=== PATIENT | female | born 1950 | race Caucasian/White ===

== ENCOUNTER 2016-10-18 18:59 | Inpatient (IN) | payer MEDICARE, BC ==
[~2016-10-18] VITALS: Ht 167.6 cm; Wt 88.2 kg
[~2016-10-18 18:59] MED LIST: ACET325T9 PO; ASPI325T4 PO; CHOL10003 PO; CYCL10TA2 PO; DIAZ5TAB4 PO; DIVA250T6 PO; DIVA500T9 PO; DOCU240C30 PO; FLUO10CA13 PO; FLUO10TA PO; FLUO20CA16 PO; FLUO20CA8 PO; FURO40TA4 PO; GLIM4TAB2 PO; GUAI-42 PO; HYDR-2679 PO; LANS30CA PO; LEVO100T PO; LEVO125T PO; LEVO150T PO; LEVO150T5 PO; LISI10TA2 PO; MAG30ORA2 PO; MAGN2400 PO; MAGN296S PO; MAGN400O4 PO; METH29OI TP; NICO1PAT21 TD; NYST60PO TP; OMEP20CA9 PO; OXYB10TA PO; OXYB5TAB7 PO; PANT40TA5 PO; PHEN100T82 PO; RISP1TAB3 PO; SENN8.6T3 PO; SIMV40TA3 PO; SULF1TAB24 PO; TRAZ100T12 PO; TRAZ150T55 PO
--- NOTE | 2016-10-18 19:02 | ED.ADGEN ---
Past History Past Medical History: Anxiety, Bipolar, Bronchitis, Depression, GERD, High Cholesterol, Hypertension, Hypothyroid, Sinusitis Past Surgical History: Appendectomy, Other Smoking: Less than 1pk/day Alcohol Use: Occasionally Drug Use: None Adult General Chief Complaint Chief Complaint '" This foot sore is getting worse.. I was at Dr. Brooks office.. and he said if it got worse .. I would need to be admitted.. I was at [facility] and they would not let me smoke.. so I left there and came over here..." HPI HPI Patient is a 66 year old female who presents with above hx and complaints of right foot diabetic ulcer. The areas approximately 3 x 3 cm with surrounding erythema and swelling. Does have erythema and streaking up the legs. Patient complains of pain in foot that is a deep ache. Patient does have a history of diabetes. Patient does have a history of peripheral neuropathy. Patient does have history of peripheral vascular disease. Patient normally follows with Dr. Brooks. She states she is up-to-date with tetanus. No recent travel. No specific ill contacts. No history of immunosuppression other than her diabetes. Review of Systems Review of Systems Constitutional: Hx of fever or chills [] Eyes: Denies change in visual acuity, redness, or eye pain [] HENT: Denies nasal congestion or sore throat [] Respiratory: Denies cough or shortness of breath [] Cardiovascular: No additional information not addressed in HPI [] GI: Denies abdominal pain, nausea, vomiting, bloody stools or diarrhea [] : Denies dysuria or hematuria [] Musculoskeletal: Denies back pain or joint pain []. Complaints of Rt. foot pain Integument: Denies rash or skin lesions [] Diabetic foot ulcer and cellulitis Neurologic: Denies headache, focal weakness or sensory changes [] Endocrine: Denies polyuria or polydipsia [] Family History Family History Noncontributory Current Medications Current Medications Current Medications Medications (Trade) Dose Ordered Sig/Denice Start Time Stop Time Status Last Admin Dose Admin Aspirin 325 mg 325 mg 1X ONCE 10/18/16 20:00 10/18/16 20:01 DC 10/18/16 20:54 325 MG Sodium Chloride 1,000 ml @ 1,000 mls/hr Q1H 10/18/16 19:36 10/18/16 20:35 DC 10/18/16 20:55 1,000 MLS/HR Vancomycin HCl 1 each 1 each PRN DAILY PRN 10/18/16 20:15 10/18/16 21:48 DC Vancomycin HCl/ Sodium Chloride (Iv Sodium Chloride 0.9% 250ml) 250 ml @ 250 mls/hr 1X ONCE 10/18/16 20:00 10/18/16 20:12 DC Vancomycin HCl/ Sodium Chloride (Iv Sodium Chloride 0.9% 500ml) 500 ml @ 250 mls/hr 1X ONCE 10/18/16 20:30 10/18/16 22:29 DC 10/18/16 20:55 250 MLS/HR Allergies Allergies Allergies Coded Allergies Type Severity Reaction Last Updated Verified No Known Drug Allergies 09/27/16 No Physical Exam Physical Exam Constitutional: mild distress, non-toxic appearance. [] HENT: Normocephalic, atraumatic, bilateral external ears normal, oropharynx moist, no oral exudates, nose normal. [] Eyes: PERRLA, EOMI, conjunctiva normal, no discharge. [] Neck: Normal range of motion, no tenderness, supple, no stridor. [] Cardiovascular:Heart rate regular rhythm, no murmur [] Lungs & Thorax: Bilateral breath sounds equal with scattered wheezing on auscultation [] Abdomen: Bowel sounds normal, soft, no tenderness, no masses, no pulsatile masses. [] Obese. Old surgery scar. Skin: Warm, dry, no erythema, no rash. [] Back: No tenderness, no CVA tenderness. [] Extremities: Rt. foot tenderness, no cyanosis, no clubbing, ROM intact, bilateral ankle edema. []Dorsal Rt. foot ulcer and edema as per HPI. Neurologic: Alert and oriented X 3, normal motor function, decreased sensory function, no focal deficits noted. [] Psychologic: Affect normal, judgement normal, mood normal. [] Current Patient Data Vital Signs Vital Signs Date Time Temp Pulse Resp B/P Pulse Ox O2 Delivery O2 Flow Rate FiO2 10/18/16 21:34 83 18 128/89 100 Room Air 10/18/16 18:59 98.8 Lab Results Laboratory Tests Test 10/18/16 19:27 10/18/16 21:15 Glucose (Fingerstick) 117mg/dL (70-99) H White Blood Count 9.2x10^3/uL (4.0-11.0) Red Blood Count 4.40x10^6/uL (3.50-5.40) Hemoglobin 13.1g/dL (12.0-15.5) Hematocrit 40.5% (36.0-47.0) Mean Corpuscular Volume 92fL (79-100) Mean Corpuscular Hemoglobin 30pg (25-35) Mean Corpuscular Hemoglobin Concent 32g/dL (31-37) Red Cell Distribution Width 14.1% (11.5-14.5) Platelet Count 156x10^3/uL (140-400) Neutrophils (%) (Auto) 53% (31-73) Lymphocytes (%) (Auto) 37% (24-48) Monocytes (%) (Auto) 6% (0-9) Eosinophils (%) (Auto) 3% (0-3) Basophils (%) (Auto) 0% (0-3) Neutrophils # (Auto) 4.9x10^3uL (1.8-7.7) Lymphocytes # (Auto) 3.4x10^3/uL (1.0-4.8) Monocytes # (Auto) 0.6x10^3/uL (0.0-1.1) Eosinophils # (Auto) 0.3x10^3/uL (0.0-0.7) Basophils # (Auto) 0.0x10^3/uL (0.0-0.2) Urine Collection Type Unknown Urine Color Yellow Urine Clarity Hazy Urine pH 6.0 Urine Specific [place] 1.015 Urine Protein Neg (NEG-TRACE) Urine Glucose (UA) Negmg/dL (NEG) Urine Ketones (Stick) Negmg/dL (NEG) Urine Blood Neg (NEG) Urine Nitrite Neg (NEG) Urine Bilirubin Neg (NEG) Urine Urobilinogen Dipstick 0.2mg/dL (0.2 mg/dL) Urine Leukocyte Esterase Neg (NEG) Urine RBC Rare/HPF (0-2) Urine WBC Occ/HPF (0-4) Urine Squamous Epithelial Cells Many/LPF Urine Bacteria 0/HPF (0-FEW) Urine Opiates Screen Pos (NEG) Urine Methadone Screen Neg (NEG) Urine Barbiturates Neg (NEG) Urine Phencyclidine Screen Neg (NEG) Urine Amphetamine/Methamphetamine Neg (NEG) Urine Benzodiazepines Screen Pos (NEG) Urine Cocaine Screen Neg (NEG) Urine Cannabinoids Screen Neg (NEG) Urine Ethyl Alcohol Neg (NEG) EKG EKG I interpretation of EKG shows a sinus rhythm at 89. No acute morphology. No findings acute STEMI of contralateral changes. [] Radiology/Procedures Radiology/Procedures My interpretation of right foot film shows no obvious osteomyelitis. Does have findings of soft tissue edema. And degenerative joint changes [] My interpretation of chest x-ray shows degenerative joint changes. Some chronic changes of COPD. No large infiltrate. Course & Med Decision Making Course & Med Decision Making Pertinent Labs and Imaging studies reviewed. (See chart for details). Discussed presentation, testing and tx. plan with Dr. Workman . Will admit for further eval and tx. [] Final Impression Final Impression 1. Diabetic Foot Rt. 2. COPD 3. DM 4. Tobacco Use Problems: Dragon Disclaimer Dragon Disclaimer This electronic medical record was generated, in whole or in part, using a voice recognition dictation system. EDISON BENITEZ MD Oct 18, 2016 19:01
[2016-10-18] MEDS ORDERED: IV NORMAL SALINE 1,000ML 1,000 ML IV SCH (19:36)
[2016-10-18] MEDS ORDERED: VANCOMYCIN 1 GM in IV NORMAL SALINE 250ML 250 ML IV ONE (20:00)
[2016-10-18] MEDS ORDERED: ASPIRIN 325 MG TABLET PO ONE (20:00)
[2016-10-18] MEDS ORDERED: VANCOMYCIN PER PHARMACY MC PRN (20:15)
--- NOTE | 2016-10-18 20:19 | EKG ---
[address] [address] Test Date: 2016-10-18 Test Time: 20:18:55 Pat Name: ISABEL ADAMES Department: Room: Gender: F Metal Painter: LAYNE : 1950 Requested By: EDISON BENITEZ Order Number: [id number] Reading MD: Measurements Intervals [place] Rate: 89 P: 62 OK: 182 QRS: 45 QRSD: 88 T: 46 QT: 340 QTc: 415 Interpretive Statements SINUS RHYTHM NORMAL ECG RI6.01 Unconfirmed report Compared to ECG 06/27/2015 15:22:28 No significant changes
[2016-10-18] MEDS ORDERED: VANCOMYCIN 2 GM in IV NORMAL SALINE 500ML 500 ML IV ONE (20:30)
[2016-10-18] MEDS ORDERED: ONDANSETRON PF 4 MG/2 ML VIAL. IV PRN (21:45)
[2016-10-18 21:59] LABS: BASO % 0 % (0-3); EOS # 0.3 x10^3/uL (0.0-0.7); EOS % 3 % (0-3); HEMATOCRIT 40.5 % (36.0-47.0); HEMOGLOBIN 13.1 g/dL (12.0-15.5); LYMPH # 3.4 x10^3/uL (1.0-4.8); LYMPH % 37 % (24-48); MEAN CORPUSCULAR HEMOGLOBIN 30 pg (25-35); MEAN CORPUSCULAR HGB CONC 32 g/dL (31-37); MEAN CORPUSCULAR VOLUME 92 fL (79-100); MONO # 0.6 x10^3/uL (0.0-1.1); MONO % 6 % (0-9); NEUT # 4.9 x10^3uL (1.8-7.7); NEUT % 53 % (31-73); PLATELET COUNT 156 x10^3/uL (140-400); RED CELL DISTRIBUTION WIDTH 14.1 % (11.5-14.5); WHITE BLOOD COUNT 9.2 x10^3/uL (4.0-11.0)
[2016-10-18 22:05] LABS: BARBITURATES NEG (NEG); BENZODIAZEPINES POS (NEG); CANNABINOIDS NEG (NEG); COCAINE NEG (NEG); METHADONE NEG (NEG); OPIATES POS (NEG); PHENCYCLIDINE NEG (NEG)
[2016-10-18 22:38] LABS: BILIRUBIN,URINE NEG (NEG); CLARITY,URINE HAZY; COLOR,URINE YELLOW; GLUCOSE,URINE NEG (NEG); NITRITE,URINE NEG (NEG); UROBILINOGEN,URINE 0.2 mg/dL (0.2 mg/dL)
[2016-10-18 22:39] LABS: BACTERIA,URINE 0 /HPF (0-FEW); RBC,URINE RARE /HPF (0-2); SQUAMOUS EPITHELIAL CELL,UR MANY /LPF; WBC,URINE OCC /HPF (0-4)
[2016-10-18 22:52] LABS: AMPHETAMINE/METHAMPHETAMINE NEG (NEG)
[2016-10-18] MEDS ORDERED: CEFTRIAXONE SODIUM 1 GM in IV NORMAL SALINE 50ML 50 ML IV SCH (23:00)
[2016-10-18 23:08] LABS: ALBUMIN 3.3 g/dL (3.4-5.0); DIRECT BILIRUBIN 0.1 mg/dL (0.0-0.2); POTASSIUM 4.2 mmol/L (3.5-5.1); TOTAL BILIRUBIN 0.2 mg/dL (0.2-1.0)
[2016-10-18 23:20] LABS: CREATININE 0.9 mg/dL (0.6-1.0); GFR 62.8; MAGNESIUM 1.8 mg/dL (1.8-2.4); TOTAL PROTEIN 7.2 g/dL (6.4-8.2)
[2016-10-18 23:29] LABS: CALCIUM 9.5 mg/dL (8.5-10.1)
[2016-10-18] MEDS ORDERED: IV NORMAL SALINE 500ML 500 ML ONE (23:50)
[2016-10-18 23:54] VITALS: BP 130/71
[2016-10-19] MEDS: ENOXAPARIN ** NOTE DOSE ** SYRINGE SQ SCH ×3 (00:07→20:28)
[2016-10-19] MEDS: METRONIDAZOLE 500mg PREMIX 100 ML IV SCH ×3 (00:08→14:00)
[2016-10-19] MEDS ORDERED: OXYB10TA PO (04:09)
[2016-10-19] MEDS ORDERED: FURO40TA4 PO (04:09)
[2016-10-19] MEDS ORDERED: OMEP20CA9 PO (04:09)
[2016-10-19] MEDS ORDERED: LISI10TA2 PO (04:09)
[2016-10-19] MEDS ORDERED: FLUO20CA8 PO (04:09)
[2016-10-19] MEDS ORDERED: PHEN100T91 PO (04:09)
[2016-10-19 05:00] VITALS: BP 120/73
[2016-10-19] MEDS: VANCOMYCIN PER PHARMACY MC PRN (07:52)
--- NOTE | 2016-10-19 08:03 | RAD ---
Indication: Right foot redness, swelling, abrasion, and pain. Technique: 3 views of the right foot are submitted for review. No comparison is available. Findings: There is no fracture or dislocation. There is hallux valgus deformity noted. There are degenerative changes most notably at the first metatarsal-phalangeal joint. There is bone demineralization. There is a small plantar calcaneal spur. There is soft tissue swelling noted dorsally at the level of the metatarsals. Impression: Degenerative changes and soft tissue swelling. Negative for fracture or dislocation.
--- NOTE | 2016-10-19 08:04 | RAD ---
Indication: Chest pain. Technique: Two-view chest radiograph was obtained. Comparison is from June 27, 2015. Findings: The lungs are clear. There is no pleural effusion. The heart is not enlarged and there is no heart failure. There is minimal atheromatous disease in the thoracic aorta. There are mild degenerative changes in the spine. Impression: No acute thoracic findings.
[2016-10-19] MEDS: ASPIRIN 81 MG TAB.CHEW PO SCH (08:43)
[2016-10-19] MEDS: VANCOMYCIN 1.25 GM in IV NORMAL SALINE 250ML 250 ML IV SCH ×2 (08:44→20:27)
--- NOTE | 2016-10-19 09:36 | ACF ---
Admission Criteria Forms SKIN AND WOUND CARE Clinical Indications for Inpatient Care (Place 'X' for any and all applicable criteria): Ongoing inpatient care may be indicated for pressure, venous, arterial, or neuropathic ulcers, with ANY ONE of the following (2)(3)(8)(9)(21)(25): [ ]I. Need for ANY ONE of the following(26) [ ]a) Pressure ulcer closure procedures [ ]b) Skin grafting [ ]c) Wound debridement [ ]d) Dressing change under general anesthesia [ ]e) Arterial revascularization procedures(19) (Also use Aortofemoral or Aortoiliac Bypass or Femoral Popliteal Bypass Criteria as appropriate) [ ]f) Amputation (Also use Foot: Transmetatarsal Amputation or Knee: Amputation Above or Below Knee Criteria as appropriate) [ ]g) Diverting colostomy [ ]h) Other significant surgical treatment [X]II. Infection requiring inpatient care as indicated by ALL of the following( 27) [X]a) ANY ONE of the following signs of infection: [ ]i) Poorly approximated incision line. [ ]ii) Excessive drainage [ ]iii) Foul odor [ ]iv) Pus [X]v) Increased redness [ ]vi) Breakdown in tissue after suture removal [ ]vii) Fever [X]b) ANY ONE of the following findings: [ ]i) Mental status changes [ ]ii) Dehydration [ ]iii) Bacteremia [ ]iv) Perineal infection [ ]v) Hemodynamic instability [X]vi) High-risk conditions, such as ANY ONE of the following: [X]1) Poorly controlled diabetes [ ]2) Cirrhosis [ ]3) Neutropenia [ ]4) Asplenia [ ]5) HIV infection [ ]6) Immunosuppression Extended stay beyond goal length of stay for primary condition may be needed until ALL of the following are present(1)(2)(13)(21)(27): [ ]a) Tissue necrosis absent or treatment plan manageable at lower level of care [ ]b) Fistulas, tunneling, or underlying deep tissue infection absent or treated [ ]c) Purulence and tissue breakdown absent or improved [ ]d) Ulcer surgical repair absent or healing without complications [ ]e) Wound infection absent or manageable at lower level of care [ ]f) Comorbidities absent or manageable at lower level of care The original [employer] content created by [employer] has been revised. The portions of the content which have been revised are identified through the use of italic text or in bold, and [facility] has neither reviewed nor approved the modified material. All other unmodified content is copyright [facility]. Please see references footnoted in the original [facility] edition 2016 Admission Criteria Met?: Yes PATT OJEDA Oct 19, 2016 09:36
[2016-10-19 11:41] VITALS: BP 129/71
--- NOTE | 2016-10-19 12:40 | RAD ---
Bilateral lower extremity venous ultrasound, 10/19/2016: History: Bilateral leg edema and redness Duplex evaluation of the deep veins in the lower extremities was performed including grayscale, color-flow and spectral Doppler analysis. The femoral and popliteal veins demonstrate normal compressibility and normal responses to distal augmentation maneuvers. Color imaging of those vessels shows no evidence of intraluminal clot. The visualized deep veins in both calves are patent. IMPRESSION: There is no sonographic evidence of deep vein thrombosis in either lower extremity.
--- NOTE | 2016-10-19 12:47 | RAD ---
Bilateral lower extremity arterial ultrasound, 10/19/2016: History: Edema, right foot ulcer and pain Duplex evaluation of the major arteries in both lower extremities was performed including grayscale, color-flow and spectral Doppler analysis. There are mild scattered atherosclerotic plaques bilaterally. The Doppler waveforms at the common femoral and superficial femoral arterial levels are triphasic. No significant focal velocity elevation is seen in those vessels to suggest high-grade stenosis. Triphasic Doppler waveforms were also evident at both popliteal artery levels. In both lower legs the posterior tibial, peroneal and anterior tibial arteries are patent demonstrating good triphasic and biphasic Doppler waveforms. Patent dorsalis pedis arteries are present demonstrating similar amplitude biphasic and triphasic Doppler waveforms. IMPRESSION: Mild scattered atherosclerotic plaquing in both lower extremities without evidence of significant focal stenosis.
[2016-10-19] MEDS ORDERED: MAGNESIUM HYDROXIDE 2,400 MG/30 ML ORAL.SUSP. PO PRN (14:15)
[2016-10-19] MEDS ORDERED: MAGNESIUM CITRATE 296 ML SOLUTION. PO PRN (14:15)
[2016-10-19] MEDS ORDERED: ACETAMINOPHEN 325 MG TABLET PO PRN (14:15)
[2016-10-19] MEDS ORDERED: CYCLOBENZAPRINE 10 MG TABLET. PO PRN (14:15)
[2016-10-19] MEDS ORDERED: PHENAZOPYRIDINE 100 MG TABLET. PO PRN (14:15)
[2016-10-19] MEDS ORDERED: traZODone 150 MG TABLET. PO PRN (14:15)
--- NOTE | 2016-10-19 14:59 | HP ---
ADMIT DATE: 10/19/2016 HISTORY OF PRESENT ILLNESS: The patient is a 66-year-old female patient who came to the Emergency Room of [facility] complaining that apparently she was advised by her primary care physician to get admitted and she went to [facility] and they were not let her smoke, so she left that hospital and came to our Emergency Room where she was found to have cellulitis of her right foot and was admitted to continue IV antibiotic. She has ___ dorsum of her right foot around 09/12/2016 according to her 2017, but opened and denied diabetic foot ulcer that approximately 3.3 cm with erythema and swelling that extends half way to the leg ____ it seems that the redness and swelling is receding, although the patient does not complain of any pain. She is able to walk. She has diabetic peripheral neuropathy. She was started on IV vancomycin as well as Flagyl and ceftriaxone. PAST MEDICAL HISTORY: Significant for type 2 diabetes mellitus, hypertension, hyperlipidemia, congestive heart failure, recurrent urinary tract infection, hypothyroidism, and multiple TIAs. She is also deaf in her left ear and has obstructive sleep apnea and underwent uvulopalatoplasty for that. PAST SURGICAL HISTORY: Significant for appendectomy, cervical spine fracture, left shoulder surgery, back surgery, and uvulopalatoplasty for obstructive sleep apnea. ALLERGIES: She has no known drug allergies. FAMILY HISTORY: She has 3 brothers and 1 sister, all brothers are diabetic, one of them committed suicide. Father at age of 71 due to myocardial infarction. Her father also had a CVA and cancer. Mother at age of 92 because of lung disease and complications of diabetes. SOCIAL HISTORY: She is . She has one daughter and one son. She continues to smoke. MEDICATIONS: She is currently on the following medications, she is on Tylenol 650 mg every 4 hours as needed for pain, cholecalciferol 1000 international units p.o. daily, cyclobenzaprine 10 mg 3 times a day, divalproex 1000 mg at bedtime, docusate sodium 240 mg once a day, fluoxetine 20 mg once a day, furosemide 40 mg once a day, glimepiride 4 mg b.i.d. with meals, levothyroxine sodium 150 mcg once a day, lisinopril 10 mg once a day, magnesium citrate one bottle p.o. every 72 hours for constipation, milk of magnesia 30 mL p.o. daily p.r.n. for constipation, Nystop to be applied topically twice a day, omeprazole 20 mg once a day, oxybutynin chloride 10 mg once a day, phenazopyridine 100 mg 3 times a day, senna 2 tablets twice a day, simvastatin 40 mg at bedtime, trazodone 150 mg at bedtime for insomnia. PHYSICAL EXAMINATION: GENERAL: On arrival to the Emergency Room, she looked well and was clearly in no apparent respiratory distress. Slightly pale, but no jaundice, cyanosis, or thyromegaly. No jugular venous distention. No limb edema. VITAL SIGNS: Her heart rate was 92, blood pressure 145/85, temperature was 98.8, respiratory rate was 18, and oxygen saturation was 96%. HEENT: Showed normocephalic and atraumatic. NECK: Supple. HEART: Showed normal first and second heart sounds. No gallop, rub, or murmur. CHEST: Clear to auscultation. No crepitation or rhonchi. ABDOMEN: Distended, soft, and nontender. NEUROLOGIC: She was awake, alert, and responding appropriately. Cranial nerves are intact. EXTREMITIES: She moves extremities without difficulty. She has diabetic foot ulcer that is scabbed with some erythema that is apparently receding. LABORATORY DATA: While in the Emergency Room, she had lab work done, which showed a white cell count of 9200, hemoglobin 13, hematocrit 40, MCV 92, and platelet count 156,000. Her chemistry showed a serum sodium 142, potassium 4.2, chloride 108, bicarbonate 26, anion gap of 8, BUN 15, creatinine 0.9, and estimated GFR was 63 mL per minute. Her glucose was 78, calcium was 9.5, and magnesium was 1.8. Total bilirubin, AST, ALT, and alkaline phosphatase were normal. Her beta natriuretic peptide was high at 941. Total protein was 7.2 and albumin 3.3. Her prothrombin time was 9.9, INR 1, and aPTT was 31. Urinalysis was essentially unremarkable. The urine was yellow and hazy with a pH of 6 and specific gravity of 1.015. The urine was negative for protein, glucose, ketones, blood nitrite, and leukocyte esterase. There are no bacteria. No rbc's and no wbc's. Her urine toxic screen was positive for opiates and benzodiazepine. Negative for methadone, barbiturates, minocycline, amphetamine, methamphetamine, cocaine, cannabinoids, and alcohol. DIAGNOSTIC DATA: She did have x-ray of her right foot showed no fracture or dislocation. There is hallux valgus deformity noted. There are degenerative changes most notably at the first metatarsophalangeal joint. There is bone demineralization. There is a small plantar calcaneal spur. There is soft tissue swelling noted dorsally at the level of the metatarsals. Her chest x-ray showed no acute thoracic finding. Apparently, she has bilateral lower extremity venous Doppler ultrasound, which showed no sonographic evidence of deep vein thrombosis in either lower extremity and she has also arterial Doppler ultrasound, which showed that there is mild scattered atherosclerotic plaquing in both lower extremities without evidence of significant focal stenosis. ASSESSMENT AND PLAN: The patient was admitted with right foot diabetic ulcer. She was started on vancomycin, Rocephin, and Flagyl. We will continue with her other home medications. STACEY MOORE MD DR: TASHI/paresh JOB#: [id number] / [id number]
[2016-10-19] MEDS: PIPERACILLIN/TAZOBACTAM 3.375 GM in IV NORMAL SALINE 50ML 50 ML IV SCH ×2 (15:22→22:07)
[2016-10-19 15:47] VITALS: BP 123/70
[2016-10-19] MEDS: GLIMEPIRIDE 4 MG TABLET PO SCH (17:06)
--- NOTE | 2016-10-19 18:39 | RAD ---
PROCEDURE AP chest radiograph. HISTORY PICC line placement. COMPARISON October 18, 2016. FINDINGS Cardiac silhouette appears within normal limits for size. No pneumothorax or pleural effusion is seen. No large consolidation is identified. There is evidence of mild atelectasis. There is a right-sided PICC line. The tip is somewhat difficult to see, but is thought to be at the atriocaval junction, projecting in satisfactory location. IMPRESSION 1. Right-sided PICC line tip is thought to project at the atriocaval junction in satisfactory location. 2. Bilateral atelectasis. Electronically signed by: Peter Gaona MD (Oct 19, 2016 18:39:03)
[2016-10-19 19:00] VITALS: BP 152/82
[2016-10-19] MEDS: SENNOSIDES 8.6 MG TABLET PO SCH (20:28)
[2016-10-19] MEDS: SIMVASTATIN 40 MG TABLET. PO SCH (20:28)
[2016-10-19] MEDS: DIVALPROEX ER 500 MG TAB.ER.24H PO SCH (20:29)
[2016-10-19] MEDS: OXYBUTYNIN CHLORIDE 5 MG TABLET PO SCH (20:29)
[2016-10-19] MEDS: NYSTATIN TOPICAL POWDER 30GM BOTTLE. TP SCH (21:00)
--- NOTE | 2016-10-19 21:01 | PN ---
DATE: 10/19/2016 SUBJECTIVE: The patient is resting, slightly propped up in bed, in no apparent distress. She did continue to complain of some pain in her right foot, but denied any chills, rigors, or fever. She can put on weight. She did have venous Doppler ultrasound which showed no evidence of DVT and arterial Doppler ultrasound which showed no evidence of any focal stenosis. PHYSICAL EXAMINATION: GENERAL: When I examined her this afternoon, she looked well and was clearly in no apparent respiratory distress, pale, but no jaundice, cyanosis, or thyromegaly. No jugular venous distention. No limb edema. VITAL SIGNS: Her heart rate was 90, blood pressure 129/71, temperature was 98.3, respiratory rate 20, and oxygen saturation was 96%. HEAD, EYES, EARS, NOSE AND THROAT: Normocephalic, atraumatic. NECK: Supple. HEART: Showed normal first and second heart sounds with no gallop, rub or murmur. CHEST: Clear to auscultation. No crepitation or rhonchi. ABDOMEN: Distended, soft, nontender. No guarding or rigidity. No organomegaly. Hernial orifices intact. Bowel sounds normal. NEUROLOGIC: She was awake, alert, responding appropriately. Cranial nerves intact. She moves extremities without difficulty. She has diabetic foot ulcer on the dorsum of the right foot with some swelling and an area at the scab surrounding erythema. The erythema apparently has receded distally. Her intake was 2750, no output was recorded. LABORATORY DATA: No lab work done this morning. PLAN: My plan is to discontinue her Flagyl and ceftriaxone and switch her to Zosyn, continue with vancomycin and she probably needs a PICC line placed. STACEY MOORE MD DR: TASHI/paresh JOB#: [id number] / [id number]
[2016-10-20 02:25] VITALS: BP 142/85
[2016-10-20 05:00] VITALS: BP 127/79
[2016-10-20] MEDS: PIPERACILLIN/TAZOBACTAM 3.375 GM in IV NORMAL SALINE 50ML 50 ML IV SCH ×3 (05:41→22:24)
[2016-10-20] MEDS: LEVOTHYROXINE 150 MCG TABLET PO SCH (07:20)
[2016-10-20] MEDS: VANCOMYCIN 1.25 GM in IV NORMAL SALINE 250ML 250 ML IV SCH ×2 (08:21→09:00)
[2016-10-20] MEDS: GLIMEPIRIDE 4 MG TABLET PO SCH ×2 (08:21→17:31)
[2016-10-20] MEDS: ASPIRIN 81 MG TAB.CHEW PO SCH (08:21)
[2016-10-20] MEDS: NYSTATIN TOPICAL POWDER 30GM BOTTLE. TP SCH ×2 (08:21→20:44)
[2016-10-20] MEDS: DOCUSATE CALCIUM 240 MG CAPSULE PO SCH (08:22)
[2016-10-20] MEDS: CHOLECALCIFEROL (VITAMIN D3) 1,000 UNIT TABLET PO SCH (08:22)
[2016-10-20] MEDS: FUROSEMIDE 40 MG TABLET PO SCH (08:22)
[2016-10-20] MEDS: PANTOPRAZOLE 40 MG TABLET. PO SCH (08:22)
[2016-10-20] MEDS: OXYBUTYNIN CHLORIDE 5 MG TABLET PO SCH ×2 (08:22→20:34)
[2016-10-20] MEDS: FLUOXETINE HCL 20 MG CAPSULE PO SCH (08:22)
[2016-10-20] MEDS: LISINOPRIL 10 MG TABLET PO SCH (08:22)
[2016-10-20] MEDS: SENNOSIDES 8.6 MG TABLET PO SCH ×2 (08:23→20:36)
[2016-10-20] MEDS: ENOXAPARIN ** NOTE DOSE ** SYRINGE SQ SCH ×2 (08:25→20:36)
[2016-10-20 08:55] LABS: ALBUMIN 3.3 g/dL (3.4-5.0); ALBUMIN/GLOBULIN RATIO 0.8 (1.0-1.7); C REACTIVE PROTEIN 6.1 mg/L (0-3.3); CALCIUM 9.5 mg/dL (8.5-10.1); GFR 55.6; POTASSIUM 4.4 mmol/L (3.5-5.1); TOTAL BILIRUBIN 0.3 mg/dL (0.2-1.0); TOTAL PROTEIN 7.2 g/dL (6.4-8.2); VANC TR 26.1 mcg/mL (10.0-20.0)
[2016-10-20 10:51] VITALS: BP 152/88
[2016-10-20] MEDS: VANCOMYCIN PER PHARMACY MC PRN (11:34)
[2016-10-20] MEDS ORDERED: ASPI325T4 PO (11:43)
[2016-10-20] MEDS ORDERED: GOLD1CAP5 PO (11:44)
[2016-10-20] MEDS ORDERED: IBUP800T PO (11:45)
[2016-10-20] MEDS ORDERED: GLUC100018 PO (11:45)
[2016-10-20] MEDS ORDERED: MULT-208 PO (11:46)
[2016-10-20] MEDS ORDERED: OMEG1CAP38 PO (11:47)
[2016-10-20] MEDS ORDERED: PANT40TA5 PO (11:47)
[2016-10-20 14:27] VITALS: BP 121/62
--- NOTE | 2016-10-20 14:44 | RAD ---
Three-phase bone scan, 10/20/2016: History: Right foot wound Imaging of the feet was performed following IV injection of 26 mCi of technetium 99m MDP. The dynamic flow study demonstrates generalized hyperemia involving the right foot and ankle compared to the left. A focal area of increased activity developed at the left hindfoot level on the later images of the flow study. This is also evident on the blood pool images. There is a lesser degree of abnormal focal activity at the left midfoot level medially. On the delayed images there is moderate focal increased activity in the anterior calcaneal region on the left near the calcaneocuboid articulation, similar to that seen on the blood pool images. There is also mildly increased activity medially at the left midfoot level similar to that seen on the blood pool images. On the right, there is a focus of increased activity in the region of the calcaneocuboid articulation on the delayed images. This is a nonspecific appearance, likely due to arthritis. No abnormal osseous uptake is seen over the dorsum of the right foot in the reported region of the patient's foot wound. IMPRESSION: 1. Small focus of nonspecific increased activity at approximately the right calcaneocuboid joint level, likely due to arthritis. 2. No abnormal osseous uptake at the dorsal midfoot level on the right to suggest osteomyelitis. 3. Hyperemia and abnormal bony activity in the left calcaneocuboid articulation region and along the medial aspect of the left midfoot of uncertain significance. Correlation with radiographic findings is suggested.
[2016-10-20] MEDS ORDERED: ERTA1VIA IJ (15:32)
[2016-10-20] MEDS ORDERED: DOXY100T9 PO (15:32)
[2016-10-20 15:54] LABS: BASO # 0.1 x10^3/uL (0.0-0.2); BASO % 1 % (0-3); EOS # 0.3 x10^3/uL (0.0-0.7); EOS % 4 % (0-3); HEMATOCRIT 40.6 % (36.0-47.0); HEMOGLOBIN 13.2 g/dL (12.0-15.5); LYMPH # 3.1 x10^3/uL (1.0-4.8); LYMPH % 41 % (24-48); MEAN CORPUSCULAR HEMOGLOBIN 30 pg (25-35); MEAN CORPUSCULAR HGB CONC 32 g/dL (31-37); MEAN CORPUSCULAR VOLUME 91 fL (79-100); MONO # 0.6 x10^3/uL (0.0-1.1); MONO % 8 % (0-9); NEUT # 3.5 x10^3uL (1.8-7.7); NEUT % 46 % (31-73); PLATELET COUNT 152 x10^3/uL (140-400); RED BLOOD COUNT 4.46 x10^6/uL (3.50-5.40); RED CELL DISTRIBUTION WIDTH 13.4 % (11.5-14.5); WHITE BLOOD COUNT 7.6 x10^3/uL (4.0-11.0)
[2016-10-20 17:03] LABS: SEDIMENTATION RATE 23 (0-25)
[2016-10-20 19:50] VITALS: BP 120/77
[2016-10-20] MEDS: DIVALPROEX ER 500 MG TAB.ER.24H PO SCH (20:34)
[2016-10-20] MEDS: SIMVASTATIN 40 MG TABLET. PO SCH (20:36)
[2016-10-20] MEDS ORDERED: VANCOMYCIN 1.25 GM in IV NORMAL SALINE 250ML 250 ML IV SCH (21:00)
[2016-10-20 23:23] VITALS: BP 140/81
--- NOTE | 2016-10-21 00:40 | PN ---
DATE: 10/20/2016 SUBJECTIVE: The patient is resting, slightly propped up in bed, in no apparent distress. The nursing staff did not voice any concern except that she is not allowing to treat her wound on her dorsum of the right foot that is scabbed. Apparently, her primary care physician did not order any cultures from her wounds as an outpatient; however, she remains afebrile and hemodynamically stable with normal white cell count. I did speak with ____ and he recommended discharging her home on Invanz and doxycycline; however, we will continue today with vancomycin and Zosyn and eventually she will be discharged tomorrow home with home health. She already had a PICC line. PHYSICAL EXAMINATION: GENERAL: On examining her, she looked well, slightly pale, but no jaundice, cyanosis or thyromegaly. No jugular venous distention. No limb edema. VITAL SIGNS: Her heart rate was 91, blood pressure 121/62, temperature was 98.6, respiratory rate was 20 and oxygen saturation was 96%. The rest of clinical examination is unremarkable and has not really changed. LABORATORY DATA: Her lab work this morning showed a serum sodium 145, potassium 4.4, chloride 108, bicarbonate 30, anion gap of 7, BUN 12, creatinine 1, estimated GFR was 55 mL per minute. Her glucose was 74. Calcium was 9.5. Total bilirubin, AST, ALT, alkaline phosphatase were normal. Her C-reactive protein was only 6.1 mg/dL. Total protein was 7.2. Albumin was 3.3. ASSESSMENT: Diabetic foot ulcer, to continue with IV antibiotic in the form of vancomycin and Zosyn, type 2 diabetes seemed to be well controlled, hypertension seemed to be well controlled, congestive heart failure seemed to be clinically well-compensated, hyperlipidemia on atorvastatin and hypothyroidism for which she is on levothyroxine 150 mcg once a day. STACEY MOORE MD DR: TASHI/paresh JOB#: [id number] / [id number]
[2016-10-21] MEDS: PIPERACILLIN/TAZOBACTAM 3.375 GM in IV NORMAL SALINE 50ML 50 ML IV SCH (05:54)
[2016-10-21 06:02] VITALS: BP 125/62
[2016-10-21] MEDS: LEVOTHYROXINE 150 MCG TABLET PO SCH (06:09)
[2016-10-21] MEDS: DOCUSATE CALCIUM 240 MG CAPSULE PO SCH (08:17)
[2016-10-21] MEDS: SENNOSIDES 8.6 MG TABLET PO SCH (08:17)
[2016-10-21] MEDS: FUROSEMIDE 40 MG TABLET PO SCH (08:18)
[2016-10-21] MEDS: ENOXAPARIN ** NOTE DOSE ** SYRINGE SQ SCH (08:18)
[2016-10-21] MEDS: LISINOPRIL 10 MG TABLET PO SCH (08:18)
[2016-10-21] MEDS: CHOLECALCIFEROL (VITAMIN D3) 1,000 UNIT TABLET PO SCH (08:18)
[2016-10-21] MEDS: ASPIRIN 81 MG TAB.CHEW PO SCH (08:18)
[2016-10-21] MEDS: FLUOXETINE HCL 20 MG CAPSULE PO SCH (08:18)
[2016-10-21] MEDS: GLIMEPIRIDE 4 MG TABLET PO SCH (08:18)
[2016-10-21] MEDS: PANTOPRAZOLE 40 MG TABLET. PO SCH (08:18)
[2016-10-21] MEDS: OXYBUTYNIN CHLORIDE 5 MG TABLET PO SCH (08:18)
[2016-10-21] MEDS: NYSTATIN TOPICAL POWDER 30GM BOTTLE. TP SCH (08:19)
[2016-10-21 10:56] VITALS: BP 127/57
[2016-10-21] MEDS ORDERED: ERTAPENEM 1 GM in IV NORMAL SALINE 50ML 50 ML IV ONE (11:00)
--- NOTE | 2016-10-23 21:29 | DS ---
DATE OF DISCHARGE: 10/21/2016 HOSPITAL COURSE: The patient is a 66-year-old female patient who was admitted with diabetic foot ulcer and was started on IV vancomycin and Zosyn. She did very well and remained afebrile, hemodynamically stable with normal white cell count, and a decision was made to discharge her home with home health to continue with antibiotic in the form of Invanz as well as oral doxycycline, and to follow with her primary care physician as an outpatient. PHYSICAL EXAMINATION: GENERAL: On examining her on the day of discharge, she looked well and was clearly in no apparent respiratory distress, pale, but no jaundice, cyanosis or thyromegaly. No jugular venous distention. No limb edema. VITAL SIGNS: Her heart rate was 101, blood pressure was 127/57, temperature was 98.3, respiratory rate was 20, and oxygen saturation was 97%. HEAD, EYES, EARS, NOSE AND THROAT: Showed normocephalic, atraumatic. NECK: Supple. HEART: Showed normal first and second heart sounds with no gallop, rub or murmur. CHEST: Clear to auscultation. No crepitation or rhonchi. ABDOMEN: Distended, soft, nontender. No guarding or rigidity. No organomegaly. Hernial orifices intact. Bowel sounds are normal. NEUROLOGIC: She was awake, alert, responding appropriately. Cranial nerves are intact. She moves extremities without difficulty. She ambulates without assistance or assistive devices. EXTREMITIES: Has a diabetic foot ulcer with wound scabbed. The erythema has largely resolved faded away as well as the swelling. LABORATORY DATA: On day of discharge showed a white cell count 7600, hemoglobin 13, hematocrit 40, MCV 91, and platelet count of 152,000. Her serum sodium was 145, potassium 4.4, chloride 108, bicarbonate 30, anion gap of 7, BUN 12, creatinine 1, estimated GFR was 55 mL per minute. Her glucose was 74, calcium was 9.5. Total bilirubin, AST, ALT, alkaline phosphatase were normal. Her C-reactive protein was 6.1. Total protein was 7.2, albumin was 3.3. Her sedimentation rate was 23. DISCHARGE MEDICATIONS: She was discharged home to continue on doxycycline 100 mg p.o. b.i.d. for 10 days and ertapenem sodium for Invanz 1 gram IV daily for 10 days. She should continue on Tylenol 650 mg every 4 hours, aspirin 325 mg once a day, cholecalciferol, vitamin D3 2000 International units once a day, Flexeril 10 mg 3 times a day, divalproex sodium 1000 mg p.o. at bedtime, Colace, docusate calcium 240 mg at bedtime, fluoxetine 20 mg once a day, glimepiride 4 mg twice a day, glucosamine sulfate 1500 mg p.o. b.i.d., ibuprofen 800 mg twice a day, levothyroxine sodium 150 mcg once a day, magnesium citrate 296 mL p.o. daily p.r.n. for constipation, milk of magnesia 30 mL p.o. daily p.r.n. for constipation, multivitamin 1 tablet once a day, Nystop powder applied topically twice a day, [place]-3 fatty acid 2 capsules once a day, oxybutynin chloride 10 mg daily, Protonix 40 mg once a day, phenazopyridine 100 mg t.i.d., senna 2 tablets twice a day, simvastatin 40 mg at bedtime. FINAL DISCHARGE DIAGNOSES: 1. Diabetic foot ulcer, to continue with IV antibiotic in the form of ertapenem and oral doxycycline. 2. Type 2 diabetes, seems to be reasonably controlled. 3. Hypertension. 4. Hyperlipidemia. 5. Congestive heart failure. 6. Hypothyroidism. STACEY MOORE MD DR: TASHI/paresh JOB#: [id number] / [id number]
== END 2016-10-21 14:06 | disposition home health service (06) | DRG 638 ==
LOC: ER 18:59 → 1 SOUTH 21:43
PROVIDERS: ADMIT Internal Medicine; ATTEND Internal Medicine
DX: E11.621 Type 2 diabetes mellitus with foot ulcer (principal); L03.115 Cellulitis of right lower limb; E03.9 Hypothyroidism, unspecified; E11.42 Type 2 diabetes mellitus with diabetic polyneuropathy; E78.00 Pure hypercholesterolemia, unspecified; E78.5 Hyperlipidemia, unspecified; F17.200 Nicotine dependence, unspecified, uncomplicated; G47.33 Obstructive sleep apnea (adult) (pediatric); H91.90 Unspecified hearing loss, unspecified ear; I11.0 Hypertensive heart disease with heart failure; F41.9 Anxiety disorder, unspecified; K21.9 Gastro-esophageal reflux disease without esophagitis; L97.519 Non-pressure chronic ulcer of other part of right foot with unspecified severity; I50.9 Heart failure, unspecified; F32.9 Major depressive disorder, single episode, unspecified; Z82.3 Family history of stroke; Z82.49 Family history of ischemic heart disease and other diseases of the circulatory system; Z86.73 Personal history of transient ischemic attack (TIA), and cerebral infarction without residual deficits; Z83.3 Family history of diabetes mellitus; Z87.440 Personal history of urinary (tract) infections; Z90.49 Acquired absence of other specified parts of digestive tract
CPT/HCPCS: 36415; 36569; 71010; 71020; 73630; 78315; 80048; 80053; 80076; 80202; 81001; 82553; 82947; 83690; 83735; 83880; 84443; 84484; 85027; 85610; 85651; 85730; 86140; 87040; 93005; 93923; 93970; 96365; 96366; 96374; A9503; G0481; J0696; J1335; J1650; J2543; J3370; J3490; J7040; J7050; 99285-25; J7030

== ENCOUNTER 2016-12-02 18:54 | Inpatient (IN) | payer MEDICARE, BC ==
[~2016-12-02] VITALS: Ht 167.6 cm; Wt 85.3 kg
[~2016-12-02 18:54] MED LIST changes: -ASPI325T4 PO; +ASPI325T8 PO; +CYCL-331 PO; -CYCL10TA2 PO; +DOXY100T9 PO; +ERTA1VIA IJ; +GLUC100018 PO; +GOLD1CAP5 PO; +GUAI-107 PO; -GUAI-42 PO; +IBUP800T19 PO; -MAGN296S PO; +MAGN296S9 PO; -MAGN400O4 PO; +MAGN400O7 PO; +MULT-208 PO; +OMEG1CAP38 PO; +PHEN-443 PO; +SENN-79 PO; -SENN8.6T3 PO; +TRAZ-90 PO; -TRAZ100T12 PO; +TRAZ150T49 PO; -TRAZ150T55 PO
--- NOTE | 2016-12-02 19:46 | EKG ---
[address] [address] Test Date: 2016-12-02 Test Time: 19:45:27 Pat Name: ISABEL ADAMES Department: Room: Gender: F Nursing Faculty: : [id number] Requested By: STEVE HOLLOWAY Order Number: [id number] Reading MD: Norman Owen Measurements Intervals [place] Rate: 82 P: 66 RI: 200 QRS: 30 QRSD: 88 T: 47 QT: 362 QTc: 426 Interpretive Statements SINUS RHYTHM Electronically Signed On 12-06-2016 9:38:01 CDT by Norman Owen
[2016-12-02] MEDS ORDERED: 0.9 % SODIUM CHLORIDE 10 ML DISP.SYRIN. IV PRN (20:30)
[2016-12-02 20:37] LABS: BASO # 0.1 x10^3/uL (0.0-0.2); BASO % 0 % (0-3); EOS # 0.2 x10^3/uL (0.0-0.7); EOS % 2 % (0-3); HEMATOCRIT 41.9 % (36.0-47.0); HEMOGLOBIN 13.9 g/dL (12.0-15.5); LYMPH # 3.2 x10^3/uL (1.0-4.8); LYMPH % 25 % (24-48); MEAN CORPUSCULAR HEMOGLOBIN 30 pg (25-35); MEAN CORPUSCULAR HGB CONC 33 g/dL (31-37); MEAN CORPUSCULAR VOLUME 91 fL (79-100); MONO # 0.8 x10^3/uL (0.0-1.1); MONO % 6 % (0-9); NEUT # 8.5 x10^3uL (1.8-7.7); NEUT % 67 % (31-73); PLATELET COUNT 238 x10^3/uL (140-400); RED BLOOD COUNT 4.63 x10^6/uL (3.50-5.40); RED CELL DISTRIBUTION WIDTH 14.7 % (11.5-14.5); WHITE BLOOD COUNT 12.7 x10^3/uL (4.0-11.0)
[2016-12-02 20:41] LABS: CALCIUM 10.1 mg/dL (8.5-10.1); CREATININE 1.5 mg/dL (0.6-1.0); GFR 34.9; POTASSIUM 3.6 mmol/L (3.5-5.1)
[2016-12-02 20:42] LABS: SALIC 5.4 mg/dL (2.8-20.0)
[2016-12-02 20:43] LABS: ACETAMIN < 2.0 mcg/mL (10-30)
[2016-12-02] MEDS ORDERED: IV NORMAL SALINE 1,000ML 1,000 ML IV SCH (20:45)
[2016-12-02 21:15] LABS: BACTERIA,URINE 0 /HPF (0-FEW); BILIRUBIN,URINE NEG (NEG); CLARITY,URINE CLEAR; COLOR,URINE STRAW; GLUCOSE,URINE NEG (NEG); NITRITE,URINE NEG (NEG); RBC,URINE OCC /HPF (0-2); UROBILINOGEN,URINE 0.2 mg/dL (0.2 mg/dL)
[2016-12-02 21:16] LABS: SQUAMOUS EPITHELIAL CELL,UR FEW /LPF
--- NOTE | 2016-12-02 21:16 | PHYS DOC ---
General Chief Complaint: PSYCH EVALUATION Stated Complaint: patient is in a manic phase of her bipolar Time Seen by MD: 19:02 Source: patient, family Exam Limitations: clinical condition Problems: History of Present Illness Initial Comments Patient is a pleasant 66-year-old female with history of bipolar disorder and anxiety bronchitis depression and reflux cholesterol hypertension and thyroidism sinusitis or surgical history of appendicitis removed by appendectomy presents with manic episode. She is in an extended care facility has had 3 distinct manic episodes requiring hospitalization in the last 6 months. Patient was seen and assessed by a neonatal social worker today who recommended family that she was brought into the ER for evaluation and admission. Patient personally denies any auditory or visual hallucinations denies any suicidal or homicidal thoughts denies any chest pain abdominal pain or other symptoms at this time she's been very noncompliant with medication and actually sound recording her medications of the last several weeks she's not been eating sleeping or drinking Timing/Duration: getting worse, changing over time Severity: severe Associated Symptoms: denies symptoms Allergies: Coded Allergies: No Known Drug Allergies (Unverified , 09/27/16) Past Medical History Psych/General History: anxiety, bipolar, depression, other (hypothyroidism bronchitis anxiety hypertension sinusitis depression and reflux) Surgical History: noncontributory Social History Smoker: non-smoker Alcohol: none Drugs: none Review of Systems Constitutional: no symptoms reported EENTM: no symptoms reported Respiratory: no symptoms reported Cardiovascular: no symptoms reported Gastrointestinal: no symptoms reported Genitourinary: no symptoms reported Musculoskeletal: no symptoms reported Skin: no symptoms reported Psychiatric/Neurological: anxiety All Other Systems: Reviewed and Negative Physical Exam General Appearance: no apparent distress HEENT: PERRL/EOMI, normal ENT inspection Neck: non-tender, full range of motion Respiratory: chest non-tender, lungs clear Cardiovascular: normal peripheral pulses, regular rate, rhythm, no edema Gastrointestinal: normal bowel sounds, non tender, soft Extremities: normal range of motion Neurological/Psychiatric: alert, calm, oriented x 3 Appearance/Memory/Insight: appropriate appearance, denies illness, impaired insight Behavior/Eye Contact/Speech: avoids eye contact, compulsive Thoughts/Hallucinations: delusions, flight of ideas, incoherent Skin: normal color, warm/dry Orders, Labs, Meds Vital Signs Date Time Temp Pulse Resp B/P Pulse Ox O2 Delivery O2 Flow Rate FiO2 12/02/16 19:47 97.7 82 20 98 Room Air Vital Signs Date Time Temp Pulse Resp B/P Pulse Ox O2 Delivery O2 Flow Rate FiO2 12/02/16 19:47 97.7 82 20 98 Room Air Patient is a pleasant 66-year-old female with history of bipolar disorder presently in a manic phase. She's had some very bizarre grandiose behavior becoming increasingly agitated. She is gotten involved in a number of difficult situations she's been hoarding her medications and not treating her problems as appropriate. She is brought here by family clear that she was not adequately medicated. Inner margin from she's been human of stable although she has had some flights of ideas and some confusion she became relatively somnolent when it was discovered her Accu-Chek was 43 at that point in time patient was fed repeatedly and now has normal glucose levels. With that her mental status is baseline but is still confused and she has been evaluated by social work and psychiatric consultation here in the emergency department and she has been accepted to the senior behavioral health floor at [facility]. Vital Signs Date Time Temp Pulse Resp B/P Pulse Ox O2 Delivery O2 Flow Rate FiO2 12/02/16 19:47 97.7 82 20 98 Room Air Vital Signs Date Time Temp Pulse Resp B/P Pulse Ox O2 Delivery O2 Flow Rate FiO2 12/02/16 19:47 97.7 82 20 98 Room Air Patient's BUN/creatinine are mildly elevated which demonstrate probably decreased oral intake both food and fluids given her hypoglycemia. It is also noted that her CMP: no e/o severe acidosis, alkalosis, renal failure, diabetic ketoacidosis, liver disease were normal With the exception of glucose. It also is noted that the patient's EKG was unremarkable, patient's EKG actually was read by [id number] that showed a heart rate of 82 with a normal QRS normal sinus rhythm no ischemic changes electrolyte abnormalities noted on QRS formation. Analysis was evaluated concerning only slightly red blood cells minimal white blood cells but no bacteria. Doubt UTI as a cause of her symptoms. Patient was accepted and admitted to . She is stable for transfer vital signs within normal limits. Final impression bipolar disorder manic phase. No glycemia dehydration STEVE HOLLOWAY MD Dec 02, 2016 21:16
[2016-12-02] MEDS ORDERED: DEXTROSE 50% 25 GM / 50ML DISP.SYRIN. IV ONE (21:30)
--- NOTE | 2016-12-03 01:46 | ACF ---
Admission Criteria Forms PSYCHIATRIC DISORDERS Clinical Indications for Inpatient Care (Place 'X' for any and all applicable criteria): Ongoing inpatient care may be needed for ANY ONE of the following(1)(2)(3)(4)(6) (7)(8): [ ]I. Danger to self or others not manageable at lower level of care. [ ]II. Grave disability (eg, inability to perform self care necessary at lower level of care) [ ]III. Agitation or inappropriate behavior interfering with care for primary condition (eg, attempting to discontinue lines or drains prematurely, unable to cooperate with respiratory care) [X ]IV. Severe disability or disorder indicated by ALL of the following: [X ]a) Severe behavioral health disorder-related symptoms or condition indicated by ANY ONE of the following: [ ]i) Severe problem with cognition, memory, judgment, or impulse control [X ]ii) Severe clinical manifestations (eg, hallucinations , delusions, other acute psychotic symptoms, toño, extreme agitation or anxiety) [X ]b) Patient management at lower level of care is not feasible until acute intervention or modification is initiated. Extended stay beyond goal length of stay for the primary condition may be indicated when ANY ONE of the following is present: (1)(2)(3)(4): [ ]a) Patient is a danger to self or others and not manageable at lower level of care. [ ]b) Behavior crisis management, including physical or chemical restraints, is required and is not available at a lower level of care. [ ]c) Behavioral symptoms (e.g., agitation, somnolence, inappropriate behavior) are present, and are not manageable at a lower level of care. [ ]d) Patient cannot understand follow-up treatment and crisis plan. [ ]e) Provider and supports are not sufficiently available at lower level of care. [ ]f) Patient cannot participate (e.g., verify absence of plan for harm) and is in needed of monitoring. The original [facility] [employer] content created by [facility] [employer] has been revised. The portions of the content which have been revised are identified through the use of italic text or in bold, and [facility] has neither reviewed nor approved the modified material. All other unmodified content is copyright [facility]. Please see references footnoted in the original [facility] edition 2016 Admission Criteria Met?: Yes ALOK DICK Dec 03, 2016 01:46
[2016-12-03 02:11] VITALS: BP 98/58
[2016-12-03] MEDS ORDERED: TRAZ150T49 PO ×2 (02:14)
[2016-12-03] MEDS ORDERED: FLUO10CA13 PO (02:14)
[2016-12-03] MEDS ORDERED: METHYL SALICYLATE/MENTHOL TOPICAL OINTMENT 29GM TUBE. TP PRN (02:15)
[2016-12-03] MEDS ORDERED: MAG HYDROX/AL HYDROX/SIMETH 30 ML ORAL.SUSP PO PRN (02:15)
[2016-12-03] MEDS ORDERED: CYCLOBENZAPRINE 10 MG TABLET. PO PRN (02:30)
[2016-12-03] MEDS ORDERED: MAGNESIUM CITRATE 296 ML SOLUTION. PO PRN (02:30)
[2016-12-03] MEDS ORDERED: NYSTATIN TOPICAL POWDER 15GM BOTTLE. TP PRN (02:30)
[2016-12-03 03:17] LABS: VAL ACID 70 mcg/mL (50-100)
[2016-12-03 05:50] VITALS: BP 91/61
[2016-12-03] MEDS ORDERED: LEVOTHYROXINE 150 MCG TABLET PO SCH (07:00)
[2016-12-03] MEDS: FLUoxetine HCL 10 MG CAPSULE PO SCH (08:13)
[2016-12-03] MEDS: NICOTINE 21MG PATCH. TD SCH (08:13)
[2016-12-03] MEDS: CHOLECALCIFEROL (VITAMIN D3) 1,000 UNIT TABLET PO SCH (08:13)
[2016-12-03] MEDS: OXYBUTYNIN CHLORIDE 5 MG TABLET PO SCH ×2 (08:13→20:00)
[2016-12-03] MEDS: SENNOSIDES 8.6 MG TABLET PO SCH ×2 (08:13→20:01)
[2016-12-03] MEDS: PANTOPRAZOLE 40 MG TABLET. PO SCH (08:13)
[2016-12-03] MEDS: GLIMEPIRIDE 4 MG TABLET PO SCH ×2 (08:13→17:00)
[2016-12-03 15:36] VITALS: BP 110/79
[2016-12-03 19:09] LABS: T3 TOTAL 110 ng/dL (71-180); THYROXINE 13.1 ug/dL (4.5-12.0)
[2016-12-03] MEDS: DOCUSATE CALCIUM 240 MG CAPSULE PO SCH (20:00)
[2016-12-03] MEDS: traZODone 150 MG TABLET. PO SCH (20:00)
[2016-12-03] MEDS: SIMVASTATIN 40 MG TABLET. PO SCH (20:00)
[2016-12-03] MEDS: DIVALPROEX ER 500 MG TAB.ER.24H PO SCH (20:00)
--- NOTE | 2016-12-03 20:58 | PDOC ---
Exam Cory Demential Exam: Cory Note: Please also refer to the separate dictated note~for this date of service dictated separately.~Patient seen individually. Discussed the patient with Nursing staff reviewed the chart.~Reviewed interim history and current functioning. Reviewed vital signs,~Labs/ Radiology~and current medications noted below. Continue current treatment with the changes noted in the dictated addendum note Assessment: Vital Signs: Vital Signs Date Time Temp Pulse Resp B/P Pulse Ox O2 Delivery O2 Flow Rate FiO2 12/03/16 15:36 98.4 91 20 110/79 98 Room Air Labs: Laboratory Tests Test 12/02/16 21:23 12/02/16 22:28 12/03/16 00:14 12/03/16 07:41 Glucose (Fingerstick) 45mg/dL (70-99) L 122mg/dL (70-99) H 121mg/dL (70-99) H 81mg/dL (70-99) Test 12/03/16 11:16 12/03/16 16:46 12/03/16 19:08 Glucose (Fingerstick) 168mg/dL (70-99) H 129mg/dL (70-99) H 210mg/dL (70-99) H Current Medications: Meds: Current Medications Sodium Chloride (Iv Sodium Chloride 0.9% 1,000ml) 1,000 ml @ 1,000 mls/hr Q1H IV ; Start 12/02/16 at 20:45; Stop 12/02/16 at 21:44; Status DC Sodium Chloride (Normal Saline Flush) 10 ml QSHIFT PRN IV AFTER MEDS AND BLOOD DRAWS; Start 12/02/16 at 20:30 Dextrose 25 gm 1X ONCE IV ; Start 12/02/16 at 21:30; Stop 12/02/16 at 21:38; Status DC Acetaminophen (Tylenol) 650 mg PRN Q6HRS PRN PO PAIN / TEMP; Start 12/03/16 at 02:15 Multi-Ingredient Ointment (Analgesic [place]) 1 gisselle PRN QID PRN TP MUSCLE PAIN; Start 12/03/16 at 02:15 Al Hydroxide/Mg Hydroxide (Mylanta Plus Xs) 15 ml PRN AFTMEALHC PRN PO DYSPEPSIA; Start 12/03/16 at 02:15 Magnesium Hydroxide (Milk Of Magnesia) 2,400 mg PRN QHS PRN PO CONSTIPATION; Start 12/03/16 at 02:15 Nicotine (Nicoderm Cq 21mg) 1 patch DAILY TD Last administered on 12/03/16 08: 13; Start 12/03/16 at 09:00 Fluoxetine HCl (Prozac) 10 mg DAILY PO Last administered on 12/03/16 08:13; Start 12/03/16 at 09:00 Trazodone HCl (Desyrel) 150 mg PRN QHS PRN PO INSOMNIA; Start 12/03/16 at 02:15 Trazodone HCl (Desyrel) 150 mg QHS PO Last administered on 12/03/16 20:00; Start 12/03/16 at 21:00 Divalproex Sodium (Depakote Er) 1,000 mg QHS PO Last administered on 12/03/16 20:00; Start 12/03/16 at 21:00 Vitamin D (Vitamin D3) 2,000 unit DAILY PO Last administered on 12/03/16 08:13 ; Start 12/03/16 at 09:00 Cyclobenzaprine HCl (Flexeril) 10 mg PRN TID PRN PO MUSCLE SPASMS; Start at 02:30 Docusate Calcium (Surfak) 240 mg QHS PO Last administered on 12/03/16 20:00; Start 12/03/16 at 21:00 Glimepiride (Amaryl) 4 mg BIDWMEALS PO Last administered on 12/03/16 08:13; Start 12/03/16 at 08:00; Stop 12/03/16 at 18:04; Status DC Levothyroxine Sodium (Synthroid) 150 mcg DAILY07 PO Last administered on 05:53; Start 12/03/16 at 07:00; Stop 12/03/16 at 18:04; Status DC Magnesium Citrate (Citroma) 296 ml PRN DAILY PRN PO CONSTIPATION; Start at 02:30 Nystatin (Nystop) 1 gisselle PRN BID PRN TP YEAST; Start 12/03/16 at 02:30 Pantoprazole Sodium (Protonix) 40 mg DAILYAC PO Last administered on 12/03/16 08:13; Start 12/03/16 at 07:30 Sennosides (Senna) 17.2 mg BID PO Last administered on 12/03/16 20:01; Start 12/03/16 at 09:00 Simvastatin (Zocor) 40 mg QHS PO Last administered on 12/03/16 20:00; Start at 21:00 Oxybutynin Chloride (Ditropan) 5 mg BID PO Last administered on 12/03/16 20:00 ; Start 12/03/16 at 09:00 Glimepiride (Amaryl) 2 mg BIDWMEALS PO ; Start 12/04/16 at 08:00 Levothyroxine Sodium (Synthroid) 75 mcg DAILY07 PO ; Start 12/04/16 at 07:00 Cetirizine HCl (Zyrtec) 10 mg DAILY PO ; Start 12/04/16 at 09:00; Stop 12/06/16 at 09:01 Active Scripts Active Reported Trazodone Hcl 150 Mg Tablet 150 Mg PO PRN QHS PRN Repeat dose to be administered if Scheduled dose is not effective Trazodone Hcl 150 Mg Tablet 150 Mg PO QHS Prozac (Fluoxetine Hcl) 10 Mg Capsule 10 Mg PO DAILY Pantoprazole Sodium 40 Mg Tablet.dr 40 Mg PO DAILY Oxybutynin Chloride Er (Oxybutynin Chloride) 10 Mg Tab.er.24 10 Mg PO DAILY Phenazopyridine Hcl 100 Mg Tablet 100 Mg PO PRN TID Magnesium Citrate 296 Ml Solution 296 Ml PO PRN DAILY PRN Milk Of Magnesia (Magnesium Hydroxide) 400 Mg/5 Ml Oral.susp 2,400 Mg PO PRN QHS PRN Nystop (Nystatin) 60 Gm Powder 1 Gisselle TP PRN BID PRN Senna (Sennosides) 8.6 Mg Tablet 17.2 Mg PO BID Surfak (Docusate Calcium) 240 Mg Capsule 240 Mg PO QHS Glimepiride 4 Mg Tablet 4 Mg PO BIDWMEALS Simvastatin 40 Mg Tablet 40 Mg PO QHS Cyclobenzaprine Hcl 10 Mg Tablet 10 Mg PO PRN TID PRN Levothyroxine Sodium 150 Mcg Tablet 150 Mcg PO DAILY07 Tylenol (Acetaminophen) 325 Mg Tablet 650 Mg PO PRN Q6HRS PRN Max Acetaminophen dose is 4000mg in 24 hours from all sources for adults may resume as needed Vitamin D3 (Cholecalciferol (Vitamin D3)) 1,000 Unit Tablet 2,000 Unit PO DAILY Divalproex Sodium 500 Mg Tablet.dr 1,000 Mg PO HS Diagnosis: Problems: (1) Medical clearance for psychiatric admission (2) Suicidal ideation (3) Cellulitis (4) Diabetic foot ulcer (5) Bipolar 1 disorder, manic, moderate (6) Depressed bipolar I disorder (7) Insomnia (8) Diabetes mellitus GEOFF PAREKH MD Dec 03, 2016 20:58
[2016-12-04 03:16] LABS: HEMOGLOBIN A1C 5.7 % (4.8-5.6)
[2016-12-04] MEDS: LEVOTHYROXINE 75 MCG TABLET PO SCH (05:45)
[2016-12-04 05:57] VITALS: BP 142/83
[2016-12-04] MEDS: OXYBUTYNIN CHLORIDE 5 MG TABLET PO SCH ×2 (07:52→20:06)
[2016-12-04] MEDS: NICOTINE 21MG PATCH. TD SCH (07:52)
[2016-12-04] MEDS: PANTOPRAZOLE 40 MG TABLET. PO SCH (07:52)
[2016-12-04] MEDS: SENNOSIDES 8.6 MG TABLET PO SCH ×2 (07:52→20:06)
[2016-12-04] MEDS: CHOLECALCIFEROL (VITAMIN D3) 1,000 UNIT TABLET PO SCH (07:53)
[2016-12-04] MEDS: FLUoxetine HCL 10 MG CAPSULE PO SCH (07:53)
[2016-12-04] MEDS: GLIMEPIRIDE 2 MG TABLET PO SCH ×2 (08:03→17:43)
[2016-12-04] MEDS: CETIRIZINE HCL 10 MG TABLET PO SCH (08:05)
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
[2016-12-04 16:26] VITALS: BP 108/56
[2016-12-04] MEDS: traZODone 150 MG TABLET. PO SCH (20:06)
[2016-12-04] MEDS: SIMVASTATIN 40 MG TABLET. PO SCH (20:06)
[2016-12-04] MEDS: DIVALPROEX ER 500 MG TAB.ER.24H PO SCH (20:06)
[2016-12-04] MEDS: DOCUSATE CALCIUM 240 MG CAPSULE PO SCH (20:06)
[2016-12-04] MEDS ORDERED: risperiDONE 0.25 MG TABLET. PO SCH (21:00)
--- NOTE | 2016-12-04 22:25 | PDOC ---
Exam Cory Demential Exam: Cory Note: Please also refer to the separate dictated note~for this date of service dictated separately.~Patient seen individually. Discussed the patient with Nursing staff reviewed the chart.~Reviewed interim history and current functioning. Reviewed vital signs,~Labs/ Radiology~and current medications noted below. Continue current treatment with the changes noted in the dictated addendum note Assessment: Vital Signs: Vital Signs Date Time Temp Pulse Resp B/P Pulse Ox O2 Delivery O2 Flow Rate FiO2 12/04/16 16:26 97.6 73 15 108/56 96 12/03/16 15:36 Room Air I&O Intake and Output 12/04/16 07:00 Intake Total 1320 ml Balance 1320 ml Intake Oral 1320 ml Labs: Laboratory Tests Test 12/04/16 07:08 12/04/16 11:45 12/04/16 17:11 12/04/16 19:26 Glucose (Fingerstick) 54mg/dL (70-99) L 151mg/dL (70-99) H 115mg/dL (70-99) H 149mg/dL (70-99) H Current Medications: Meds: Current Medications Sodium Chloride (Iv Sodium Chloride 0.9% 1,000ml) 1,000 ml @ 1,000 mls/hr Q1H IV ; Start 12/02/16 at 20:45; Stop 12/02/16 at 21:44; Status DC Sodium Chloride (Normal Saline Flush) 10 ml QSHIFT PRN IV AFTER MEDS AND BLOOD DRAWS; Start 12/02/16 at 20:30 Dextrose 25 gm 1X ONCE IV ; Start 12/02/16 at 21:30; Stop 12/02/16 at 21:38; Status DC Acetaminophen (Tylenol) 650 mg PRN Q6HRS PRN PO PAIN / TEMP; Start 12/03/16 at 02:15 Multi-Ingredient Ointment (Analgesic [place]) 1 gisselle PRN QID PRN TP MUSCLE PAIN; Start 12/03/16 at 02:15 Al Hydroxide/Mg Hydroxide (Mylanta Plus Xs) 15 ml PRN AFTMEALHC PRN PO DYSPEPSIA; Start 12/03/16 at 02:15 Magnesium Hydroxide (Milk Of Magnesia) 2,400 mg PRN QHS PRN PO CONSTIPATION; Start 12/03/16 at 02:15 Nicotine (Nicoderm Cq 21mg) 1 patch DAILY TD Last administered on 12/04/16 07: 52; Start 12/03/16 at 09:00 Fluoxetine HCl (Prozac) 10 mg DAILY PO Last administered on 12/04/16 07:53; Start 12/03/16 at 09:00 Trazodone HCl (Desyrel) 150 mg PRN QHS PRN PO INSOMNIA; Start 12/03/16 at 02:15 Trazodone HCl (Desyrel) 150 mg QHS PO Last administered on 12/04/16 20:06; Start 12/03/16 at 21:00 Divalproex Sodium (Depakote Er) 1,000 mg QHS PO Last administered on 12/04/16 20:06; Start 12/03/16 at 21:00 Vitamin D (Vitamin D3) 2,000 unit DAILY PO Last administered on 12/04/16 07:53 ; Start 12/03/16 at 09:00 Cyclobenzaprine HCl (Flexeril) 10 mg PRN TID PRN PO MUSCLE SPASMS; Start at 02:30 Docusate Calcium (Surfak) 240 mg QHS PO Last administered on 12/04/16 20:06; Start 12/03/16 at 21:00 Glimepiride (Amaryl) 4 mg BIDWMEALS PO Last administered on 12/03/16 08:13; Start 12/03/16 at 08:00; Stop 12/03/16 at 18:04; Status DC Levothyroxine Sodium (Synthroid) 150 mcg DAILY07 PO Last administered on 05:53; Start 12/03/16 at 07:00; Stop 12/03/16 at 18:04; Status DC Magnesium Citrate (Citroma) 296 ml PRN DAILY PRN PO CONSTIPATION; Start at 02:30 Nystatin (Nystop) 1 gisselle PRN BID PRN TP YEAST; Start 12/03/16 at 02:30 Pantoprazole Sodium (Protonix) 40 mg DAILYAC PO Last administered on 12/04/16 07:52; Start 12/03/16 at 07:30 Sennosides (Senna) 17.2 mg BID PO Last administered on 12/04/16 20:06; Start 12/03/16 at 09:00 Simvastatin (Zocor) 40 mg QHS PO Last administered on 12/04/16 20:06; Start at 21:00 Oxybutynin Chloride (Ditropan) 5 mg BID PO Last administered on 12/04/16 20:06 ; Start 12/03/16 at 09:00 Glimepiride (Amaryl) 2 mg BIDWMEALS PO Last administered on 12/04/16 17:43; Start 12/04/16 at 08:00 Levothyroxine Sodium (Synthroid) 75 mcg DAILY07 PO Last administered on 05:45; Start 12/04/16 at 07:00 Cetirizine HCl (Zyrtec) 10 mg DAILY PO Last administered on 12/04/16 08:05; Start 12/04/16 at 09:00; Stop 12/06/16 at 09:01 Risperidone (Risperdal) 0.25 mg HS PO Last administered on 12/04/16 20:06; Start 12/04/16 at 21:00 Active Scripts Active Reported Trazodone Hcl 150 Mg Tablet 150 Mg PO PRN QHS PRN Repeat dose to be administered if Scheduled dose is not effective Trazodone Hcl 150 Mg Tablet 150 Mg PO QHS Prozac (Fluoxetine Hcl) 10 Mg Capsule 10 Mg PO DAILY Pantoprazole Sodium 40 Mg Tablet.dr 40 Mg PO DAILY Oxybutynin Chloride Er (Oxybutynin Chloride) 10 Mg Tab.er.24 10 Mg PO DAILY Phenazopyridine Hcl 100 Mg Tablet 100 Mg PO PRN TID Magnesium Citrate 296 Ml Solution 296 Ml PO PRN DAILY PRN Milk Of Magnesia (Magnesium Hydroxide) 400 Mg/5 Ml Oral.susp 2,400 Mg PO PRN QHS PRN Nystop (Nystatin) 60 Gm Powder 1 Gisselle TP PRN BID PRN Senna (Sennosides) 8.6 Mg Tablet 17.2 Mg PO BID Surfak (Docusate Calcium) 240 Mg Capsule 240 Mg PO QHS Glimepiride 4 Mg Tablet 4 Mg PO BIDWMEALS Simvastatin 40 Mg Tablet 40 Mg PO QHS Cyclobenzaprine Hcl 10 Mg Tablet 10 Mg PO PRN TID PRN Levothyroxine Sodium 150 Mcg Tablet 150 Mcg PO DAILY07 Tylenol (Acetaminophen) 325 Mg Tablet 650 Mg PO PRN Q6HRS PRN Max Acetaminophen dose is 4000mg in 24 hours from all sources for adults may resume as needed Vitamin D3 (Cholecalciferol (Vitamin D3)) 1,000 Unit Tablet 2,000 Unit PO DAILY Divalproex Sodium 500 Mg Tablet.dr 1,000 Mg PO HS Diagnosis: Problems: (1) Bipolar 1 disorder, manic, moderate (2) Cellulitis (3) Suicidal ideation (4) Diabetic foot ulcer (5) Medical clearance for psychiatric admission (6) Depressed bipolar I disorder (7) Insomnia (8) Diabetes mellitus GEOFF PAREKH MD Dec 04, 2016 22:25
[2016-12-05] MEDS: LEVOTHYROXINE 75 MCG TABLET PO SCH (05:41)
[2016-12-05 06:06] VITALS: BP 98/64
[2016-12-05] MEDS: SENNOSIDES 8.6 MG TABLET PO SCH ×2 (07:21→19:35)
[2016-12-05] MEDS: CETIRIZINE HCL 10 MG TABLET PO SCH (07:21)
[2016-12-05] MEDS: NICOTINE 21MG PATCH. TD SCH (07:21)
[2016-12-05] MEDS: PANTOPRAZOLE 40 MG TABLET. PO SCH (07:22)
[2016-12-05] MEDS: FLUoxetine HCL 10 MG CAPSULE PO SCH (07:22)
[2016-12-05] MEDS: CHOLECALCIFEROL (VITAMIN D3) 1,000 UNIT TABLET PO SCH (07:22)
[2016-12-05] MEDS: OXYBUTYNIN CHLORIDE 5 MG TABLET PO SCH ×2 (07:22→19:34)
[2016-12-05] MEDS: GLIMEPIRIDE 2 MG TABLET PO SCH ×2 (07:22→17:51)
[2016-12-05 17:41] VITALS: BP 123/57
[2016-12-05] MEDS: DIVALPROEX ER 500 MG TAB.ER.24H PO SCH (19:35)
[2016-12-05] MEDS: traZODone 150 MG TABLET. PO SCH (19:35)
[2016-12-05] MEDS: SIMVASTATIN 40 MG TABLET. PO SCH (19:35)
[2016-12-05] MEDS: DOCUSATE CALCIUM 240 MG CAPSULE PO SCH (19:35)
[2016-12-05] MEDS: risperiDONE 0.5 MG TABLET. PO SCH (19:36)
[2016-12-05] MEDS: NYSTATIN 100,000 UNIT/GM TOPICAL OINTMENT 15GM TUBE. TP SCH (19:37)
[2016-12-06] MEDS: LEVOTHYROXINE 75 MCG TABLET PO SCH (05:43)
[2016-12-06 06:05] VITALS: BP 112/72
[2016-12-06] MEDS: NICOTINE 21MG PATCH. TD SCH (08:16)
[2016-12-06] MEDS: GLIMEPIRIDE 2 MG TABLET PO SCH ×2 (08:17→17:35)
[2016-12-06] MEDS: CETIRIZINE HCL 10 MG TABLET PO SCH (08:17)
[2016-12-06] MEDS: PANTOPRAZOLE 40 MG TABLET. PO SCH (08:17)
[2016-12-06] MEDS: CHOLECALCIFEROL (VITAMIN D3) 1,000 UNIT TABLET PO SCH (08:17)
[2016-12-06] MEDS: OXYBUTYNIN CHLORIDE 5 MG TABLET PO SCH ×2 (08:17→19:43)
[2016-12-06] MEDS: SENNOSIDES 8.6 MG TABLET PO SCH ×2 (08:18→19:42)
[2016-12-06] MEDS: FLUoxetine HCL 10 MG CAPSULE PO SCH (08:19)
[2016-12-06] MEDS: NYSTATIN 100,000 UNIT/GM TOPICAL OINTMENT 15GM TUBE. TP SCH ×2 (08:20→19:43)
--- NOTE | 2016-12-06 11:29 | PN ---
DATE: 12/04/2016 This is a late entry for 30, covers elements not covered in my initial note. Overall, the patient is making repeated telephone calls, somewhat manic, grandiose, compliant with the medications, valproic acid level is 70. REVIEW OF SYSTEMS: No CV, , pulmonary, eye, ENT system symptoms on review. MENTAL STATUS EXAM: Reasonably oriented. Speech coherent, abstraction fair, computation impaired, language function intact. Mood and affect remains somewhat grandiose, labile. LABORATORY DATA: Reviewed. IMPRESSION: Unchanged from initial note including bipolar 1 disorder mixed with psychotic features. PLAN: Continue Depakote, trazodone, Prozac, start Risperdal 0.25 mg at bedtime, adjust further as clinically indicated. MAN Frankie PAREKH MD DR: GEOVANY/paresh JOB#: [id number] / [id number]
[2016-12-06 15:45] VITALS: BP 161/85
[2016-12-06] MEDS: DOCUSATE CALCIUM 240 MG CAPSULE PO SCH (19:41)
[2016-12-06] MEDS: DIVALPROEX ER 500 MG TAB.ER.24H PO SCH (19:41)
[2016-12-06] MEDS: SIMVASTATIN 40 MG TABLET. PO SCH (19:41)
[2016-12-06] MEDS: risperiDONE 0.5 MG TABLET. PO SCH (19:43)
[2016-12-06] MEDS: traZODone 150 MG TABLET. PO SCH (19:43)
--- NOTE | 2016-12-06 20:40 | PDOC ---
Exam Cory Demential Exam: Cory Note: Please also refer to the separate dictated note~for this date of service dictated separately.~Patient seen individually. Discussed the patient with Nursing staff reviewed the chart.~Reviewed interim history and current functioning. Reviewed vital signs,~Labs/ Radiology~and current medications noted below. Continue current treatment with the changes noted in the dictated addendum note Assessment: Vital Signs: Vital Signs Date Time Temp Pulse Resp B/P Pulse Ox O2 Delivery O2 Flow Rate FiO2 12/06/16 15:45 97.8 81 18 161/85 98 12/03/16 15:36 Room Air I&O Intake and Output 12/06/16 07:00 Intake Total 1800 ml Balance 1800 ml Intake Oral 1800 ml Labs: Laboratory Tests Test 12/06/16 07:36 12/06/16 11:58 12/06/16 12:16 12/06/16 12:41 Glucose (Fingerstick) 97mg/dL (70-99) 56mg/dL (70-99) L 59mg/dL (70-99) L 96mg/dL (70-99) Test 12/06/16 17:15 12/06/16 19:16 Glucose (Fingerstick) 119mg/dL (70-99) H 178mg/dL (70-99) H Current Medications: Meds: Current Medications Sodium Chloride (Iv Sodium Chloride 0.9% 1,000ml) 1,000 ml @ 1,000 mls/hr Q1H IV ; Start 12/02/16 at 20:45; Stop 12/02/16 at 21:44; Status DC Sodium Chloride (Normal Saline Flush) 10 ml QSHIFT PRN IV AFTER MEDS AND BLOOD DRAWS; Start 12/02/16 at 20:30 Dextrose 25 gm 1X ONCE IV ; Start 12/02/16 at 21:30; Stop 12/02/16 at 21:38; Status DC Acetaminophen (Tylenol) 650 mg PRN Q6HRS PRN PO PAIN / TEMP; Start 12/03/16 at 02:15 Multi-Ingredient Ointment (Analgesic [place]) 1 gisselle PRN QID PRN TP MUSCLE PAIN; Start 12/03/16 at 02:15 Al Hydroxide/Mg Hydroxide (Mylanta Plus Xs) 15 ml PRN AFTMEALHC PRN PO DYSPEPSIA; Start 12/03/16 at 02:15 Magnesium Hydroxide (Milk Of Magnesia) 2,400 mg PRN QHS PRN PO CONSTIPATION; Start 12/03/16 at 02:15 Nicotine (Nicoderm Cq 21mg) 1 patch DAILY TD Last administered on 12/06/16 08: 16; Start 12/03/16 at 09:00 Fluoxetine HCl (Prozac) 10 mg DAILY PO Last administered on 12/06/16 08:19; Start 12/03/16 at 09:00 Trazodone HCl (Desyrel) 150 mg PRN QHS PRN PO INSOMNIA; Start 12/03/16 at 02:15 Trazodone HCl (Desyrel) 150 mg QHS PO Last administered on 12/06/16 19:43; Start 12/03/16 at 21:00 Divalproex Sodium (Depakote Er) 1,000 mg QHS PO Last administered on 12/06/16 19:41; Start 12/03/16 at 21:00 Vitamin D (Vitamin D3) 2,000 unit DAILY PO Last administered on 12/06/16 08:17 ; Start 12/03/16 at 09:00 Cyclobenzaprine HCl (Flexeril) 10 mg PRN TID PRN PO MUSCLE SPASMS; Start at 02:30 Docusate Calcium (Surfak) 240 mg QHS PO Last administered on 12/06/16 19:41; Start 12/03/16 at 21:00 Glimepiride (Amaryl) 4 mg BIDWMEALS PO Last administered on 12/03/16 08:13; Start 12/03/16 at 08:00; Stop 12/03/16 at 18:04; Status DC Levothyroxine Sodium (Synthroid) 150 mcg DAILY07 PO Last administered on 05:53; Start 12/03/16 at 07:00; Stop 12/03/16 at 18:04; Status DC Magnesium Citrate (Citroma) 296 ml PRN DAILY PRN PO CONSTIPATION; Start at 02:30 Nystatin (Nystop) 1 gisselle PRN BID PRN TP YEAST; Start 12/03/16 at 02:30; Status Cancel Pantoprazole Sodium (Protonix) 40 mg DAILYAC PO Last administered on 12/06/16 08:17; Start 12/03/16 at 07:30 Sennosides (Senna) 17.2 mg BID PO Last administered on 12/06/16 19:42; Start at 09:00 Simvastatin (Zocor) 40 mg QHS PO Last administered on 12/06/16 19:41; Start at 21:00 Oxybutynin Chloride (Ditropan) 5 mg BID PO Last administered on 12/06/16 19:43 ; Start 12/03/16 at 09:00 Glimepiride (Amaryl) 2 mg BIDWMEALS PO Last administered on 12/06/16 17:35; Start 12/04/16 at 08:00 Levothyroxine Sodium (Synthroid) 75 mcg DAILY07 PO Last administered on 05:43; Start 12/04/16 at 07:00 Cetirizine HCl (Zyrtec) 10 mg DAILY PO Last administered on 12/06/16 08:17; Start 12/04/16 at 09:00; Stop 12/06/16 at 09:01; Status DC Risperidone (Risperdal) 0.25 mg HS PO Last administered on 12/04/16 20:06; Start 12/04/16 at 21:00; Stop 12/05/16 at 19:14; Status DC Nystatin (Mycostatin) 1 gisselle BID TP Last administered on 12/06/16 19:43; Start 12/05/16 at 21:00 Risperidone (Risperdal) 0.5 mg QHS PO Last administered on 12/06/16 19:43; Start 12/05/16 at 21:00 Active Scripts Active Reported Trazodone Hcl 150 Mg Tablet 150 Mg PO PRN QHS PRN Repeat dose to be administered if Scheduled dose is not effective Trazodone Hcl 150 Mg Tablet 150 Mg PO QHS Prozac (Fluoxetine Hcl) 10 Mg Capsule 10 Mg PO DAILY Pantoprazole Sodium 40 Mg Tablet.dr 40 Mg PO DAILY Oxybutynin Chloride Er (Oxybutynin Chloride) 10 Mg Tab.er.24 10 Mg PO DAILY Phenazopyridine Hcl 100 Mg Tablet 100 Mg PO PRN TID Magnesium Citrate 296 Ml Solution 296 Ml PO PRN DAILY PRN Milk Of Magnesia (Magnesium Hydroxide) 400 Mg/5 Ml Oral.susp 2,400 Mg PO PRN QHS PRN Nystop (Nystatin) 60 Gm Powder 1 Gisselle TP PRN BID PRN Senna (Sennosides) 8.6 Mg Tablet 17.2 Mg PO BID Surfak (Docusate Calcium) 240 Mg Capsule 240 Mg PO QHS Glimepiride 4 Mg Tablet 4 Mg PO BIDWMEALS Simvastatin 40 Mg Tablet 40 Mg PO QHS Cyclobenzaprine Hcl 10 Mg Tablet 10 Mg PO PRN TID PRN Levothyroxine Sodium 150 Mcg Tablet 150 Mcg PO DAILY07 Tylenol (Acetaminophen) 325 Mg Tablet 650 Mg PO PRN Q6HRS PRN Max Acetaminophen dose is 4000mg in 24 hours from all sources for adults may resume as needed Vitamin D3 (Cholecalciferol (Vitamin D3)) 1,000 Unit Tablet 2,000 Unit PO DAILY Divalproex Sodium 500 Mg Tablet.dr 1,000 Mg PO HS Diagnosis: Problems: (1) Bipolar 1 disorder, manic, moderate (2) Cellulitis (3) Suicidal ideation (4) Diabetic foot ulcer (5) Medical clearance for psychiatric admission (6) Depressed bipolar I disorder (7) Insomnia (8) Diabetes mellitus GEOFF PAREKH MD December 06, 2016 20:40
--- NOTE | 2016-12-07 02:27 | PN ---
DATE: 12/05/2016 PSYCHIATRIC PROGRESS NOTE This is late entry of 12/05/2016. SUBJECTIVE: I met with the patient individually evening of 12/05/2016, discussed with nursing staff, reviewed the chart. The patient has had a better day on 12/05/2016, has been writing in her journal, remains somewhat paranoid. Fixated on being discharged, but limited insight into where she would be going since she believes she has been asked to leave her apartment. REVIEW OF SYSTEMS: No CV, , pulmonary, eye, ENT system symptoms on review. MENTAL STATUS EXAMINATION: Reasonably oriented. Speech coherent, less pressured. Abstraction fair, computation impaired, language function intact. Mood and affect somewhat labile, quasi manic at times. LABORATORY DATA: Valproic acid level 70, therapeutic. IMPRESSION: Bipolar 1 disorder, mixed with psychotic features, rest unchanged. PLAN: Continue Depakote 1000 mg at bedtime, level therapeutic, increase Risperdal from 0.25 mg at bedtime to 0.5 mg at bedtime, maintain Prozac 10 mg a day, trazodone at bedtime p.r.n. MAN Frankie PAREKH MD DR: GEOVANY/paresh JOB#: [id number] / [id number]
[2016-12-07] MEDS: LEVOTHYROXINE 75 MCG TABLET PO SCH (05:34)
[2016-12-07 06:28] VITALS: BP 116/79
[2016-12-07] MEDS: NYSTATIN 100,000 UNIT/GM TOPICAL OINTMENT 15GM TUBE. TP SCH ×2 (09:00→19:43)
[2016-12-07] MEDS: SENNOSIDES 8.6 MG TABLET PO SCH ×2 (09:00→19:41)
[2016-12-07] MEDS: OXYBUTYNIN CHLORIDE 5 MG TABLET PO SCH ×2 (09:57→19:41)
[2016-12-07] MEDS: NICOTINE 21MG PATCH. TD SCH (09:57)
[2016-12-07] MEDS: CHOLECALCIFEROL (VITAMIN D3) 1,000 UNIT TABLET PO SCH (09:57)
[2016-12-07] MEDS: FLUoxetine HCL 10 MG CAPSULE PO SCH (09:57)
[2016-12-07] MEDS: GLIMEPIRIDE 2 MG TABLET PO SCH ×2 (09:57→17:04)
[2016-12-07] MEDS: PANTOPRAZOLE 40 MG TABLET. PO SCH (09:58)
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
[2016-12-07 15:56] VITALS: BP 121/75
[2016-12-07] MEDS: DIVALPROEX ER 500 MG TAB.ER.24H PO SCH (19:40)
[2016-12-07] MEDS: traZODone 150 MG TABLET. PO SCH (19:40)
[2016-12-07] MEDS: risperiDONE 0.5 MG TABLET. PO SCH (19:41)
[2016-12-07] MEDS: DOCUSATE CALCIUM 240 MG CAPSULE PO SCH (19:42)
[2016-12-07] MEDS: SIMVASTATIN 40 MG TABLET. PO SCH (19:42)
[2016-12-07] MEDS ORDERED: risperiDONE 0.25 MG TABLET. PO SCH (21:00)
--- NOTE | 2016-12-07 21:15 | PDOC ---
Exam Cory Demential Exam: Cory Note: Please also refer to the separate dictated note~for this date of service dictated separately.~Patient seen individually. Discussed the patient with Nursing staff reviewed the chart.~Reviewed interim history and current functioning. Reviewed vital signs,~Labs/ Radiology~and current medications noted below. Continue current treatment with the changes noted in the dictated addendum note Assessment: Vital Signs: Vital Signs Date Time Temp Pulse Resp B/P Pulse Ox O2 Delivery O2 Flow Rate FiO2 12/07/16 15:56 97.6 81 20 121/75 99 12/03/16 15:36 Room Air I&O Intake and Output 12/07/16 07:00 Intake Total 1200 ml Balance 1200 ml Intake Oral 1200 ml # Voids 2 Labs: Laboratory Tests Test 12/07/16 07:44 12/07/16 11:22 12/07/16 16:38 12/07/16 19:02 Glucose (Fingerstick) 77mg/dL (70-99) 97mg/dL (70-99) 76mg/dL (70-99) 149mg/dL (70-99) H Current Medications: Meds: Current Medications Sodium Chloride (Iv Sodium Chloride 0.9% 1,000ml) 1,000 ml @ 1,000 mls/hr Q1H IV ; Start 12/02/16 at 20:45; Stop 12/02/16 at 21:44; Status DC Sodium Chloride (Normal Saline Flush) 10 ml QSHIFT PRN IV AFTER MEDS AND BLOOD DRAWS; Start 12/02/16 at 20:30 Dextrose 25 gm 1X ONCE IV ; Start 12/02/16 at 21:30; Stop 12/02/16 at 21:38; Status DC Acetaminophen (Tylenol) 650 mg PRN Q6HRS PRN PO PAIN / TEMP; Start 12/03/16 at 02:15 Multi-Ingredient Ointment (Analgesic [place]) 1 gisselle PRN QID PRN TP MUSCLE PAIN; Start 12/03/16 at 02:15 Al Hydroxide/Mg Hydroxide (Mylanta Plus Xs) 15 ml PRN AFTMEALHC PRN PO DYSPEPSIA; Start 12/03/16 at 02:15 Magnesium Hydroxide (Milk Of Magnesia) 2,400 mg PRN QHS PRN PO CONSTIPATION; Start 12/03/16 at 02:15 Nicotine (Nicoderm Cq 21mg) 1 patch DAILY TD Last administered on 12/07/16 09: 57; Start 12/03/16 at 09:00 Fluoxetine HCl (Prozac) 10 mg DAILY PO Last administered on 12/07/16 09:57; Start 12/03/16 at 09:00 Trazodone HCl (Desyrel) 150 mg PRN QHS PRN PO INSOMNIA; Start 12/03/16 at 02:15 Trazodone HCl (Desyrel) 150 mg QHS PO Last administered on 12/07/16 19:40; Start 12/03/16 at 21:00 Divalproex Sodium (Depakote Er) 1,000 mg QHS PO Last administered on 12/07/16 19:40; Start 12/03/16 at 21:00 Vitamin D (Vitamin D3) 2,000 unit DAILY PO Last administered on 12/07/16 09:57 ; Start 12/03/16 at 09:00 Cyclobenzaprine HCl (Flexeril) 10 mg PRN TID PRN PO MUSCLE SPASMS; Start at 02:30 Docusate Calcium (Surfak) 240 mg QHS PO Last administered on 12/07/16 19:42; Start 12/03/16 at 21:00 Glimepiride (Amaryl) 4 mg BIDWMEALS PO Last administered on 12/03/16 08:13; Start 12/03/16 at 08:00; Stop 12/03/16 at 18:04; Status DC Levothyroxine Sodium (Synthroid) 150 mcg DAILY07 PO Last administered on 05:53; Start 12/03/16 at 07:00; Stop 12/03/16 at 18:04; Status DC Magnesium Citrate (Citroma) 296 ml PRN DAILY PRN PO CONSTIPATION; Start at 02:30 Nystatin (Nystop) 1 gisselle PRN BID PRN TP YEAST; Start 12/03/16 at 02:30; Status Cancel Pantoprazole Sodium (Protonix) 40 mg DAILYAC PO Last administered on 12/07/16 09:58; Start 12/03/16 at 07:30 Sennosides (Senna) 17.2 mg BID PO Last administered on 12/07/16 19:41; Start at 09:00 Simvastatin (Zocor) 40 mg QHS PO Last administered on 12/07/16 19:42; Start at 21:00 Oxybutynin Chloride (Ditropan) 5 mg BID PO Last administered on 12/07/16 19:41 ; Start 12/03/16 at 09:00 Glimepiride (Amaryl) 2 mg BIDWMEALS PO Last administered on 12/07/16 17:04; Start 12/04/16 at 08:00 Levothyroxine Sodium (Synthroid) 75 mcg DAILY07 PO Last administered on 05:34; Start 12/04/16 at 07:00 Cetirizine HCl (Zyrtec) 10 mg DAILY PO Last administered on 12/06/16 08:17; Start 12/04/16 at 09:00; Stop 12/06/16 at 09:01; Status DC Risperidone (Risperdal) 0.25 mg HS PO Last administered on 12/04/16 20:06; Start 12/04/16 at 21:00; Stop 12/05/16 at 19:14; Status DC Nystatin (Mycostatin) 1 gisselle BID TP Last administered on 12/07/16 19:43; Start 12/05/16 at 21:00 Risperidone (Risperdal) 0.5 mg QHS PO Last administered on 12/07/16 19:41; Start 12/05/16 at 21:00; Stop 12/07/16 at 20:26; Status DC Risperidone (Risperdal) 0.25 mg 14,21 PO ; Start 12/08/16 at 14:00 Risperidone (Risperdal) 0.25 mg HS PO ; Start 12/07/16 at 21:00; Status UNV Active Scripts Active Reported Trazodone Hcl 150 Mg Tablet 150 Mg PO PRN QHS PRN Repeat dose to be administered if Scheduled dose is not effective Trazodone Hcl 150 Mg Tablet 150 Mg PO QHS Prozac (Fluoxetine Hcl) 10 Mg Capsule 10 Mg PO DAILY Pantoprazole Sodium 40 Mg Tablet.dr 40 Mg PO DAILY Oxybutynin Chloride Er (Oxybutynin Chloride) 10 Mg Tab.er.24 10 Mg PO DAILY Phenazopyridine Hcl 100 Mg Tablet 100 Mg PO PRN TID Magnesium Citrate 296 Ml Solution 296 Ml PO PRN DAILY PRN Milk Of Magnesia (Magnesium Hydroxide) 400 Mg/5 Ml Oral.susp 2,400 Mg PO PRN QHS PRN Nystop (Nystatin) 60 Gm Powder 1 Gisselle TP PRN BID PRN Senna (Sennosides) 8.6 Mg Tablet 17.2 Mg PO BID Surfak (Docusate Calcium) 240 Mg Capsule 240 Mg PO QHS Glimepiride 4 Mg Tablet 4 Mg PO BIDWMEALS Simvastatin 40 Mg Tablet 40 Mg PO QHS Cyclobenzaprine Hcl 10 Mg Tablet 10 Mg PO PRN TID PRN Levothyroxine Sodium 150 Mcg Tablet 150 Mcg PO DAILY07 Tylenol (Acetaminophen) 325 Mg Tablet 650 Mg PO PRN Q6HRS PRN Max Acetaminophen dose is 4000mg in 24 hours from all sources for adults may resume as needed Vitamin D3 (Cholecalciferol (Vitamin D3)) 1,000 Unit Tablet 2,000 Unit PO DAILY Divalproex Sodium 500 Mg Tablet.dr 1,000 Mg PO HS Diagnosis: Problems: (1) Bipolar 1 disorder, manic, moderate (2) Cellulitis (3) Suicidal ideation (4) Diabetic foot ulcer (5) Medical clearance for psychiatric admission (6) Depressed bipolar I disorder (7) Insomnia (8) Diabetes mellitus GEOFF PAREKH MD December 07, 2016 21:15
[2016-12-08] MEDS: LEVOTHYROXINE 75 MCG TABLET PO SCH (05:18)
[2016-12-08] MEDS: ACETAMINOPHEN 325 MG TABLET PO PRN (05:18)
[2016-12-08 06:29] VITALS: BP 123/79
--- NOTE | 2016-12-08 07:50 | PN ---
DATE: 12/06/2016 PSYCHIATRIC PROGRESS NOTE This is late entry of 12/06/2016, covers elements not covered in my initial note. SUBJECTIVE: Overall, the patient is doing better, less labile, still a little grandiose at times. Slept 5-1/4 hours. REVIEW OF SYSTEMS: No CV, , pulmonary, eye, ENT system symptoms on review. MENTAL STATUS EXAMINATION: Reasonably oriented. Speech coherent, less pressured. Abstraction fair, computation impaired, attention span short, language function intact. Mood and affect still somewhat labile, at times intermittently grandiose, but improved. LABORATORY DATA: Reviewed. IMPRESSION: Bipolar 1 disorder, mixed anxiety disorder, unspecified. PLAN: Continue Depakote 1000 mg at bedtime, level is 70, trazodone 150 at bedtime, may repeat x 1, Prozac 10 mg a day, Risperdal 0.5 mg at bedtime. Adjust further as clinically indicated. MAN Frankie PAREKH MD DR: GEOVANY/paresh JOB#: [id number] / [id number]
[2016-12-08] MEDS: NYSTATIN 100,000 UNIT/GM TOPICAL OINTMENT 15GM TUBE. TP SCH ×2 (09:00→19:40)
[2016-12-08] MEDS: SENNOSIDES 8.6 MG TABLET PO SCH ×2 (09:02→19:39)
[2016-12-08] MEDS: OXYBUTYNIN CHLORIDE 5 MG TABLET PO SCH ×2 (09:02→19:39)
[2016-12-08] MEDS: NICOTINE 21MG PATCH. TD SCH (09:02)
[2016-12-08] MEDS: PANTOPRAZOLE 40 MG TABLET. PO SCH (09:03)
[2016-12-08] MEDS: GLIMEPIRIDE 2 MG TABLET PO SCH ×2 (09:03→16:37)
[2016-12-08] MEDS: CHOLECALCIFEROL (VITAMIN D3) 1,000 UNIT TABLET PO SCH (09:03)
[2016-12-08] MEDS: FLUoxetine HCL 10 MG CAPSULE PO SCH (09:03)
[2016-12-08] MEDS: risperiDONE 0.25 MG TABLET. PO SCH ×2 (14:03→19:39)
[2016-12-08 15:43] VITALS: BP 123/73
[2016-12-08] MEDS: DIVALPROEX ER 500 MG TAB.ER.24H PO SCH (19:38)
[2016-12-08] MEDS: SIMVASTATIN 40 MG TABLET. PO SCH (19:38)
[2016-12-08] MEDS: traZODone 150 MG TABLET. PO SCH (19:38)
[2016-12-08] MEDS: DOCUSATE CALCIUM 240 MG CAPSULE PO SCH (19:39)
--- NOTE | 2016-12-08 21:02 | PDOC ---
Exam Cory Demential Exam: Cory Note: Please also refer to the separate dictated note~for this date of service dictated separately.~Patient seen individually. Discussed the patient with Nursing staff reviewed the chart.~Reviewed interim history and current functioning. Reviewed vital signs,~Labs/ Radiology~and current medications noted below. Continue current treatment with the changes noted in the dictated addendum note Assessment: Vital Signs: Vital Signs Date Time Temp Pulse Resp B/P Pulse Ox O2 Delivery O2 Flow Rate FiO2 12/08/16 15:43 98.6 70 19 123/73 100 12/03/16 15:36 Room Air I&O Intake and Output 12/08/16 07:00 Intake Total 1320 ml Balance 1320 ml Intake Oral 1320 ml # Voids 2 Labs: Laboratory Tests Test 12/08/16 07:23 12/08/16 11:55 12/08/16 16:52 12/08/16 19:16 Glucose (Fingerstick) 77mg/dL (70-99) 77mg/dL (70-99) 130mg/dL (70-99) H 131mg/dL (70-99) H Current Medications: Meds: Current Medications Sodium Chloride (Iv Sodium Chloride 0.9% 1,000ml) 1,000 ml @ 1,000 mls/hr Q1H IV ; Start 12/02/16 at 20:45; Stop 12/02/16 at 21:44; Status DC Sodium Chloride (Normal Saline Flush) 10 ml QSHIFT PRN IV AFTER MEDS AND BLOOD DRAWS; Start 12/02/16 at 20:30 Dextrose 25 gm 1X ONCE IV ; Start 12/02/16 at 21:30; Stop 12/02/16 at 21:38; Status DC Acetaminophen (Tylenol) 650 mg PRN Q6HRS PRN PO PAIN / TEMP Last administered on 12/08/16t 05:18; Start 12/03/16 at 02:15 Multi-Ingredient Ointment (Analgesic [place]) 1 gisselle PRN QID PRN TP MUSCLE PAIN; Start 12/03/16 at 02:15 Al Hydroxide/Mg Hydroxide (Mylanta Plus Xs) 15 ml PRN AFTMEALHC PRN PO DYSPEPSIA; Start 12/03/16 at 02:15 Magnesium Hydroxide (Milk Of Magnesia) 2,400 mg PRN QHS PRN PO CONSTIPATION; Start 12/03/16 at 02:15 Nicotine (Nicoderm Cq 21mg) 1 patch DAILY TD Last administered on 12/08/16 09: 02; Start 12/03/16 at 09:00 Fluoxetine HCl (Prozac) 10 mg DAILY PO Last administered on 12/08/16 09:03; Start 12/03/16 at 09:00 Trazodone HCl (Desyrel) 150 mg PRN QHS PRN PO INSOMNIA; Start 12/03/16 at 02:15 Trazodone HCl (Desyrel) 150 mg QHS PO Last administered on 12/08/16 19:38; Start 12/03/16 at 21:00 Divalproex Sodium (Depakote Er) 1,000 mg QHS PO Last administered on 12/08/16 19:38; Start 12/03/16 at 21:00 Vitamin D (Vitamin D3) 2,000 unit DAILY PO Last administered on 12/08/16 09:03 ; Start 12/03/16 at 09:00 Cyclobenzaprine HCl (Flexeril) 10 mg PRN TID PRN PO MUSCLE SPASMS; Start at 02:30 Docusate Calcium (Surfak) 240 mg QHS PO Last administered on 12/08/16 19:39; Start 12/03/16 at 21:00 Glimepiride (Amaryl) 4 mg BIDWMEALS PO Last administered on 12/03/16 08:13; Start 12/03/16 at 08:00; Stop 12/03/16 at 18:04; Status DC Levothyroxine Sodium (Synthroid) 150 mcg DAILY07 PO Last administered on 05:53; Start 12/03/16 at 07:00; Stop 12/03/16 at 18:04; Status DC Magnesium Citrate (Citroma) 296 ml PRN DAILY PRN PO CONSTIPATION; Start at 02:30 Nystatin (Nystop) 1 gisselle PRN BID PRN TP YEAST; Start 12/03/16 at 02:30; Status Cancel Pantoprazole Sodium (Protonix) 40 mg DAILYAC PO Last administered on 12/08/16 09:03; Start 12/03/16 at 07:30 Sennosides (Senna) 17.2 mg BID PO Last administered on 12/08/16 19:39; Start at 09:00 Simvastatin (Zocor) 40 mg QHS PO Last administered on 12/08/16 19:38; Start at 21:00 Oxybutynin Chloride (Ditropan) 5 mg BID PO Last administered on 12/08/16 19:39 ; Start 12/03/16 at 09:00 Glimepiride (Amaryl) 2 mg BIDWMEALS PO Last administered on 12/08/16 16:37; Start 12/04/16 at 08:00 Levothyroxine Sodium (Synthroid) 75 mcg DAILY07 PO Last administered on 05:18; Start 12/04/16 at 07:00 Cetirizine HCl (Zyrtec) 10 mg DAILY PO Last administered on 12/06/16 08:17; Start 12/04/16 at 09:00; Stop 12/06/16 at 09:01; Status DC Risperidone (Risperdal) 0.25 mg HS PO Last administered on 12/04/16 20:06; Start 12/04/16 at 21:00; Stop 12/05/16 at 19:14; Status DC Nystatin (Mycostatin) 1 gisselle BID TP Last administered on 12/08/16 19:40; Start 12/05/16 at 21:00 Risperidone (Risperdal) 0.5 mg QHS PO Last administered on 12/07/16 19:41; Start 12/05/16 at 21:00; Stop 12/07/16 at 20:26; Status DC Risperidone (Risperdal) 0.25 mg 14,21 PO Last administered on 12/08/16 19:39; Start 12/08/16 at 14:00 Risperidone (Risperdal) 0.25 mg HS PO ; Start 12/07/16 at 21:00; Status UNV Active Scripts Active Reported Trazodone Hcl 150 Mg Tablet 150 Mg PO PRN QHS PRN Repeat dose to be administered if Scheduled dose is not effective Trazodone Hcl 150 Mg Tablet 150 Mg PO QHS Prozac (Fluoxetine Hcl) 10 Mg Capsule 10 Mg PO DAILY Pantoprazole Sodium 40 Mg Tablet.dr 40 Mg PO DAILY Oxybutynin Chloride Er (Oxybutynin Chloride) 10 Mg Tab.er.24 10 Mg PO DAILY Phenazopyridine Hcl 100 Mg Tablet 100 Mg PO PRN TID Magnesium Citrate 296 Ml Solution 296 Ml PO PRN DAILY PRN Milk Of Magnesia (Magnesium Hydroxide) 400 Mg/5 Ml Oral.susp 2,400 Mg PO PRN QHS PRN Nystop (Nystatin) 60 Gm Powder 1 Gisselle TP PRN BID PRN Senna (Sennosides) 8.6 Mg Tablet 17.2 Mg PO BID Surfak (Docusate Calcium) 240 Mg Capsule 240 Mg PO QHS Glimepiride 4 Mg Tablet 4 Mg PO BIDWMEALS Simvastatin 40 Mg Tablet 40 Mg PO QHS Cyclobenzaprine Hcl 10 Mg Tablet 10 Mg PO PRN TID PRN Levothyroxine Sodium 150 Mcg Tablet 150 Mcg PO DAILY07 Tylenol (Acetaminophen) 325 Mg Tablet 650 Mg PO PRN Q6HRS PRN Max Acetaminophen dose is 4000mg in 24 hours from all sources for adults may resume as needed Vitamin D3 (Cholecalciferol (Vitamin D3)) 1,000 Unit Tablet 2,000 Unit PO DAILY Divalproex Sodium 500 Mg Tablet.dr 1,000 Mg PO HS Diagnosis: Problems: (1) Bipolar 1 disorder, manic, moderate (2) Cellulitis (3) Suicidal ideation (4) Diabetic foot ulcer (5) Medical clearance for psychiatric admission (6) Depressed bipolar I disorder (7) Insomnia (8) Diabetes mellitus GEOFF PAREKH MD December 08, 2016 21:01
[2016-12-09] MEDS: traZODone 150 MG TABLET. PO PRN (00:36)
--- NOTE | 2016-12-09 02:45 | PN ---
DATE: 12/07/2016 PSYCHIATRIC PROGRESS NOTE This is a late entry for 12/07/2016, covers elements not covered in my initial note. SUBJECTIVE: Per nursing report, the patient remains somewhat hyperverbal at times, very helpful with others around the unit. She has been journaling somewhat profusely writing, but states she is putting it for a memoir. I addressed this with her. REVIEW OF SYSTEMS: No CV, , pulmonary, eye, ENT system symptoms on review. Reliability poor. MENTAL STATUS EXAM: Reasonably oriented. Speech coherent, abstraction fair, computation impaired, language function intact. Mood and affect somewhat anxious, grandiose at times, but overall better. LABORATORY DATA: Reviewed. Valproic acid level therapeutic at 17. IMPRESSION: Diagnoses mentioned in my initial note. PLAN: Continue Depakote 1000 mg at bedtime, trazodone 150 mg at bedtime, may repeat x 1 for insomnia. Change Risperdal from 0.5 mg at bedtime to 0.25 mg p.m. and bedtime, Prozac, continue 10 mg a day. MAN Frankie PAREKH MD DR: GEOVANY/paresh JOB#: [id number] / [id number]
[2016-12-09] MEDS: ACETAMINOPHEN 325 MG TABLET PO PRN (03:06)
[2016-12-09] MEDS: LEVOTHYROXINE 75 MCG TABLET PO SCH (07:00)
[2016-12-09 07:44] VITALS: BP 133/89
[2016-12-09] MEDS: OXYBUTYNIN CHLORIDE 5 MG TABLET PO SCH ×2 (07:56→21:27)
[2016-12-09] MEDS: PANTOPRAZOLE 40 MG TABLET. PO SCH (07:56)
[2016-12-09] MEDS: GLIMEPIRIDE 2 MG TABLET PO SCH ×2 (07:56→17:24)
[2016-12-09] MEDS: FLUoxetine HCL 10 MG CAPSULE PO SCH (07:56)
[2016-12-09] MEDS: CHOLECALCIFEROL (VITAMIN D3) 1,000 UNIT TABLET PO SCH (07:56)
[2016-12-09] MEDS: NICOTINE 21MG PATCH. TD SCH (07:57)
[2016-12-09] MEDS: SENNOSIDES 8.6 MG TABLET PO SCH ×2 (07:57→21:27)
[2016-12-09] MEDS: NYSTATIN 100,000 UNIT/GM TOPICAL OINTMENT 15GM TUBE. TP SCH ×2 (07:59→21:28)
[2016-12-09] MEDS: risperiDONE 0.25 MG TABLET. PO SCH ×2 (14:12→21:26)
[2016-12-09 15:51] VITALS: BP 101/58
--- NOTE | 2016-12-09 20:21 | PDOC ---
Exam Cory Demential Exam: Cory Note: Please also refer to the separate dictated note~for this date of service dictated separately.~Patient seen individually. Discussed the patient with Nursing staff reviewed the chart.~Reviewed interim history and current functioning. Reviewed vital signs,~Labs/ Radiology~and current medications noted below. Continue current treatment with the changes noted in the dictated addendum note Assessment: Vital Signs: Vital Signs Date Time Temp Pulse Resp B/P (MAP) Pulse Ox O2 Delivery O2 Flow Rate FiO2 12/09/16 15:51 98.2 81 18 101/58 (72) 97 12/03/16 15:36 Room Air I&O Intake and Output 12/09/16 07:00 Intake Total 1440 ml Balance 1440 ml Intake Oral 1440 ml Labs: Laboratory Tests Test 12/09/16 03:03 12/09/16 04:02 12/09/16 07:05 12/09/16 11:29 Glucose (Fingerstick) 60 mg/dL (70-99) L 91 mg/dL (70-99) 88 mg/dL (70-99) 125 mg/dL (70-99) H Test 12/09/16 17:05 12/09/16 19:12 Glucose (Fingerstick) 135 mg/dL (70-99) H 120 mg/dL (70-99) H Current Medications: Meds: Current Medications Sodium Chloride 1,000 ml @ 1,000 mls/hr Q1H IV ; Start 12/02/16 at 20:45; Stop 12/02/16 at 21:44; Status DC Sodium Chloride (Normal Saline Flush) 10 ml QSHIFT PRN IV AFTER MEDS AND BLOOD DRAWS; Start 12/02/16 at 20:30 Dextrose 25 gm 1X ONCE IV ; Start 12/02/16 at 21:30; Stop 12/02/16 at 21:38; Status DC Acetaminophen (Tylenol) 650 mg PRN Q6HRS PRN PO PAIN / TEMP Last administered on 12/09/16t 03:06; Start 12/03/16 at 02:15 Multi-Ingredient Ointment (Analgesic [place]) 1 gisselle PRN QID PRN TP MUSCLE PAIN; Start 12/03/16 at 02:15 Al Hydroxide/Mg Hydroxide (Mylanta Plus Xs) 15 ml PRN AFTMEALHC PRN PO DYSPEPSIA; Start 12/03/16 at 02:15 Magnesium Hydroxide (Milk Of Magnesia) 2,400 mg PRN QHS PRN PO CONSTIPATION; Start 12/03/16 at 02:15 Nicotine (Nicoderm Cq 21mg) 1 patch DAILY TD Last administered on 12/09/16 07: 57; Start 12/03/16 at 09:00 Fluoxetine HCl (Prozac) 10 mg DAILY PO Last administered on 12/09/16 07:56; Start 12/03/16 at 09:00 Trazodone HCl (Desyrel) 150 mg PRN QHS PRN PO INSOMNIA Last administered on 12/09 00:36; Start 12/03/16 at 02:15 Trazodone HCl (Desyrel) 150 mg QHS PO Last administered on 12/08/16 19:38; Start 12/03/16 at 21:00 Divalproex Sodium (Depakote Er) 1,000 mg QHS PO Last administered on 12/08/16 19:38; Start 12/03/16 at 21:00 Vitamin D (Vitamin D3) 2,000 unit DAILY PO Last administered on 12/09/16 07:56 ; Start 12/03/16 at 09:00 Cyclobenzaprine HCl (Flexeril) 10 mg PRN TID PRN PO MUSCLE SPASMS; Start at 02:30 Docusate Calcium (Surfak) 240 mg QHS PO Last administered on 12/08/16 19:39; Start 12/03/16 at 21:00 Glimepiride (Amaryl) 4 mg BIDWMEALS PO Last administered on 12/03/16 08:13; Start 12/03/16 at 08:00; Stop 12/03/16 at 18:04; Status DC Levothyroxine Sodium (Synthroid) 150 mcg DAILY07 PO Last administered on 05:53; Start 12/03/16 at 07:00; Stop 12/03/16 at 18:04; Status DC Magnesium Citrate (Citroma) 296 ml PRN DAILY PRN PO CONSTIPATION; Start at 02:30 Nystatin (Nystop) 1 gisselle PRN BID PRN TP YEAST; Start 12/03/16 at 02:30; Status Cancel Pantoprazole Sodium (Protonix) 40 mg DAILYAC PO Last administered on 12/09/16 07:56; Start 12/03/16 at 07:30 Sennosides (Senna) 17.2 mg BID PO Last administered on 12/09/16 07:57; Start at 09:00 Simvastatin (Zocor) 40 mg QHS PO Last administered on 12/08/16 19:38; Start at 21:00 Oxybutynin Chloride (Ditropan) 5 mg BID PO Last administered on 12/09/16 07:56 ; Start 12/03/16 at 09:00 Glimepiride (Amaryl) 2 mg BIDWMEALS PO Last administered on 12/09/16 17:24; Start 12/04/16 at 08:00 Levothyroxine Sodium (Synthroid) 75 mcg DAILY07 PO Last administered on 05:18; Start 12/04/16 at 07:00 Cetirizine HCl (Zyrtec) 10 mg DAILY PO Last administered on 12/06/16 08:17; Start 12/04/16 at 09:00; Stop 12/06/16 at 09:01; Status DC Risperidone (Risperdal) 0.25 mg HS PO Last administered on 12/04/16 20:06; Start 12/04/16 at 21:00; Stop 12/05/16 at 19:14; Status DC Nystatin (Mycostatin) 1 gisselle BID TP Last administered on 12/09/16 07:59; Start 12/05/16 at 21:00 Risperidone (Risperdal) 0.5 mg QHS PO Last administered on 12/07/16 19:41; Start 12/05/16 at 21:00; Stop 12/07/16 at 20:26; Status DC Risperidone (Risperdal) 0.25 mg 14,21 PO Last administered on 12/09/16 14:12; Start 12/08/16 at 14:00 Risperidone (Risperdal) 0.25 mg HS PO ; Start 12/07/16 at 21:00; Status UNV Active Scripts Active Reported Trazodone Hcl 150 Mg Tablet 150 Mg PO PRN QHS PRN Repeat dose to be administered if Scheduled dose is not effective Trazodone Hcl 150 Mg Tablet 150 Mg PO QHS Prozac (Fluoxetine Hcl) 10 Mg Capsule 10 Mg PO DAILY Pantoprazole Sodium 40 Mg Tablet.dr 40 Mg PO DAILY Oxybutynin Chloride Er (Oxybutynin Chloride) 10 Mg Tab.er.24 10 Mg PO DAILY Phenazopyridine Hcl 100 Mg Tablet 100 Mg PO PRN TID Magnesium Citrate 296 Ml Solution 296 Ml PO PRN DAILY PRN Milk Of Magnesia (Magnesium Hydroxide) 400 Mg/5 Ml Oral.susp 2,400 Mg PO PRN QHS PRN Nystop (Nystatin) 60 Gm Powder 1 Gisselle TP PRN BID PRN Senna (Sennosides) 8.6 Mg Tablet 17.2 Mg PO BID Surfak (Docusate Calcium) 240 Mg Capsule 240 Mg PO QHS Glimepiride 4 Mg Tablet 4 Mg PO BIDWMEALS Simvastatin 40 Mg Tablet 40 Mg PO QHS Cyclobenzaprine Hcl 10 Mg Tablet 10 Mg PO PRN TID PRN Levothyroxine Sodium 150 Mcg Tablet 150 Mcg PO DAILY07 Tylenol (Acetaminophen) 325 Mg Tablet 650 Mg PO PRN Q6HRS PRN Max Acetaminophen dose is 4000mg in 24 hours from all sources for adults may resume as needed Vitamin D3 (Cholecalciferol (Vitamin D3)) 1,000 Unit Tablet 2,000 Unit PO DAILY Divalproex Sodium 500 Mg Tablet.dr 1,000 Mg PO HS Diagnosis: Problems: (1) Bipolar 1 disorder, manic, moderate (2) Cellulitis (3) Suicidal ideation (4) Diabetic foot ulcer (5) Medical clearance for psychiatric admission (6) Depressed bipolar I disorder (7) Insomnia (8) Diabetes mellitus GEOFF PAREKH MD December 09, 2016 20:21
[2016-12-09] MEDS: traZODone 150 MG TABLET. PO SCH (21:26)
[2016-12-09] MEDS: DIVALPROEX ER 500 MG TAB.ER.24H PO SCH (21:26)
[2016-12-09] MEDS: SIMVASTATIN 40 MG TABLET. PO SCH (21:26)
[2016-12-09] MEDS: DOCUSATE CALCIUM 240 MG CAPSULE PO SCH (21:26)
[2016-12-09] MEDS: MAGNESIUM HYDROXIDE 2,400 MG/30 ML ORAL.SUSP. PO PRN (22:46)
[2016-12-10] MEDS: traZODone 150 MG TABLET. PO PRN ×2 (01:54→23:41)
[2016-12-10] MEDS: LEVOTHYROXINE 75 MCG TABLET PO SCH (05:03)
[2016-12-10] MEDS: ACETAMINOPHEN 325 MG TABLET PO PRN (05:10)
[2016-12-10 06:34] VITALS: BP 92/61
[2016-12-10 06:36] LABS: BASO # 0.1 x10^3/uL (0.0-0.2); BASO % 1 % (0-3); EOS # 0.3 x10^3/uL (0.0-0.7); EOS % 3 % (0-3); HEMATOCRIT 37.5 % (36.0-47.0); HEMOGLOBIN 12.4 g/dL (12.0-15.5); LYMPH # 3.6 x10^3/uL (1.0-4.8); LYMPH % 40 % (24-48); MEAN CORPUSCULAR HEMOGLOBIN 30 pg (25-35); MEAN CORPUSCULAR HGB CONC 33 g/dL (31-37); MEAN CORPUSCULAR VOLUME 91 fL (79-100); MONO # 0.7 x10^3/uL (0.0-1.1); MONO % 8 % (0-9); NEUT # 4.2 x10^3uL (1.8-7.7); NEUT % 48 % (31-73); PLATELET COUNT 174 x10^3/uL (140-400); RED BLOOD COUNT 4.14 x10^6/uL (3.50-5.40); RED CELL DISTRIBUTION WIDTH 14.2 % (11.5-14.5); WHITE BLOOD COUNT 8.8 x10^3/uL (4.0-11.0)
[2016-12-10 06:52] LABS: ALBUMIN/GLOBULIN RATIO 0.9 (1.0-1.7); ALK PHOS 54 U/L (46-116); ALT (SGPT) 21 U/L (14-59); ANION GAP 4 (6-14); AST (SGOT) 22 U/L (15-37); BLOOD UREA NITROGEN 20 mg/dL (7-20); BUN/CREATININE RATIO 18 (6-20); CALCIUM 8.9 mg/dL (8.5-10.1); CARBON DIOXIDE 31 mmol/L (21-32); CHLORIDE 108 mmol/L (98-107); CREATININE 1.1 mg/dL (0.6-1.0); GFR 49.8; GLUCOSE 135 mg/dL (70-99); MAGNESIUM 1.9 mg/dL (1.8-2.4); POTASSIUM 4.2 mmol/L (3.5-5.1); SODIUM 143 mmol/L (136-145); TOTAL BILIRUBIN 0.3 mg/dL (0.2-1.0); TOTAL PROTEIN 6.2 g/dL (6.4-8.2); VAL ACID 56 mcg/mL (50-100)
[2016-12-10] MEDS: OXYBUTYNIN CHLORIDE 5 MG TABLET PO SCH ×2 (08:08→18:44)
[2016-12-10] MEDS: FLUoxetine HCL 10 MG CAPSULE PO SCH (08:08)
[2016-12-10] MEDS: CHOLECALCIFEROL (VITAMIN D3) 1,000 UNIT TABLET PO SCH (08:08)
[2016-12-10] MEDS: GLIMEPIRIDE 2 MG TABLET PO SCH ×2 (08:08→16:02)
[2016-12-10] MEDS: PANTOPRAZOLE 40 MG TABLET. PO SCH (08:08)
[2016-12-10] MEDS: NICOTINE 21MG PATCH. TD SCH (08:08)
[2016-12-10] MEDS: SENNOSIDES 8.6 MG TABLET PO SCH ×2 (08:09→18:45)
[2016-12-10] MEDS: NYSTATIN 100,000 UNIT/GM TOPICAL OINTMENT 15GM TUBE. TP SCH ×2 (08:09→20:08)
[2016-12-10] MEDS ORDERED: CYANOCOBALAMIN (VITAMIN B-12) 1,000 MCG/ML VIAL IM ONE (13:30)
[2016-12-10] MEDS: risperiDONE 0.25 MG TABLET. PO SCH (14:20)
[2016-12-10 15:48] VITALS: BP 121/81
[2016-12-10] MEDS: DIVALPROEX ER 500 MG TAB.ER.24H PO SCH (18:43)
[2016-12-10] MEDS: traZODone 150 MG TABLET. PO SCH (18:43)
[2016-12-10] MEDS: DOCUSATE CALCIUM 240 MG CAPSULE PO SCH (18:44)
[2016-12-10] MEDS: SIMVASTATIN 40 MG TABLET. PO SCH (18:45)
[2016-12-10] MEDS: risperiDONE 0.5 MG TABLET. PO SCH (20:09)
--- NOTE | 2016-12-10 20:11 | PDOC ---
Exam Cory Demential Exam: Cory Note: Please also refer to the separate dictated note~for this date of service dictated separately.~Patient seen individually. Discussed the patient with Nursing staff reviewed the chart.~Reviewed interim history and current functioning. Reviewed vital signs,~Labs/ Radiology~and current medications noted below. Continue current treatment with the changes noted in the dictated addendum note Assessment: Vital Signs: Vital Signs Date Time Temp Pulse Resp B/P (MAP) Pulse Ox O2 Delivery O2 Flow Rate FiO2 12/10/16 15:48 97.4 91 16 121/81 (94) 97 I&O Intake and Output 12/10/16 07:00 Intake Total 1200 ml Balance 1200 ml Intake Oral 1200 ml # Bowel Movements 1 Labs: Laboratory Tests Test 12/10/16 06:20 12/10/16 07:10 12/10/16 11:05 12/10/16 16:23 White Blood Count 8.8 x10^3/uL (4.0-11.0) Red Blood Count 4.14 x10^6/uL (3.50-5.40) Hemoglobin 12.4 g/dL (12.0-15.5) Hematocrit 37.5 % (36.0-47.0) Mean Corpuscular Volume 91 fL (79-100) Mean Corpuscular Hemoglobin 30 pg (25-35) Mean Corpuscular Hemoglobin Concent 33 g/dL (31-37) Red Cell Distribution Width 14.2 % (11.5-14.5) Platelet Count 174 x10^3/uL (140-400) Neutrophils (%) (Auto) 48 % (31-73) Lymphocytes (%) (Auto) 40 % (24-48) Monocytes (%) (Auto) 8 % (0-9) Eosinophils (%) (Auto) 3 % (0-3) Basophils (%) (Auto) 1 % (0-3) Neutrophils # (Auto) 4.2 x10^3uL (1.8-7.7) Lymphocytes # (Auto) 3.6 x10^3/uL (1.0-4.8) Monocytes # (Auto) 0.7 x10^3/uL (0.0-1.1) Eosinophils # (Auto) 0.3 x10^3/uL (0.0-0.7) Basophils # (Auto) 0.1 x10^3/uL (0.0-0.2) Sodium Level 143 mmol/L (136-145) Potassium Level 4.2 mmol/L (3.5-5.1) Chloride Level 108 mmol/L (98-107) H Carbon Dioxide Level 31 mmol/L (21-32) Anion Gap 4 (6-14) L Blood Urea Nitrogen 20 mg/dL (7-20) Creatinine 1.1 mg/dL (0.6-1.0) H Estimated GFR (Cockcroft-Gault) 49.8 BUN/Creatinine Ratio 18 (6-20) Glucose Level 135 mg/dL (70-99) H Calcium Level 8.9 mg/dL (8.5-10.1) Magnesium Level 1.9 mg/dL (1.8-2.4) Total Bilirubin 0.3 mg/dL (0.2-1.0) Aspartate Amino Transferase (AST) 22 U/L (15-37) Alanine Aminotransferase (ALT) 21 U/L (14-59) Alkaline Phosphatase 54 U/L (46-116) Total Protein 6.2 g/dL (6.4-8.2) L Albumin 3.0 g/dL (3.4-5.0) L Albumin/Globulin Ratio 0.9 (1.0-1.7) L Valproic Acid Level 56 mcg/mL (50-100) Valproic Acid Last Dose Date 12/09/2016 Valproic Acid Last Dose Time 2100 Glucose (Fingerstick) 136 mg/dL (70-99) H 95 mg/dL (70-99) 95 mg/dL (70-99) Test 12/10/16 19:20 Glucose (Fingerstick) 113 mg/dL (70-99) H Current Medications: Meds: Current Medications Sodium Chloride 1,000 ml @ 1,000 mls/hr Q1H IV ; Start 12/02/16 at 20:45; Stop 12/02/16 at 21:44; Status DC Sodium Chloride (Normal Saline Flush) 10 ml QSHIFT PRN IV AFTER MEDS AND BLOOD DRAWS; Start 12/02/16 at 20:30 Dextrose 25 gm 1X ONCE IV ; Start 12/02/16 at 21:30; Stop 12/02/16 at 21:38; Status DC Acetaminophen (Tylenol) 650 mg PRN Q6HRS PRN PO PAIN / TEMP Last administered on 12/10/16 05:10; Start 12/03/16 at 02:15 Multi-Ingredient Ointment (Analgesic [place]) 1 gisselle PRN QID PRN TP MUSCLE PAIN Last administered on 12/09/16 21:28; Start 12/03/16 at 02:15 Al Hydroxide/Mg Hydroxide (Mylanta Plus Xs) 15 ml PRN AFTMEALHC PRN PO DYSPEPSIA; Start 12/03/16 at 02:15 Magnesium Hydroxide (Milk Of Magnesia) 2,400 mg PRN QHS PRN PO CONSTIPATION Last administered on 12/09/16 22:46; Start 12/03/16 at 02:15 Nicotine (Nicoderm Cq 21mg) 1 patch DAILY TD Last administered on 12/10/16 08: 08; Start 12/03/16 at 09:00 Fluoxetine HCl (Prozac) 10 mg DAILY PO Last administered on 12/10/16 08:08; Start 12/03/16 at 09:00 Trazodone HCl (Desyrel) 150 mg PRN QHS PRN PO INSOMNIA Last administered on 12/10 01:54; Start 12/03/16 at 02:15 Trazodone HCl (Desyrel) 150 mg QHS PO Last administered on 12/10/16 18:43; Start 12/03/16 at 21:00 Divalproex Sodium (Depakote Er) 1,000 mg QHS PO Last administered on 12/10/16 18:43; Start 12/03/16 at 21:00 Vitamin D (Vitamin D3) 2,000 unit DAILY PO Last administered on 12/10/16 08:08 ; Start 12/03/16 at 09:00 Cyclobenzaprine HCl (Flexeril) 10 mg PRN TID PRN PO MUSCLE SPASMS Last administered on 12/10/16 00:44; Start 12/03/16 at 02:30 Docusate Calcium (Surfak) 240 mg QHS PO Last administered on 12/10/16 18:44; Start 12/03/16 at 21:00 Glimepiride (Amaryl) 4 mg BIDWMEALS PO Last administered on 12/03/16 08:13; Start 12/03/16 at 08:00; Stop 12/03/16 at 18:04; Status DC Levothyroxine Sodium (Synthroid) 150 mcg DAILY07 PO Last administered on 05:53; Start 12/03/16 at 07:00; Stop 12/03/16 at 18:04; Status DC Magnesium Citrate (Citroma) 296 ml PRN DAILY PRN PO CONSTIPATION; Start at 02:30 Nystatin (Nystop) 1 gisselle PRN BID PRN TP YEAST; Start 12/03/16 at 02:30; Status Cancel Pantoprazole Sodium (Protonix) 40 mg DAILYAC PO Last administered on 12/10/16 08:08; Start 12/03/16 at 07:30 Sennosides (Senna) 17.2 mg BID PO Last administered on 12/10/16 18:45; Start at 09:00 Simvastatin (Zocor) 40 mg QHS PO Last administered on 12/10/16 18:45; Start at 21:00 Oxybutynin Chloride (Ditropan) 5 mg BID PO Last administered on 12/10/16 18:44 ; Start 12/03/16 at 09:00 Glimepiride (Amaryl) 2 mg BIDWMEALS PO Last administered on 12/10/16 16:02; Start 12/04/16 at 08:00 Levothyroxine Sodium (Synthroid) 75 mcg DAILY07 PO Last administered on 05:03; Start 12/04/16 at 07:00 Cetirizine HCl (Zyrtec) 10 mg DAILY PO Last administered on 12/06/16 08:17; Start 12/04/16 at 09:00; Stop 12/06/16 at 09:01; Status DC Risperidone (Risperdal) 0.25 mg HS PO Last administered on 12/04/16 20:06; Start 12/04/16 at 21:00; Stop 12/05/16 at 19:14; Status DC Nystatin (Mycostatin) 1 gisselle BID TP Last administered on 12/10/16 20:08; Start 12/05/16 at 21:00 Risperidone (Risperdal) 0.5 mg QHS PO Last administered on 12/07/16 19:41; Start 12/05/16 at 21:00; Stop 12/07/16 at 20:26; Status DC Risperidone (Risperdal) 0.25 mg 14,21 PO Last administered on 12/10/16 14:20; Start 12/08/16 at 14:00; Stop 12/10/16 at 18:20; Status DC Risperidone (Risperdal) 0.25 mg HS PO ; Start 12/07/16 at 21:00; Status UNV Cyanocobalamin (Vitamin B-12) 250 mcg DAILY PO ; Start 12/11/16 at 09:00 Cyanocobalamin (Vitamin B-12) 1,000 mcg 1X ONCE IM Last administered on 14:20; Start 12/10/16 at 13:30; Stop 12/10/16 at 13:31; Status DC Risperidone (Risperdal) 0.25 mg DAILY@1400 PO ; Start 12/11/16 at 14:00 Risperidone (Risperdal) 0.5 mg HS PO Last administered on 12/10/16 20:09; Start 12/10/16 at 21:00 Active Scripts Active Reported Trazodone Hcl 150 Mg Tablet 150 Mg PO PRN QHS PRN Repeat dose to be administered if Scheduled dose is not effective Trazodone Hcl 150 Mg Tablet 150 Mg PO QHS Prozac (Fluoxetine Hcl) 10 Mg Capsule 10 Mg PO DAILY Pantoprazole Sodium 40 Mg Tablet.dr 40 Mg PO DAILY Oxybutynin Chloride Er (Oxybutynin Chloride) 10 Mg Tab.er.24 10 Mg PO DAILY Phenazopyridine Hcl 100 Mg Tablet 100 Mg PO PRN TID Magnesium Citrate 296 Ml Solution 296 Ml PO PRN DAILY PRN Milk Of Magnesia (Magnesium Hydroxide) 400 Mg/5 Ml Oral.susp 2,400 Mg PO PRN QHS PRN Nystop (Nystatin) 60 Gm Powder 1 Gisselle TP PRN BID PRN Senna (Sennosides) 8.6 Mg Tablet 17.2 Mg PO BID Surfak (Docusate Calcium) 240 Mg Capsule 240 Mg PO QHS Glimepiride 4 Mg Tablet 4 Mg PO BIDWMEALS Simvastatin 40 Mg Tablet 40 Mg PO QHS Cyclobenzaprine Hcl 10 Mg Tablet 10 Mg PO PRN TID PRN Levothyroxine Sodium 150 Mcg Tablet 150 Mcg PO DAILY07 Tylenol (Acetaminophen) 325 Mg Tablet 650 Mg PO PRN Q6HRS PRN Max Acetaminophen dose is 4000mg in 24 hours from all sources for adults may resume as needed Vitamin D3 (Cholecalciferol (Vitamin D3)) 1,000 Unit Tablet 2,000 Unit PO DAILY Divalproex Sodium 500 Mg Tablet.dr 1,000 Mg PO HS Diagnosis: Problems: (1) Cellulitis (2) Suicidal ideation (3) Diabetic foot ulcer (4) Bipolar 1 disorder, manic, moderate (5) Medical clearance for psychiatric admission (6) Depressed bipolar I disorder (7) Insomnia (8) Diabetes mellitus GEOFF PAREKH MD December 10, 2016 20:11
--- NOTE | 2016-12-11 02:09 | PN ---
DATE: 12/09/2016 PSYCHIATRIC PROGRESS NOTE This is a late entry for 12/09/2016, covers elements not covered in my initial note. SUBJECTIVE: Reportedly, the patient has been attention seeking, somewhat anxious, restless, wanting nursing staff to call the [facility]. She seems to write in her journal quite excessively at times. REVIEW OF SYSTEMS: No CV, , pulmonary, eye, ENT system symptoms on review. MENTAL STATUS EXAM: Reasonably oriented. Speech coherent, less pressured. Abstraction fair, computation impaired, language function intact, attention span short. Mood and affect remain somewhat labile. LABORATORY DATA: Reviewed. IMPRESSION: Unchanged from initial note, bipolar 1 disorder, mixed with psychotic features versus bipolar 1 disorder, manic with history of psychotic features. Rest unchanged. PLAN: Continue psychotropics mentioned in my initial note. May need to increase Risperdal if psychotic symptoms resurface. MAN Frankie PAREKH MD DR: GEOVANY/paresh JOB#: [id number] / [id number]
--- NOTE | 2016-12-11 02:10 | PN ---
DATE: 12/09/2016 This is a late entry for 12/09/2016 covers elements not covered in my initial note. SUBJECTIVE: The patient was staffed at a treatment team meeting with the entire team. She slept 5 hours. Appetite 90%. WBC 12.7. We will defer her to Dr. George. Valproic acid level 70 on the . The patient remains happy, somewhat social, at times fixated on wanting paper and something to write, wanting to change her room, processed this with her. REVIEW OF SYSTEMS: No CV, , pulmonary, eye system symptoms on review. MENTAL STATUS EXAM: Reasonably oriented. Speech coherent, abstraction fair, computation impaired, language function intact. Attention span short. No suicidal or homicidal ideation. We addressed circumstances prompting admission and how to prevent recurrence. LABORATORY DATA: Reviewed. IMPRESSION: Unchanged from initial note. PLAN: Continue psychotropics mentioned in my initial note. Adjust as indicated. MAN Frankie PAREKH MD DR: GEOVANY/paresh JOB#: [id number] / [id number]
[2016-12-11 06:35] VITALS: BP 137/74
[2016-12-11] MEDS: PANTOPRAZOLE 40 MG TABLET. PO SCH (08:04)
[2016-12-11] MEDS: LEVOTHYROXINE 75 MCG TABLET PO SCH (08:04)
[2016-12-11] MEDS: GLIMEPIRIDE 2 MG TABLET PO SCH ×3 (08:04→16:48)
[2016-12-11] MEDS: SENNOSIDES 8.6 MG TABLET PO SCH ×2 (08:05→20:12)
[2016-12-11] MEDS: OXYBUTYNIN CHLORIDE 5 MG TABLET PO SCH ×2 (08:05→20:12)
[2016-12-11] MEDS: FLUoxetine HCL 10 MG CAPSULE PO SCH (08:05)
[2016-12-11] MEDS: CYANOCOBALAMIN (VITAMIN B-12) 250 MCG TABLET PO SCH (09:13)
[2016-12-11] MEDS: CHOLECALCIFEROL (VITAMIN D3) 1,000 UNIT TABLET PO SCH (09:13)
[2016-12-11] MEDS: NYSTATIN 100,000 UNIT/GM TOPICAL OINTMENT 15GM TUBE. TP SCH ×2 (09:15→20:15)
[2016-12-11] MEDS: NICOTINE 21MG PATCH. TD SCH (09:15)
[2016-12-11] MEDS: risperiDONE 0.25 MG TABLET. PO SCH (13:36)
[2016-12-11 16:09] VITALS: BP 118/79
--- NOTE | 2016-12-11 19:07 | PDOC ---
Exam Cory Demential Exam: Cory Note: Please also refer to the separate dictated note~for this date of service dictated separately.~Patient seen individually. Discussed the patient with Nursing staff reviewed the chart.~Reviewed interim history and current functioning. Reviewed vital signs,~Labs/ Radiology~and current medications noted below. Continue current treatment with the changes noted in the dictated addendum note Assessment: Vital Signs: Vital Signs Date Time Temp Pulse Resp B/P (MAP) Pulse Ox O2 Delivery O2 Flow Rate FiO2 12/11/16 16:09 98.2 85 18 118/79 (92) 96 I&O Intake and Output 12/11/16 07:00 Intake Total 1560 ml Balance 1560 ml Intake Oral 1560 ml # Bowel Movements 1 Labs: Laboratory Tests Test 12/10/16 19:20 12/11/16 08:06 12/11/16 11:19 12/11/16 16:35 Glucose (Fingerstick) 113 mg/dL (70-99) H 90 mg/dL (70-99) 109 mg/dL (70-99) H 74 mg/dL (70-99) Current Medications: Meds: Current Medications Sodium Chloride 1,000 ml @ 1,000 mls/hr Q1H IV ; Start 12/02/16 at 20:45; Stop 12/02/16 at 21:44; Status DC Sodium Chloride (Normal Saline Flush) 10 ml QSHIFT PRN IV AFTER MEDS AND BLOOD DRAWS; Start 12/02/16 at 20:30 Dextrose 25 gm 1X ONCE IV ; Start 12/02/16 at 21:30; Stop 12/02/16 at 21:38; Status DC Acetaminophen (Tylenol) 650 mg PRN Q6HRS PRN PO PAIN / TEMP Last administered on 12/10/16 05:10; Start 12/03/16 at 02:15 Multi-Ingredient Ointment (Analgesic [place]) 1 gisselle PRN QID PRN TP MUSCLE PAIN Last administered on 12/09/16 21:28; Start 12/03/16 at 02:15 Al Hydroxide/Mg Hydroxide (Mylanta Plus Xs) 15 ml PRN AFTMEALHC PRN PO DYSPEPSIA; Start 12/03/16 at 02:15 Magnesium Hydroxide (Milk Of Magnesia) 2,400 mg PRN QHS PRN PO CONSTIPATION Last administered on 12/09/16 22:46; Start 12/03/16 at 02:15 Nicotine (Nicoderm Cq 21mg) 1 patch DAILY TD Last administered on 12/11/16 09: 15; Start 12/03/16 at 09:00 Fluoxetine HCl (Prozac) 10 mg DAILY PO Last administered on 12/11/16 08:05; Start 12/03/16 at 09:00 Trazodone HCl (Desyrel) 150 mg PRN QHS PRN PO INSOMNIA Last administered on 12/10 23:41; Start 12/03/16 at 02:15 Trazodone HCl (Desyrel) 150 mg QHS PO Last administered on 12/10/16 18:43; Start 12/03/16 at 21:00 Divalproex Sodium (Depakote Er) 1,000 mg QHS PO Last administered on 12/10/16 18:43; Start 12/03/16 at 21:00; Stop 12/11/16 at 15:49; Status DC Vitamin D (Vitamin D3) 2,000 unit DAILY PO Last administered on 12/11/16 09:13 ; Start 12/03/16 at 09:00 Cyclobenzaprine HCl (Flexeril) 10 mg PRN TID PRN PO MUSCLE SPASMS Last administered on 12/10/16 00:44; Start 12/03/16 at 02:30 Docusate Calcium (Surfak) 240 mg QHS PO Last administered on 12/10/16 18:44; Start 12/03/16 at 21:00 Glimepiride (Amaryl) 4 mg BIDWMEALS PO Last administered on 12/03/16 08:13; Start 12/03/16 at 08:00; Stop 12/03/16 at 18:04; Status DC Levothyroxine Sodium (Synthroid) 150 mcg DAILY07 PO Last administered on 05:53; Start 12/03/16 at 07:00; Stop 12/03/16 at 18:04; Status DC Magnesium Citrate (Citroma) 296 ml PRN DAILY PRN PO CONSTIPATION; Start at 02:30 Nystatin (Nystop) 1 gisselle PRN BID PRN TP YEAST; Start 12/03/16 at 02:30; Status Cancel Pantoprazole Sodium (Protonix) 40 mg DAILYAC PO Last administered on 12/11/16 08:04; Start 12/03/16 at 07:30 Sennosides (Senna) 17.2 mg BID PO Last administered on 12/11/16 08:05; Start at 09:00 Simvastatin (Zocor) 40 mg QHS PO Last administered on 12/10/16 18:45; Start at 21:00 Oxybutynin Chloride (Ditropan) 5 mg BID PO Last administered on 12/11/16 08:05 ; Start 12/03/16 at 09:00 Glimepiride (Amaryl) 2 mg BIDWMEALS PO Last administered on 12/11/16 16:48; Start 12/04/16 at 08:00 Levothyroxine Sodium (Synthroid) 75 mcg DAILY07 PO Last administered on 08:04; Start 12/04/16 at 07:00 Cetirizine HCl (Zyrtec) 10 mg DAILY PO Last administered on 12/06/16 08:17; Start 12/04/16 at 09:00; Stop 12/06/16 at 09:01; Status DC Risperidone (Risperdal) 0.25 mg HS PO Last administered on 12/04/16 20:06; Start 12/04/16 at 21:00; Stop 12/05/16 at 19:14; Status DC Nystatin (Mycostatin) 1 gisselle BID TP Last administered on 12/11/16 09:15; Start 12/05/16 at 21:00 Risperidone (Risperdal) 0.5 mg QHS PO Last administered on 12/07/16 19:41; Start 12/05/16 at 21:00; Stop 12/07/16 at 20:26; Status DC Risperidone (Risperdal) 0.25 mg 14,21 PO Last administered on 12/10/16 14:20; Start 12/08/16 at 14:00; Stop 12/10/16 at 18:20; Status DC Risperidone (Risperdal) 0.25 mg HS PO ; Start 12/07/16 at 21:00; Status UNV Cyanocobalamin (Vitamin B-12) 250 mcg DAILY PO Last administered on 12/11/16 09 :13; Start 12/11/16 at 09:00 Cyanocobalamin (Vitamin B-12) 1,000 mcg 1X ONCE IM Last administered on 14:20; Start 12/10/16 at 13:30; Stop 12/10/16 at 13:31; Status DC Risperidone (Risperdal) 0.25 mg DAILY@1400 PO Last administered on 12/11/16 13: 36; Start 12/11/16 at 14:00 Risperidone (Risperdal) 0.5 mg HS PO Last administered on 12/10/16 20:09; Start 12/10/16 at 21:00 Mirtazapine (Remeron) 7.5 mg QHS PO ; Start 12/11/16 at 21:00 Divalproex Sodium (Depakote Er) 1,000 mg QHS PO ; Start 12/11/16 at 21:00 Divalproex Sodium (Depakote Er) 250 mg HS PO ; Start 12/11/16 at 21:00 Active Scripts Active Reported Trazodone Hcl 150 Mg Tablet 150 Mg PO PRN QHS PRN Repeat dose to be administered if Scheduled dose is not effective Trazodone Hcl 150 Mg Tablet 150 Mg PO QHS Prozac (Fluoxetine Hcl) 10 Mg Capsule 10 Mg PO DAILY Pantoprazole Sodium 40 Mg Tablet.dr 40 Mg PO DAILY Oxybutynin Chloride Er (Oxybutynin Chloride) 10 Mg Tab.er.24 10 Mg PO DAILY Phenazopyridine Hcl 100 Mg Tablet 100 Mg PO PRN TID Magnesium Citrate 296 Ml Solution 296 Ml PO PRN DAILY PRN Milk Of Magnesia (Magnesium Hydroxide) 400 Mg/5 Ml Oral.susp 2,400 Mg PO PRN QHS PRN Nystop (Nystatin) 60 Gm Powder 1 Gisselle TP PRN BID PRN Senna (Sennosides) 8.6 Mg Tablet 17.2 Mg PO BID Surfak (Docusate Calcium) 240 Mg Capsule 240 Mg PO QHS Glimepiride 4 Mg Tablet 4 Mg PO BIDWMEALS Simvastatin 40 Mg Tablet 40 Mg PO QHS Cyclobenzaprine Hcl 10 Mg Tablet 10 Mg PO PRN TID PRN Levothyroxine Sodium 150 Mcg Tablet 150 Mcg PO DAILY07 Tylenol (Acetaminophen) 325 Mg Tablet 650 Mg PO PRN Q6HRS PRN Max Acetaminophen dose is 4000mg in 24 hours from all sources for adults may resume as needed Vitamin D3 (Cholecalciferol (Vitamin D3)) 1,000 Unit Tablet 2,000 Unit PO DAILY Divalproex Sodium 500 Mg Tablet.dr 1,000 Mg PO HS Diagnosis: Problems: (1) Suicidal ideation (2) Bipolar 1 disorder, manic, moderate (3) Depressed bipolar I disorder GEOFF PAREKH MD December 11, 2016 19:07
[2016-12-11] MEDS: DIVALPROEX ER 500 MG TAB.ER.24H PO SCH (20:11)
[2016-12-11] MEDS: DOCUSATE CALCIUM 240 MG CAPSULE PO SCH (20:12)
[2016-12-11] MEDS: risperiDONE 0.5 MG TABLET. PO SCH (20:12)
[2016-12-11] MEDS: DIVALPROEX ER 250 MG TAB.ER.24H. PO SCH (20:12)
[2016-12-11] MEDS: traZODone 150 MG TABLET. PO SCH (20:12)
[2016-12-11] MEDS: SIMVASTATIN 40 MG TABLET. PO SCH (20:12)
[2016-12-11] MEDS: MIRTAZAPINE 7.5 MG TABLET. PO SCH (20:13)
[2016-12-11] MEDS: MAGNESIUM HYDROXIDE 2,400 MG/30 ML ORAL.SUSP. PO PRN (20:15)
[2016-12-12] MEDS: LEVOTHYROXINE 75 MCG TABLET PO SCH (05:55)
[2016-12-12 06:33] VITALS: BP 113/75
[2016-12-12] MEDS: GLIMEPIRIDE 2 MG TABLET PO SCH ×2 (08:35→17:13)
[2016-12-12] MEDS: PANTOPRAZOLE 40 MG TABLET. PO SCH (08:35)
[2016-12-12] MEDS: FLUoxetine HCL 10 MG CAPSULE PO SCH (08:35)
[2016-12-12] MEDS: OXYBUTYNIN CHLORIDE 5 MG TABLET PO SCH ×2 (08:35→19:50)
[2016-12-12] MEDS: SENNOSIDES 8.6 MG TABLET PO SCH ×2 (08:36→19:50)
[2016-12-12] MEDS: CYANOCOBALAMIN (VITAMIN B-12) 250 MCG TABLET PO SCH (08:36)
[2016-12-12] MEDS: CHOLECALCIFEROL (VITAMIN D3) 1,000 UNIT TABLET PO SCH (08:36)
[2016-12-12] MEDS: NICOTINE 21MG PATCH. TD SCH (08:36)
[2016-12-12] MEDS: NYSTATIN 100,000 UNIT/GM TOPICAL OINTMENT 15GM TUBE. TP SCH ×2 (09:00→19:51)
[2016-12-12] MEDS: risperiDONE 0.25 MG TABLET. PO SCH (14:19)
[2016-12-12 15:41] VITALS: BP 107/69
--- NOTE | 2016-12-12 19:45 | PDOC ---
Exam Cory Demential Exam: Cory Note: Please also refer to the separate dictated note~for this date of service dictated separately.~Patient seen individually. Discussed the patient with Nursing staff reviewed the chart.~Reviewed interim history and current functioning. Reviewed vital signs,~Labs/ Radiology~and current medications noted below. Continue current treatment with the changes noted in the dictated addendum note Assessment: Vital Signs: Vital Signs Date Time Temp Pulse Resp B/P (MAP) Pulse Ox O2 Delivery O2 Flow Rate FiO2 12/12/16 15:41 98.5 85 20 107/69 (82) 97 I&O Intake and Output 12/12/16 07:00 Intake Total 1200 ml Balance 1200 ml Intake Oral 1200 ml # Bowel Movements 1 Labs: Laboratory Tests Test 12/12/16 07:13 12/12/16 11:47 12/12/16 16:42 12/12/16 19:20 Glucose (Fingerstick) 69 mg/dL (70-99) L 101 mg/dL (70-99) H 103 mg/dL (70-99) H 167 mg/dL (70-99) H Current Medications: Meds: Current Medications Sodium Chloride 1,000 ml @ 1,000 mls/hr Q1H IV ; Start 12/02/16 at 20:45; Stop 12/02/16 at 21:44; Status DC Sodium Chloride (Normal Saline Flush) 10 ml QSHIFT PRN IV AFTER MEDS AND BLOOD DRAWS; Start 12/02/16 at 20:30 Dextrose 25 gm 1X ONCE IV ; Start 12/02/16 at 21:30; Stop 12/02/16 at 21:38; Status DC Acetaminophen (Tylenol) 650 mg PRN Q6HRS PRN PO PAIN / TEMP Last administered on 12/10/16 05:10; Start 12/03/16 at 02:15 Multi-Ingredient Ointment (Analgesic [place]) 1 gisselle PRN QID PRN TP MUSCLE PAIN Last administered on 12/09/16 21:28; Start 12/03/16 at 02:15 Al Hydroxide/Mg Hydroxide (Mylanta Plus Xs) 15 ml PRN AFTMEALHC PRN PO DYSPEPSIA; Start 12/03/16 at 02:15 Magnesium Hydroxide (Milk Of Magnesia) 2,400 mg PRN QHS PRN PO CONSTIPATION Last administered on 12/11/16 20:15; Start 12/03/16 at 02:15 Nicotine (Nicoderm Cq 21mg) 1 patch DAILY TD Last administered on 12/12/16 08: 36; Start 12/03/16 at 09:00 Fluoxetine HCl (Prozac) 10 mg DAILY PO Last administered on 12/12/16 08:35; Start 12/03/16 at 09:00 Trazodone HCl (Desyrel) 150 mg PRN QHS PRN PO INSOMNIA Last administered on 12/10 23:41; Start 12/03/16 at 02:15 Trazodone HCl (Desyrel) 150 mg QHS PO Last administered on 12/11/16 20:12; Start 12/03/16 at 21:00 Divalproex Sodium (Depakote Er) 1,000 mg QHS PO Last administered on 12/10/16 18:43; Start 12/03/16 at 21:00; Stop 12/11/16 at 15:49; Status DC Vitamin D (Vitamin D3) 2,000 unit DAILY PO Last administered on 12/12/16 08:36 ; Start 12/03/16 at 09:00 Cyclobenzaprine HCl (Flexeril) 10 mg PRN TID PRN PO MUSCLE SPASMS Last administered on 12/10/16 00:44; Start 12/03/16 at 02:30 Docusate Calcium (Surfak) 240 mg QHS PO Last administered on 12/11/16 20:12; Start 12/03/16 at 21:00 Glimepiride (Amaryl) 4 mg BIDWMEALS PO Last administered on 12/03/16 08:13; Start 12/03/16 at 08:00; Stop 12/03/16 at 18:04; Status DC Levothyroxine Sodium (Synthroid) 150 mcg DAILY07 PO Last administered on 05:53; Start 12/03/16 at 07:00; Stop 12/03/16 at 18:04; Status DC Magnesium Citrate (Citroma) 296 ml PRN DAILY PRN PO CONSTIPATION; Start at 02:30 Nystatin (Nystop) 1 gisselle PRN BID PRN TP YEAST; Start 12/03/16 at 02:30; Status Cancel Pantoprazole Sodium (Protonix) 40 mg DAILYAC PO Last administered on 12/12/16 08:35; Start 12/03/16 at 07:30 Sennosides (Senna) 17.2 mg BID PO Last administered on 12/12/16 08:36; Start at 09:00 Simvastatin (Zocor) 40 mg QHS PO Last administered on 12/11/16 20:12; Start at 21:00 Oxybutynin Chloride (Ditropan) 5 mg BID PO Last administered on 12/12/16 08:35 ; Start 12/03/16 at 09:00 Glimepiride (Amaryl) 2 mg BIDWMEALS PO Last administered on 12/12/16 17:13; Start 12/04/16 at 08:00 Levothyroxine Sodium (Synthroid) 75 mcg DAILY07 PO Last administered on 05:55; Start 12/04/16 at 07:00 Cetirizine HCl (Zyrtec) 10 mg DAILY PO Last administered on 12/06/16 08:17; Start 12/04/16 at 09:00; Stop 12/06/16 at 09:01; Status DC Risperidone (Risperdal) 0.25 mg HS PO Last administered on 12/04/16 20:06; Start 12/04/16 at 21:00; Stop 12/05/16 at 19:14; Status DC Nystatin (Mycostatin) 1 gisselle BID TP Last administered on 12/11/16 20:15; Start 12/05/16 at 21:00 Risperidone (Risperdal) 0.5 mg QHS PO Last administered on 12/07/16 19:41; Start 12/05/16 at 21:00; Stop 12/07/16 at 20:26; Status DC Risperidone (Risperdal) 0.25 mg 14,21 PO Last administered on 12/10/16 14:20; Start 12/08/16 at 14:00; Stop 12/10/16 at 18:20; Status DC Risperidone (Risperdal) 0.25 mg HS PO ; Start 12/07/16 at 21:00; Status UNV Cyanocobalamin (Vitamin B-12) 250 mcg DAILY PO Last administered on 12/12/16 08 :36; Start 12/11/16 at 09:00 Cyanocobalamin (Vitamin B-12) 1,000 mcg 1X ONCE IM Last administered on 14:20; Start 12/10/16 at 13:30; Stop 12/10/16 at 13:31; Status DC Risperidone (Risperdal) 0.25 mg DAILY@1400 PO Last administered on 12/12/16 14: 19; Start 12/11/16 at 14:00 Risperidone (Risperdal) 0.5 mg HS PO Last administered on 12/11/16 20:12; Start 12/10/16 at 21:00 Mirtazapine (Remeron) 7.5 mg QHS PO Last administered on 12/11/16 20:13; Start 12/11/16 at 21:00 Divalproex Sodium (Depakote Er) 1,000 mg QHS PO Last administered on 12/11/16 20:11; Start 12/11/16 at 21:00 Divalproex Sodium (Depakote Er) 250 mg HS PO Last administered on 12/11/16 20: 12; Start 12/11/16 at 21:00 Active Scripts Active Reported Trazodone Hcl 150 Mg Tablet 150 Mg PO PRN QHS PRN Repeat dose to be administered if Scheduled dose is not effective Trazodone Hcl 150 Mg Tablet 150 Mg PO QHS Prozac (Fluoxetine Hcl) 10 Mg Capsule 10 Mg PO DAILY Pantoprazole Sodium 40 Mg Tablet.dr 40 Mg PO DAILY Oxybutynin Chloride Er (Oxybutynin Chloride) 10 Mg Tab.er.24 10 Mg PO DAILY Phenazopyridine Hcl 100 Mg Tablet 100 Mg PO PRN TID Magnesium Citrate 296 Ml Solution 296 Ml PO PRN DAILY PRN Milk Of Magnesia (Magnesium Hydroxide) 400 Mg/5 Ml Oral.susp 2,400 Mg PO PRN QHS PRN Nystop (Nystatin) 60 Gm Powder 1 Gisselle TP PRN BID PRN Senna (Sennosides) 8.6 Mg Tablet 17.2 Mg PO BID Surfak (Docusate Calcium) 240 Mg Capsule 240 Mg PO QHS Glimepiride 4 Mg Tablet 4 Mg PO BIDWMEALS Simvastatin 40 Mg Tablet 40 Mg PO QHS Cyclobenzaprine Hcl 10 Mg Tablet 10 Mg PO PRN TID PRN Levothyroxine Sodium 150 Mcg Tablet 150 Mcg PO DAILY07 Tylenol (Acetaminophen) 325 Mg Tablet 650 Mg PO PRN Q6HRS PRN Max Acetaminophen dose is 4000mg in 24 hours from all sources for adults may resume as needed Vitamin D3 (Cholecalciferol (Vitamin D3)) 1,000 Unit Tablet 2,000 Unit PO DAILY Divalproex Sodium 500 Mg Tablet.dr 1,000 Mg PO HS Diagnosis: Problems: (1) Cellulitis (2) Suicidal ideation (3) Diabetic foot ulcer (4) Bipolar 1 disorder, manic, moderate (5) Medical clearance for psychiatric admission (6) Depressed bipolar I disorder (7) Insomnia (8) Diabetes mellitus GEOFF PAREKH MD December 12, 2016 19:45
[2016-12-12] MEDS: DOCUSATE CALCIUM 240 MG CAPSULE PO SCH (19:50)
[2016-12-12] MEDS: SIMVASTATIN 40 MG TABLET. PO SCH (19:50)
[2016-12-12] MEDS: risperiDONE 0.5 MG TABLET. PO SCH (19:50)
[2016-12-12] MEDS: traZODone 150 MG TABLET. PO SCH (19:51)
[2016-12-12] MEDS: DIVALPROEX ER 500 MG TAB.ER.24H PO SCH (19:51)
[2016-12-12] MEDS: DIVALPROEX ER 250 MG TAB.ER.24H. PO SCH (19:51)
[2016-12-12] MEDS: MIRTAZAPINE 7.5 MG TABLET. PO SCH (19:51)
--- NOTE | 2016-12-12 20:25 | PN ---
DATE: 12/10/2016 PSYCHIATRIC PROGRESS NOTE This is late entry of 12/10/2016, covers elements not covered in my initial note. SUBJECTIVE: According to nursing report, the patient has made weird statement, somewhat anxious, attention seeking, needy, obsessive with the bowels, mothering other patients. REVIEW OF SYSTEMS: No CV, , pulmonary, eye, ENT system symptoms on review. She does complain of some constipation. MENTAL STATUS EXAMINATION: Reasonably oriented. Speech is coherent, a little pressured. Abstraction fair, computation impaired, language function intact. Mood and affect intermittently labile, but improved. LABORATORY DATA: Reviewed. IMPRESSION: Unchanged from initial note, bipolar 1 disorder, mixed, rest unchanged. PLAN: Increase Risperdal from 0.25 mg twice a day to 0.25 mg at 1400, 0.5 mg at bedtime. Continue Depakote, trazodone, Prozac, unchanged. Valproic acid level is therapeutic. GEOFF PAREKH MD DR: GEOVANY/paresh JOB#: [id number] / [id number]
--- NOTE | 2016-12-12 20:49 | PN ---
DATE: 12/11/2016 PSYCHIATRIC PROGRESS NOTE This is late entry of 12/11/2016, covers elements not covered in my initial note. SUBJECTIVE: The patient remains somewhat attention seeking, complains of constipation. Slept 2 hours previous night. REVIEW OF SYSTEMS: No CV, , pulmonary, eye system symptoms on review. MENTAL STATUS EXAMINATION: Oriented reasonably. Speech is coherent, a little pressured at times. Abstraction fair, computation impaired, language function intact, attention span short. Mood and affect, lability despite the above is showing some improvement. LABORATORY DATA: Reviewed. IMPRESSION: Unchanged from initial note. PLAN: Start Remeron 7.5 mg p.o. at bedtime, treat the constipation symptomatically, increase Depakote ER from 1000 mg at bedtime to 1250 at bedtime. Check labs level to reach a higher therapeutic level. Adjust further as clinically indicated. MAN Frankie PAREKH MD DR: GEOVANY/paresh JOB#: [id number] / [id number]
[2016-12-13] MEDS: LEVOTHYROXINE 75 MCG TABLET PO SCH (06:21)
[2016-12-13 06:50] VITALS: BP 119/65
[2016-12-13] MEDS: FLUoxetine HCL 10 MG CAPSULE PO SCH (08:28)
[2016-12-13] MEDS: OXYBUTYNIN CHLORIDE 5 MG TABLET PO SCH ×2 (08:28→20:37)
[2016-12-13] MEDS: SENNOSIDES 8.6 MG TABLET PO SCH ×2 (08:28→20:37)
[2016-12-13] MEDS: GLIMEPIRIDE 2 MG TABLET PO SCH (08:28)
[2016-12-13] MEDS: CYANOCOBALAMIN (VITAMIN B-12) 250 MCG TABLET PO SCH (08:28)
[2016-12-13] MEDS: PANTOPRAZOLE 40 MG TABLET. PO SCH (08:28)
[2016-12-13] MEDS: CHOLECALCIFEROL (VITAMIN D3) 1,000 UNIT TABLET PO SCH (08:28)
[2016-12-13] MEDS: NYSTATIN 100,000 UNIT/GM TOPICAL OINTMENT 15GM TUBE. TP SCH ×2 (08:29→20:37)
[2016-12-13] MEDS: NICOTINE 21MG PATCH. TD SCH (08:29)
[2016-12-13] MEDS: risperiDONE 0.25 MG TABLET. PO SCH (13:34)
[2016-12-13 16:06] VITALS: BP 132/84
--- NOTE | 2016-12-13 20:00 | PDOC ---
Exam Cory Demential Exam: Cory Note: Please also refer to the separate dictated note~for this date of service dictated separately.~Patient seen individually. Discussed the patient with Nursing staff reviewed the chart.~Reviewed interim history and current functioning. Reviewed vital signs,~Labs/ Radiology~and current medications noted below. Continue current treatment with the changes noted in the dictated addendum note Assessment: Vital Signs: Vital Signs Date Time Temp Pulse Resp B/P (MAP) Pulse Ox O2 Delivery O2 Flow Rate FiO2 12/13/16 16:06 97.3 84 20 132/84 (100) 99 I&O Intake and Output 12/13/16 07:00 Intake Total 1560 ml Balance 1560 ml Intake Oral 1560 ml Labs: Laboratory Tests Test 12/13/16 07:23 12/13/16 08:30 12/13/16 11:52 12/13/16 16:52 Glucose (Fingerstick) 50 mg/dL (70-99) L 82 mg/dL (70-99) 88 mg/dL (70-99) 71 mg/dL (70-99) Test 12/13/16 19:02 Glucose (Fingerstick) 133 mg/dL (70-99) H Current Medications: Meds: Current Medications Sodium Chloride 1,000 ml @ 1,000 mls/hr Q1H IV ; Start 12/02/16 at 20:45; Stop 12/02/16 at 21:44; Status DC Sodium Chloride (Normal Saline Flush) 10 ml QSHIFT PRN IV AFTER MEDS AND BLOOD DRAWS; Start 12/02/16 at 20:30 Dextrose 25 gm 1X ONCE IV ; Start 12/02/16 at 21:30; Stop 12/02/16 at 21:38; Status DC Acetaminophen (Tylenol) 650 mg PRN Q6HRS PRN PO PAIN / TEMP Last administered on 12/10/16 05:10; Start 12/03/16 at 02:15 Multi-Ingredient Ointment (Analgesic [place]) 1 gisselle PRN QID PRN TP MUSCLE PAIN Last administered on 12/09/16 21:28; Start 12/03/16 at 02:15 Al Hydroxide/Mg Hydroxide (Mylanta Plus Xs) 15 ml PRN AFTMEALHC PRN PO DYSPEPSIA; Start 12/03/16 at 02:15 Magnesium Hydroxide (Milk Of Magnesia) 2,400 mg PRN QHS PRN PO CONSTIPATION Last administered on 12/11/16 20:15; Start 12/03/16 at 02:15 Nicotine (Nicoderm Cq 21mg) 1 patch DAILY TD Last administered on 12/13/16 08: 29; Start 12/03/16 at 09:00 Fluoxetine HCl (Prozac) 10 mg DAILY PO Last administered on 12/13/16 08:28; Start 12/03/16 at 09:00 Trazodone HCl (Desyrel) 150 mg PRN QHS PRN PO INSOMNIA Last administered on 12/10 23:41; Start 12/03/16 at 02:15 Trazodone HCl (Desyrel) 150 mg QHS PO Last administered on 12/12/16 19:51; Start 12/03/16 at 21:00 Divalproex Sodium (Depakote Er) 1,000 mg QHS PO Last administered on 12/10/16 18:43; Start 12/03/16 at 21:00; Stop 12/11/16 at 15:49; Status DC Vitamin D (Vitamin D3) 2,000 unit DAILY PO Last administered on 12/13/16 08:28 ; Start 12/03/16 at 09:00 Cyclobenzaprine HCl (Flexeril) 10 mg PRN TID PRN PO MUSCLE SPASMS Last administered on 12/10/16 00:44; Start 12/03/16 at 02:30 Docusate Calcium (Surfak) 240 mg QHS PO Last administered on 12/12/16 19:50; Start 12/03/16 at 21:00 Glimepiride (Amaryl) 4 mg BIDWMEALS PO Last administered on 12/03/16 08:13; Start 12/03/16 at 08:00; Stop 12/03/16 at 18:04; Status DC Levothyroxine Sodium (Synthroid) 150 mcg DAILY07 PO Last administered on 05:53; Start 12/03/16 at 07:00; Stop 12/03/16 at 18:04; Status DC Magnesium Citrate (Citroma) 296 ml PRN DAILY PRN PO CONSTIPATION; Start at 02:30 Nystatin (Nystop) 1 gisselle PRN BID PRN TP YEAST; Start 12/03/16 at 02:30; Status Cancel Pantoprazole Sodium (Protonix) 40 mg DAILYAC PO Last administered on 12/13/16 08:28; Start 12/03/16 at 07:30 Sennosides (Senna) 17.2 mg BID PO Last administered on 12/13/16 08:28; Start at 09:00 Simvastatin (Zocor) 40 mg QHS PO Last administered on 12/12/16 19:50; Start at 21:00 Oxybutynin Chloride (Ditropan) 5 mg BID PO Last administered on 12/13/16 08:28 ; Start 12/03/16 at 09:00 Glimepiride (Amaryl) 2 mg BIDWMEALS PO Last administered on 12/13/16 08:28; Start 12/04/16 at 08:00; Stop 12/13/16 at 15:55; Status DC Levothyroxine Sodium (Synthroid) 75 mcg DAILY07 PO Last administered on 06:21; Start 12/04/16 at 07:00 Cetirizine HCl (Zyrtec) 10 mg DAILY PO Last administered on 12/06/16 08:17; Start 12/04/16 at 09:00; Stop 12/06/16 at 09:01; Status DC Risperidone (Risperdal) 0.25 mg HS PO Last administered on 12/04/16 20:06; Start 12/04/16 at 21:00; Stop 12/05/16 at 19:14; Status DC Nystatin (Mycostatin) 1 gisselle BID TP Last administered on 12/12/16 19:51; Start 12/05/16 at 21:00 Risperidone (Risperdal) 0.5 mg QHS PO Last administered on 12/07/16 19:41; Start 12/05/16 at 21:00; Stop 12/07/16 at 20:26; Status DC Risperidone (Risperdal) 0.25 mg 14,21 PO Last administered on 12/10/16 14:20; Start 12/08/16 at 14:00; Stop 12/10/16 at 18:20; Status DC Risperidone (Risperdal) 0.25 mg HS PO ; Start 12/07/16 at 21:00; Status UNV Cyanocobalamin (Vitamin B-12) 250 mcg DAILY PO Last administered on 12/13/16 08 :28; Start 12/11/16 at 09:00 Cyanocobalamin (Vitamin B-12) 1,000 mcg 1X ONCE IM Last administered on 14:20; Start 12/10/16 at 13:30; Stop 12/10/16 at 13:31; Status DC Risperidone (Risperdal) 0.25 mg DAILY@1400 PO Last administered on 12/13/16 13: 34; Start 12/11/16 at 14:00 Risperidone (Risperdal) 0.5 mg HS PO Last administered on 12/12/16 19:50; Start 12/10/16 at 21:00 Mirtazapine (Remeron) 7.5 mg QHS PO Last administered on 12/12/16 19:51; Start 12/11/16 at 21:00 Divalproex Sodium (Depakote Er) 1,000 mg QHS PO Last administered on 12/12/16 19:51; Start 12/11/16 at 21:00 Divalproex Sodium (Depakote Er) 250 mg HS PO Last administered on 12/12/16 19: 51; Start 12/11/16 at 21:00 Glimepiride (Amaryl) 2 mg DAILY PO ; Start 12/14/16 at 09:00 Active Scripts Active Reported Trazodone Hcl 150 Mg Tablet 150 Mg PO PRN QHS PRN Repeat dose to be administered if Scheduled dose is not effective Trazodone Hcl 150 Mg Tablet 150 Mg PO QHS Prozac (Fluoxetine Hcl) 10 Mg Capsule 10 Mg PO DAILY Pantoprazole Sodium 40 Mg Tablet.dr 40 Mg PO DAILY Oxybutynin Chloride Er (Oxybutynin Chloride) 10 Mg Tab.er.24 10 Mg PO DAILY Phenazopyridine Hcl 100 Mg Tablet 100 Mg PO PRN TID Magnesium Citrate 296 Ml Solution 296 Ml PO PRN DAILY PRN Milk Of Magnesia (Magnesium Hydroxide) 400 Mg/5 Ml Oral.susp 2,400 Mg PO PRN QHS PRN Nystop (Nystatin) 60 Gm Powder 1 Gisselle TP PRN BID PRN Senna (Sennosides) 8.6 Mg Tablet 17.2 Mg PO BID Surfak (Docusate Calcium) 240 Mg Capsule 240 Mg PO QHS Glimepiride 4 Mg Tablet 4 Mg PO BIDWMEALS Simvastatin 40 Mg Tablet 40 Mg PO QHS Cyclobenzaprine Hcl 10 Mg Tablet 10 Mg PO PRN TID PRN Levothyroxine Sodium 150 Mcg Tablet 150 Mcg PO DAILY07 Tylenol (Acetaminophen) 325 Mg Tablet 650 Mg PO PRN Q6HRS PRN Max Acetaminophen dose is 4000mg in 24 hours from all sources for adults may resume as needed Vitamin D3 (Cholecalciferol (Vitamin D3)) 1,000 Unit Tablet 2,000 Unit PO DAILY Divalproex Sodium 500 Mg Tablet.dr 1,000 Mg PO HS Diagnosis: Problems: (1) Cellulitis (2) Suicidal ideation (3) Diabetic foot ulcer (4) Bipolar 1 disorder, manic, moderate (5) Medical clearance for psychiatric admission (6) Depressed bipolar I disorder (7) Insomnia (8) Diabetes mellitus GEOFF PAREKH MD December 13, 2016 20:00
[2016-12-13] MEDS: DIVALPROEX ER 250 MG TAB.ER.24H. PO SCH (20:36)
[2016-12-13] MEDS: DIVALPROEX ER 500 MG TAB.ER.24H PO SCH (20:36)
[2016-12-13] MEDS: DOCUSATE CALCIUM 240 MG CAPSULE PO SCH (20:36)
[2016-12-13] MEDS: SIMVASTATIN 40 MG TABLET. PO SCH (20:36)
[2016-12-13] MEDS: traZODone 150 MG TABLET. PO SCH (20:37)
[2016-12-13] MEDS: risperiDONE 0.5 MG TABLET. PO SCH (20:37)
[2016-12-13] MEDS: MIRTAZAPINE 7.5 MG TABLET. PO SCH (20:37)
--- NOTE | 2016-12-14 00:34 | PN ---
DATE: 12/12/2016 PSYCHIATRIC PROGRESS NOTE This is a late entry of 12/12/2016, covers elements not covered in my initial note. SUBJECTIVE: The patient was obsessed with her bowel the previous evening had a bowel movement done better during the day on 12/12/2016. REVIEW OF SYSTEMS: No CV, , pulmonary, eye system symptoms on review other than the constipation. MENTAL STATUS EXAM: Reasonably oriented. Speech coherent, abstraction fair, computation impaired. Mood and affect somewhat labile, but improved. We discussed at length circumstances prompting her removal from [facility] way to control her behaviors and behavioral changes to help affect this an outpatient psychiatric followup at the [facility] the [facility]. LABORATORY DATA: Reviewed. IMPRESSION: Bipolar 1 disorder, manic in partial remission. Rest diagnosis unchanged. PLAN: Continue Remeron 7.5 at bedtime, Depakote ER 1250 at bedtime. Check labs level, trazodone 150 at bedtime, may repeat x 1, Prozac 10 mg a day, Risperdal 0.25 mg at 1400.5 at bedtime, Remeron 7.5 at bedtime. MAN Frankie PAREKH MD DR: GEOVANY/paresh JOB#: [id number] / [id number]
[2016-12-14 05:57] VITALS: BP 151/88
[2016-12-14] MEDS: LEVOTHYROXINE 75 MCG TABLET PO SCH (05:57)
[2016-12-14] MEDS: PANTOPRAZOLE 40 MG TABLET. PO SCH (07:31)
[2016-12-14 08:01] LABS: BASO # 0.1 x10^3/uL (0.0-0.2); BASO % 1 % (0-3); EOS # 0.3 x10^3/uL (0.0-0.7); EOS % 4 % (0-3); HEMOGLOBIN 14.2 g/dL (12.0-15.5); LYMPH % 37 % (24-48); MEAN CORPUSCULAR HEMOGLOBIN 30 pg (25-35); MEAN CORPUSCULAR HGB CONC 33 g/dL (31-37); MEAN CORPUSCULAR VOLUME 91 fL (79-100); MONO # 0.8 x10^3/uL (0.0-1.1); MONO % 10 % (0-9); NEUT # 3.8 x10^3uL (1.8-7.7); NEUT % 48 % (31-73); PLATELET COUNT 164 x10^3/uL (140-400); RED BLOOD COUNT 4.74 x10^6/uL (3.50-5.40); RED CELL DISTRIBUTION WIDTH 14.4 % (11.5-14.5); WHITE BLOOD COUNT 7.9 x10^3/uL (4.0-11.0)
[2016-12-14 08:34] LABS: ALBUMIN 3.5 g/dL (3.4-5.0); ALBUMIN/GLOBULIN RATIO 0.9 (1.0-1.7); ALK PHOS 62 U/L (46-116); ALT (SGPT) 21 U/L (14-59); ANION GAP 5 (6-14); AST (SGOT) 21 U/L (15-37); BLOOD UREA NITROGEN 22 mg/dL (7-20); BUN/CREATININE RATIO 22 (6-20); CALCIUM 9.7 mg/dL (8.5-10.1); CARBON DIOXIDE 33 mmol/L (21-32); CHLORIDE 109 mmol/L (98-107); GFR 55.6; GLUCOSE 92 mg/dL (70-99); POTASSIUM 4.9 mmol/L (3.5-5.1); SODIUM 147 mmol/L (136-145); TOTAL BILIRUBIN 0.2 mg/dL (0.2-1.0); TOTAL PROTEIN 7.2 g/dL (6.4-8.2)
[2016-12-14 08:37] LABS: VAL ACID 106 mcg/mL (50-100)
[2016-12-14 08:46] LABS: MAGNESIUM 2.2 mg/dL (1.8-2.4)
[2016-12-14] MEDS: NICOTINE 21MG PATCH. TD SCH (09:05)
[2016-12-14] MEDS: FLUoxetine HCL 10 MG CAPSULE PO SCH (09:06)
[2016-12-14] MEDS: NYSTATIN 100,000 UNIT/GM TOPICAL OINTMENT 15GM TUBE. TP SCH ×2 (09:06→21:00)
[2016-12-14] MEDS: CHOLECALCIFEROL (VITAMIN D3) 1,000 UNIT TABLET PO SCH (09:06)
[2016-12-14] MEDS: CYANOCOBALAMIN (VITAMIN B-12) 250 MCG TABLET PO SCH (09:06)
[2016-12-14] MEDS: OXYBUTYNIN CHLORIDE 5 MG TABLET PO SCH ×2 (09:06→20:02)
[2016-12-14] MEDS: SENNOSIDES 8.6 MG TABLET PO SCH ×2 (09:06→20:01)
[2016-12-14] MEDS: GLIMEPIRIDE 2 MG TABLET PO SCH (09:08)
[2016-12-14] MEDS: risperiDONE 0.25 MG TABLET. PO SCH (13:15)
[2016-12-14 14:44] VITALS: BP 113/76
[2016-12-14] MEDS: SIMVASTATIN 40 MG TABLET. PO SCH (20:00)
[2016-12-14] MEDS: DOCUSATE CALCIUM 240 MG CAPSULE PO SCH (20:00)
[2016-12-14] MEDS: MIRTAZAPINE 7.5 MG TABLET. PO SCH (20:01)
[2016-12-14] MEDS: DIVALPROEX ER 250 MG TAB.ER.24H. PO SCH (20:01)
[2016-12-14] MEDS: DIVALPROEX ER 500 MG TAB.ER.24H PO SCH (20:01)
[2016-12-14] MEDS: risperiDONE 0.5 MG TABLET. PO SCH (20:02)
[2016-12-14] MEDS: traZODone 150 MG TABLET. PO SCH (20:02)
--- NOTE | 2016-12-14 21:00 | PDOC ---
Exam Cory Demential Exam: Cory Note: Please also refer to the separate dictated note~for this date of service dictated separately.~Patient seen individually. Discussed the patient with Nursing staff reviewed the chart.~Reviewed interim history and current functioning. Reviewed vital signs,~Labs/ Radiology~and current medications noted below. Continue current treatment with the changes noted in the dictated addendum note Assessment: Vital Signs: Vital Signs Date Time Temp Pulse Resp B/P (MAP) Pulse Ox O2 Delivery O2 Flow Rate FiO2 12/14/16 14:44 97.2 84 20 113/76 (88) 98 I&O Intake and Output 12/14/16 07:00 Intake Total 1320 ml Balance 1320 ml Intake Oral 1320 ml Labs: Laboratory Tests Test 12/14/16 07:09 12/14/16 07:47 12/14/16 11:14 12/14/16 16:25 Glucose (Fingerstick) 92 mg/dL (70-99) 134 mg/dL (70-99) H 128 mg/dL (70-99) H White Blood Count 7.9 x10^3/uL (4.0-11.0) Red Blood Count 4.74 x10^6/uL (3.50-5.40) Hemoglobin 14.2 g/dL (12.0-15.5) Hematocrit 43.0 % (36.0-47.0) Mean Corpuscular Volume 91 fL (79-100) Mean Corpuscular Hemoglobin 30 pg (25-35) Mean Corpuscular Hemoglobin Concent 33 g/dL (31-37) Red Cell Distribution Width 14.4 % (11.5-14.5) Platelet Count 164 x10^3/uL (140-400) Neutrophils (%) (Auto) 48 % (31-73) Lymphocytes (%) (Auto) 37 % (24-48) Monocytes (%) (Auto) 10 % (0-9) H Eosinophils (%) (Auto) 4 % (0-3) H Basophils (%) (Auto) 1 % (0-3) Neutrophils # (Auto) 3.8 x10^3uL (1.8-7.7) Lymphocytes # (Auto) 3.0 x10^3/uL (1.0-4.8) Monocytes # (Auto) 0.8 x10^3/uL (0.0-1.1) Eosinophils # (Auto) 0.3 x10^3/uL (0.0-0.7) Basophils # (Auto) 0.1 x10^3/uL (0.0-0.2) Sodium Level 147 mmol/L (136-145) H Potassium Level 4.9 mmol/L (3.5-5.1) Chloride Level 109 mmol/L (98-107) H Carbon Dioxide Level 33 mmol/L (21-32) H Anion Gap 5 (6-14) L Blood Urea Nitrogen 22 mg/dL (7-20) H Creatinine 1.0 mg/dL (0.6-1.0) Estimated GFR (Cockcroft-Gault) 55.6 BUN/Creatinine Ratio 22 (6-20) H Glucose Level 92 mg/dL (70-99) Calcium Level 9.7 mg/dL (8.5-10.1) Magnesium Level 2.2 mg/dL (1.8-2.4) Total Bilirubin 0.2 mg/dL (0.2-1.0) Aspartate Amino Transferase (AST) 21 U/L (15-37) Alanine Aminotransferase (ALT) 21 U/L (14-59) Alkaline Phosphatase 62 U/L (46-116) Total Protein 7.2 g/dL (6.4-8.2) Albumin 3.5 g/dL (3.4-5.0) Albumin/Globulin Ratio 0.9 (1.0-1.7) L Valproic Acid Level 106 mcg/mL (50-100) H Valproic Acid Last Dose Date 12/13/2016 Valproic Acid Last Dose Time 2100 Test 12/14/16 19:03 Glucose (Fingerstick) 117 mg/dL (70-99) H Current Medications: Meds: Current Medications Sodium Chloride 1,000 ml @ 1,000 mls/hr Q1H IV ; Start 12/02/16 at 20:45; Stop 12/02/16 at 21:44; Status DC Sodium Chloride (Normal Saline Flush) 10 ml QSHIFT PRN IV AFTER MEDS AND BLOOD DRAWS; Start 12/02/16 at 20:30 Dextrose 25 gm 1X ONCE IV ; Start 12/02/16 at 21:30; Stop 12/02/16 at 21:38; Status DC Acetaminophen (Tylenol) 650 mg PRN Q6HRS PRN PO PAIN / TEMP Last administered on 12/10/16 05:10; Start 12/03/16 at 02:15 Multi-Ingredient Ointment (Analgesic [place]) 1 gisselle PRN QID PRN TP MUSCLE PAIN Last administered on 12/09/16 21:28; Start 12/03/16 at 02:15 Al Hydroxide/Mg Hydroxide (Mylanta Plus Xs) 15 ml PRN AFTMEALHC PRN PO DYSPEPSIA; Start 12/03/16 at 02:15 Magnesium Hydroxide (Milk Of Magnesia) 2,400 mg PRN QHS PRN PO CONSTIPATION Last administered on 12/11/16 20:15; Start 12/03/16 at 02:15 Nicotine (Nicoderm Cq 21mg) 1 patch DAILY TD Last administered on 12/14/16 09: 05; Start 12/03/16 at 09:00 Fluoxetine HCl (Prozac) 10 mg DAILY PO Last administered on 12/14/16 09:06; Start 12/03/16 at 09:00 Trazodone HCl (Desyrel) 150 mg PRN QHS PRN PO INSOMNIA Last administered on 12/10 23:41; Start 12/03/16 at 02:15 Trazodone HCl (Desyrel) 150 mg QHS PO Last administered on 12/14/16 20:02; Start 12/03/16 at 21:00 Divalproex Sodium (Depakote Er) 1,000 mg QHS PO Last administered on 12/10/16 18:43; Start 12/03/16 at 21:00; Stop 12/11/16 at 15:49; Status DC Vitamin D (Vitamin D3) 2,000 unit DAILY PO Last administered on 12/14/16 09:06 ; Start 12/03/16 at 09:00 Cyclobenzaprine HCl (Flexeril) 10 mg PRN TID PRN PO MUSCLE SPASMS Last administered on 12/10/16 00:44; Start 12/03/16 at 02:30 Docusate Calcium (Surfak) 240 mg QHS PO Last administered on 12/14/16 20:00; Start 12/03/16 at 21:00 Glimepiride (Amaryl) 4 mg BIDWMEALS PO Last administered on 12/03/16 08:13; Start 12/03/16 at 08:00; Stop 12/03/16 at 18:04; Status DC Levothyroxine Sodium (Synthroid) 150 mcg DAILY07 PO Last administered on 05:53; Start 12/03/16 at 07:00; Stop 12/03/16 at 18:04; Status DC Magnesium Citrate (Citroma) 296 ml PRN DAILY PRN PO CONSTIPATION Last administered on 12/13/16 20:57; Start 12/03/16 at 02:30 Nystatin (Nystop) 1 gisselle PRN BID PRN TP YEAST; Start 12/03/16 at 02:30; Status Cancel Pantoprazole Sodium (Protonix) 40 mg DAILYAC PO Last administered on 12/14/16 07:31; Start 12/03/16 at 07:30 Sennosides (Senna) 17.2 mg BID PO Last administered on 12/14/16 20:01; Start at 09:00 Simvastatin (Zocor) 40 mg QHS PO Last administered on 12/14/16 20:00; Start at 21:00 Oxybutynin Chloride (Ditropan) 5 mg BID PO Last administered on 12/14/16 20:02 ; Start 12/03/16 at 09:00 Glimepiride (Amaryl) 2 mg BIDWMEALS PO Last administered on 12/13/16 08:28; Start 12/04/16 at 08:00; Stop 12/13/16 at 15:55; Status DC Levothyroxine Sodium (Synthroid) 75 mcg DAILY07 PO Last administered on 05:57; Start 12/04/16 at 07:00 Cetirizine HCl (Zyrtec) 10 mg DAILY PO Last administered on 12/06/16 08:17; Start 12/04/16 at 09:00; Stop 12/06/16 at 09:01; Status DC Risperidone (Risperdal) 0.25 mg HS PO Last administered on 12/04/16 20:06; Start 12/04/16 at 21:00; Stop 12/05/16 at 19:14; Status DC Nystatin (Mycostatin) 1 gisselle BID TP Last administered on 12/14/16 09:06; Start 12/05/16 at 21:00 Risperidone (Risperdal) 0.5 mg QHS PO Last administered on 12/07/16 19:41; Start 12/05/16 at 21:00; Stop 12/07/16 at 20:26; Status DC Risperidone (Risperdal) 0.25 mg 14,21 PO Last administered on 12/10/16 14:20; Start 12/08/16 at 14:00; Stop 12/10/16 at 18:20; Status DC Risperidone (Risperdal) 0.25 mg HS PO ; Start 12/07/16 at 21:00; Status UNV Cyanocobalamin (Vitamin B-12) 250 mcg DAILY PO Last administered on 12/14/16 09 :06; Start 12/11/16 at 09:00 Cyanocobalamin (Vitamin B-12) 1,000 mcg 1X ONCE IM Last administered on 14:20; Start 12/10/16 at 13:30; Stop 12/10/16 at 13:31; Status DC Risperidone (Risperdal) 0.25 mg DAILY@1400 PO Last administered on 12/14/16 13: 15; Start 12/11/16 at 14:00 Risperidone (Risperdal) 0.5 mg HS PO Last administered on 12/14/16 20:02; Start 12/10/16 at 21:00 Mirtazapine (Remeron) 7.5 mg QHS PO Last administered on 12/14/16 20:01; Start 12/11/16 at 21:00 Divalproex Sodium (Depakote Er) 1,000 mg QHS PO Last administered on 12/14/16 20:01; Start 12/11/16 at 21:00 Divalproex Sodium (Depakote Er) 250 mg HS PO Last administered on 12/14/16 20: 01; Start 12/11/16 at 21:00 Glimepiride (Amaryl) 2 mg DAILY PO Last administered on 12/14/16 09:08; Start 12/14/16 at 09:00 Active Scripts Active Reported Trazodone Hcl 150 Mg Tablet 150 Mg PO PRN QHS PRN Repeat dose to be administered if Scheduled dose is not effective Trazodone Hcl 150 Mg Tablet 150 Mg PO QHS Prozac (Fluoxetine Hcl) 10 Mg Capsule 10 Mg PO DAILY Pantoprazole Sodium 40 Mg Tablet.dr 40 Mg PO DAILY Oxybutynin Chloride Er (Oxybutynin Chloride) 10 Mg Tab.er.24 10 Mg PO DAILY Phenazopyridine Hcl 100 Mg Tablet 100 Mg PO PRN TID Magnesium Citrate 296 Ml Solution 296 Ml PO PRN DAILY PRN Milk Of Magnesia (Magnesium Hydroxide) 400 Mg/5 Ml Oral.susp 2,400 Mg PO PRN QHS PRN Nystop (Nystatin) 60 Gm Powder 1 Gisselle TP PRN BID PRN Senna (Sennosides) 8.6 Mg Tablet 17.2 Mg PO BID Surfak (Docusate Calcium) 240 Mg Capsule 240 Mg PO QHS Glimepiride 4 Mg Tablet 4 Mg PO BIDWMEALS Simvastatin 40 Mg Tablet 40 Mg PO QHS Cyclobenzaprine Hcl 10 Mg Tablet 10 Mg PO PRN TID PRN Levothyroxine Sodium 150 Mcg Tablet 150 Mcg PO DAILY07 Tylenol (Acetaminophen) 325 Mg Tablet 650 Mg PO PRN Q6HRS PRN Max Acetaminophen dose is 4000mg in 24 hours from all sources for adults may resume as needed Vitamin D3 (Cholecalciferol (Vitamin D3)) 1,000 Unit Tablet 2,000 Unit PO DAILY Divalproex Sodium 500 Mg Tablet.dr 1,000 Mg PO HS Diagnosis: Problems: (1) Cellulitis (2) Suicidal ideation (3) Diabetic foot ulcer (4) Bipolar 1 disorder, manic, moderate (5) Medical clearance for psychiatric admission (6) Depressed bipolar I disorder (7) Insomnia (8) Diabetes mellitus GEOFF PAREKH MD December 14, 2016 21:00
[2016-12-14] MEDS: traZODone 150 MG TABLET. PO PRN (22:26)
--- NOTE | 2016-12-14 23:56 | PN ---
DATE: 12/13/2016 This is a late entry, covers the elements not covered in my initial note. Overall, the patient has done better, still somewhat anxious, driven, but redirects. No CV, , pulmonary, eye system symptoms on review. MENTAL STATUS EXAM: Reasonably oriented. Speech coherent, abstraction fair, computation impaired, language function intact. Mood and affect, lability is improved. LABORATORY DATA: Reviewed. IMPRESSION: Unchanged from initial note. PLAN: Continue current psychotropics. Valproic acid level is 56 therapeutic. Discussed with social service staff. Transition to a day program at [facility] later this week. MAN Frankie PAREKH MD DR: GEOVANY/paresh JOB#: [id number] / [id number]
[2016-12-15] MEDS ORDERED: CYAN500T17 PO (00:13)
[2016-12-15] MEDS ORDERED: MAG355OR87 PO (00:15)
[2016-12-15] MEDS ORDERED: METH29OI TP (00:16)
[2016-12-15] MEDS ORDERED: NICO1PAT21 TD (00:17)
[2016-12-15] MEDS ORDERED: DIVA250T14 PO (00:50)
[2016-12-15] MEDS ORDERED: MIRT7.5T8 PO (00:52)
[2016-12-15] MEDS ORDERED: RISP0.5T3 PO ×2 (00:54)
[2016-12-15] MEDS: LEVOTHYROXINE 75 MCG TABLET PO SCH (05:39)
[2016-12-15 06:53] VITALS: BP 133/82
[2016-12-15] MEDS: CYANOCOBALAMIN (VITAMIN B-12) 250 MCG TABLET PO SCH (08:09)
[2016-12-15] MEDS: SENNOSIDES 8.6 MG TABLET PO SCH (08:09)
[2016-12-15] MEDS: GLIMEPIRIDE 2 MG TABLET PO SCH (08:09)
[2016-12-15] MEDS: OXYBUTYNIN CHLORIDE 5 MG TABLET PO SCH (08:09)
[2016-12-15] MEDS: PANTOPRAZOLE 40 MG TABLET. PO SCH (08:09)
[2016-12-15] MEDS: FLUoxetine HCL 10 MG CAPSULE PO SCH (08:09)
[2016-12-15] MEDS: CHOLECALCIFEROL (VITAMIN D3) 1,000 UNIT TABLET PO SCH (08:09)
[2016-12-15] MEDS: NYSTATIN 100,000 UNIT/GM TOPICAL OINTMENT 15GM TUBE. TP SCH (08:10)
[2016-12-15] MEDS: NICOTINE 21MG PATCH. TD SCH (08:10)
--- NOTE | 2016-12-16 09:41 | PN ---
DATE: 12/14/2016 PSYCHIATRIC PROGRESS NOTE This is a late entry 12/14/2016, covers that elements not covered in my initial note. SUBJECTIVE: Per nursing report, the patient has been interacting better with peers. Compliant with medications, still somewhat anxious. REVIEW OF SYSTEMS: Positive for some constipation, though she had a bowel movement earlier today on 12/14/2016. No CV, , pulmonary, eye system symptoms on review. MENTAL STATUS EXAM: Reasonably oriented. Speech coherent, abstraction fair, computation impaired. Mood and affect is improved. LABORATORY DATA: Reviewed. IMPRESSION: Unchanged from initial note. PLAN: Continue current psychotropics. Adjust further as clinically indicated. MAN Frankie PAREKH MD DR: GEOVANY/paresh JOB#: [id number] / [id number]
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
== END 2016-12-15 11:24 | disposition home health service (06) | DRG 885 ==
LOC: ER 18:54 → EEVIPCON 12-03 00:44 → GEROPSY 12-03 00:44
PROVIDERS: ADMIT Psychiatry & Neurology Psychiatry; ATTEND Psychiatry & Neurology Psychiatry
DX: F31.64 Bipolar disorder, current episode mixed, severe, with psychotic features (principal); L03.90 Cellulitis, unspecified; E78.5 Hyperlipidemia, unspecified; E11.621 Type 2 diabetes mellitus with foot ulcer; I11.0 Hypertensive heart disease with heart failure; G47.33 Obstructive sleep apnea (adult) (pediatric); G47.00 Insomnia, unspecified; F63.9 Impulse disorder, unspecified; F41.9 Anxiety disorder, unspecified; K21.9 Gastro-esophageal reflux disease without esophagitis; K59.00 Constipation, unspecified; L97.509 Non-pressure chronic ulcer of other part of unspecified foot with unspecified severity; F31.60 Bipolar disorder, current episode mixed, unspecified; E03.9 Hypothyroidism, unspecified; I50.9 Heart failure, unspecified; H91.90 Unspecified hearing loss, unspecified ear; Z82.3 Family history of stroke; Z82.49 Family history of ischemic heart disease and other diseases of the circulatory system; Z86.73 Personal history of transient ischemic attack (TIA), and cerebral infarction without residual deficits; Z83.3 Family history of diabetes mellitus; Z87.19 Personal history of other diseases of the digestive system; Z87.440 Personal history of urinary (tract) infections
CPT/HCPCS: 36415; 80048; 80053; 80061; 80164; 81001; 82306; 82607; 82947; 83036; 83540; 83550; 83735; 84436; 84443; 84480; 84484; 85027; 86592; 86593; 87086; 93005; 99406; G0480; G6038; J3420; 80196; 99285-25

== ENCOUNTER 2016-12-19 03:17 | Emergency (ER) | payer MEDICARE, BC ==
[~2016-12-19] VITALS: Ht 167.6 cm; Wt 88.0 kg
[~2016-12-19 03:17] MED LIST changes: +CYAN500T17 PO; +DIVA250T14 PO; +MAG355OR87 PO; +MIRT7.5T8 PO; +RISP0.5T3 PO
[2016-12-19 04:30] LABS: BASO % 0 % (0-3); EOS # 0.2 x10^3/uL (0.0-0.7); EOS % 3 % (0-3); HEMATOCRIT 39.8 % (36.0-47.0); HEMOGLOBIN 13.1 g/dL (12.0-15.5); LYMPH # 3.4 x10^3/uL (1.0-4.8); LYMPH % 40 % (24-48); MEAN CORPUSCULAR HEMOGLOBIN 30 pg (25-35); MEAN CORPUSCULAR HGB CONC 33 g/dL (31-37); MEAN CORPUSCULAR VOLUME 90 fL (79-100); MONO # 0.9 x10^3/uL (0.0-1.1); MONO % 10 % (0-9); NEUT # 3.9 x10^3uL (1.8-7.7); NEUT % 46 % (31-73); PLATELET COUNT 128 x10^3/uL (140-400); RED CELL DISTRIBUTION WIDTH 14.8 % (11.5-14.5); WHITE BLOOD COUNT 8.4 x10^3/uL (4.0-11.0)
[2016-12-19 04:47] LABS: ALBUMIN 3.5 g/dL (3.4-5.0); CALCIUM 9.3 mg/dL (8.5-10.1); GFR 55.6; POTASSIUM 4.1 mmol/L (3.5-5.1); TOTAL BILIRUBIN 0.3 mg/dL (0.2-1.0); TOTAL PROTEIN 7.1 g/dL (6.4-8.2)
--- NOTE | 2016-12-19 04:56 | PHYS DOC ---
Past History Past Medical History: Anxiety, Bipolar, Bronchitis, Depression, GERD, High Cholesterol, Hypertension, Hypothyroid, Sinusitis Past Surgical History: Appendectomy Smoking: Less than 1pk/day Alcohol Use: None Drug Use: None Adult General Chief Complaint Chief Complaint: MECHANICAL FALL HPI HPI Patient is a 66-year-old female with history significant for COPD, hypertension , diabetes, bipolar affective disorder who presents here today secondary to pain to her lower extremities bilaterally after falling down earlier this morning. Patient was released recently discharged from the hospital secondary to a long admission for bipolar affective disorder with manic type behavior. Patient presents here today reporting that she feels like she is at her baseline from a mental status standpoint. And does not want any psychiatric evaluation. Patient reports that she will refuse admission to the hospital. Patient reports that the only reason she is here for she fell down she just wants to make sure things are okay. Patient's also complaining of bilateral lower some edema which she says she's had for quite a while however she was concerned since the fall and started her little more. Patient denies any fevers shakes chills nausea vomiting diarrhea chest pain or shortness of breath. Patient does complain of some neck pain however she denies any head trauma. Patient's physical exam was significant for tenderness to palpation diffusely throughout her lower extremities. Patient had no point bony tenderness bilaterally. Patient did have tenderness upon touching any part of her lower 70s. Patient did verbalize that she had more pain to her right ankle any more else. Patient did have erythema to her lower extremities however the patient reports that this is not a new thing for her. Ports that she has been taking her medications. Patient's ER workup was remarkable for normal labs and x-ray that did not show any acute fracture. Assessment and plan 1. Fall patient's clinically and hemodynamically stable without any evidence of acute fracture or pathology. 2. Erythema to lower 70s. This is likely secondary to chronic changes. Patient reports that she always has erythema to her lower 70s. Patient was just recently discharged from the hospital after an admission for diabetic cellulitis. Patient reports that the redness that she has currently is somewhat which she's had when she was discharged. #3. Lower extremity edema. Again this seems to be a chronic condition for the patient. Patient is currently on Lasix. Upon reviewing the patient's records this does not seem to be an acute issue for her. Review of Systems Review of Systems Constitutional: Denies fever or chills [] Eyes: Denies change in visual acuity, redness, or eye pain [] HENT: Denies nasal congestion or sore throat [] All other review systems are negative except as documented in the history of present illness portion. Allergies Allergies Allergies Coded Allergies Type Severity Reaction Last Updated Verified No Known Drug Allergies 09/27/16 No Physical Exam Physical Exam Constitutional: Well developed, well nourished, no acute distress, non-toxic appearance. [] HENT: Normocephalic, atraumatic, bilateral external ears normal, oropharynx moist, no oral exudates, nose normal. [] Eyes: PERRLA, EOMI, conjunctiva normal, no discharge. [] Neck: Normal range of motion, no tenderness, supple, no stridor. [] Cardiovascular:Heart rate regular rhythm, Lungs & Thorax: Bilateral breath sounds clear to auscultation [] Abdomen: Bowel sounds normal, soft, no tenderness, no masses, no pulsatile masses. [] Skin: Warm, dry, Back: No tenderness, no CVA tenderness. [] Extremities: No tenderness, no cyanosis, Neurologic: Alert and oriented X 3, normal motor function, normal sensory function, no focal deficits noted. [] Psychologic: Affect normal, judgement normal, mood normal. [] Current Patient Data Vital Signs Vital Signs Date Time Temp Pulse Resp B/P (MAP) Pulse Ox O2 Delivery O2 Flow Rate FiO2 12/19/16 03:19 89 20 100 Room Air Lab Results Laboratory Tests Test 12/19/16 03:57 White Blood Count 8.4 x10^3/uL (4.0-11.0) Red Blood Count 4.40 x10^6/uL (3.50-5.40) Hemoglobin 13.1 g/dL (12.0-15.5) Hematocrit 39.8 % (36.0-47.0) Mean Corpuscular Volume 90 fL (79-100) Mean Corpuscular Hemoglobin 30 pg (25-35) Mean Corpuscular Hemoglobin Concent 33 g/dL (31-37) Red Cell Distribution Width 14.8 % (11.5-14.5) H Platelet Count 128 x10^3/uL (140-400) L Neutrophils (%) (Auto) 46 % (31-73) Lymphocytes (%) (Auto) 40 % (24-48) Monocytes (%) (Auto) 10 % (0-9) H Eosinophils (%) (Auto) 3 % (0-3) Basophils (%) (Auto) 0 % (0-3) Neutrophils # (Auto) 3.9 x10^3uL (1.8-7.7) Lymphocytes # (Auto) 3.4 x10^3/uL (1.0-4.8) Monocytes # (Auto) 0.9 x10^3/uL (0.0-1.1) Eosinophils # (Auto) 0.2 x10^3/uL (0.0-0.7) Basophils # (Auto) 0.0 x10^3/uL (0.0-0.2) Sodium Level 145 mmol/L (136-145) Potassium Level 4.1 mmol/L (3.5-5.1) Chloride Level 110 mmol/L (98-107) H Carbon Dioxide Level 26 mmol/L (21-32) Anion Gap 9 (6-14) Blood Urea Nitrogen 23 mg/dL (7-20) H Creatinine 1.0 mg/dL (0.6-1.0) Estimated GFR (Cockcroft-Gault) 55.6 BUN/Creatinine Ratio 23 (6-20) H Glucose Level 97 mg/dL (70-99) Calcium Level 9.3 mg/dL (8.5-10.1) Total Bilirubin 0.3 mg/dL (0.2-1.0) Aspartate Amino Transferase (AST) 27 U/L (15-37) Alanine Aminotransferase (ALT) 22 U/L (14-59) Alkaline Phosphatase 60 U/L (46-116) Total Protein 7.1 g/dL (6.4-8.2) Albumin 3.5 g/dL (3.4-5.0) Albumin/Globulin Ratio 1.0 (1.0-1.7) EKG EKG [] Radiology/Procedures Radiology/Procedures [] Course & Med Decision Making Course & Med Decision Making Pertinent Labs and Imaging studies reviewed. (See chart for details) [] Dragon Disclaimer Dragon Disclaimer This chart was dictated in whole or in part using Voice Recognition software in a busy, high-work load, and often noisy Emergency Department environment. It may contain unintended and wholly unrecognized errors or omissions. Departure Departure: Impression: Primary Impression: Fall Additional Impressions: Ankle sprain Peripheral edema Disposition: HOME, SELF-CARE Condition: IMPROVED Referrals: LUIS DANIEL SOTO MD (PCP) Patient Instructions: Fall Prevention and Home Safety, Peripheral Edema Problem Qualifiers Primary Impression: Fall Encounter type: initial encounter Qualified Codes: W19.XXXA - Unspecified fall, initial encounter Additional Impressions: Ankle sprain Encounter type: initial encounter Involved ligament of ankle: unspecified ligament Laterality: right Qualified Codes: S93.401A - Sprain of unspecified ligament of right ankle, initial encounter RAS GAUTAM MD December 19, 2016 04:56
[2016-12-19 05:20] VITALS: BP 146/69
--- NOTE | 2016-12-19 07:48 | RAD ---
Examination: 3 views of the right foot History: History of fall, right ankle pain Comparison: None available Findings: The ankle mortise appears intact. There is no obvious acute fracture or dislocation identified. Mild soft tissue swelling identified about the ankle joint. Examination limited due to osseous demineralization. Impression: 1. No acute osseous findings. 2. Mild soft tissue swelling identified about the ankle joint likely soft tissue injury.
== END 2016-12-19 06:00 | disposition home or self-care (01) ==
LOC: ER 03:17
DX: S93.401A Sprain of unspecified ligament of right ankle, initial encounter (principal); M79.605 Pain in left leg; M54.2 Cervicalgia; E03.9 Hypothyroidism, unspecified; E11.9 Type 2 diabetes mellitus without complications; E78.00 Pure hypercholesterolemia, unspecified; K21.9 Gastro-esophageal reflux disease without esophagitis; I10 Essential (primary) hypertension; R60.0 Localized edema; F31.9 Bipolar disorder, unspecified; F17.200 Nicotine dependence, unspecified, uncomplicated; W19.XXXA Unspecified fall, initial encounter; Y93.89 Activity, other specified; Y99.8 Other external cause status; Y92.89 Other specified places as the place of occurrence of the external cause
CPT/HCPCS: 36415; 73610; 80053; 85027; 99285

== ENCOUNTER 2016-12-25 02:37 | Inpatient (IN) | payer MEDICARE, BC ==
[~2016-12-25] VITALS: Ht 167.6 cm; Wt 84.1 kg
[2016-12-25] MEDS ORDERED: LEVO75TA5 PO (02:47)
--- NOTE | 2016-12-25 03:14 | NUR ---
Admit Note: Admit 66 year old female patient of Dr. Bertrand with DX: Bipolar I with Psychotic features. Pt arrived via Police Escort from [place] [facility]. PT alert and oriented x 4, states she is here because she resisted arrest after she called the police and told them she was going to stab herself, Pt then stated "I am not suicidal and I haven't been for many years" Nurse questioned pt about her suicidal statement, Pt stated she only said she was going to stab herself because her family wouldn't believe she was manic unless she was suicidal. Apical pulse 74 and regular with S1 and S2 heart tones noted, respirations even and non-labored, Lungs CTA with diminished bases bilaterally, bowel sounds active x 4 quads, ABD soft and non-tender to palpation, skin w/d with 2-3+ edema noted to BLE, small scab area noted to LLE, area to R foot healed since prior to last admission. Pt refused to be assisted to bed stating she slept in the ER at [facility] and doesn't want to go to bed now. Pt up in w/c in day room without s/s of pain, discomfort or distress noted at this time.
[2016-12-25] MEDS ORDERED: traZODone 150 MG TABLET. PO PRN (03:30)
[2016-12-25 04:25] VITALS: BP 146/79
[2016-12-25] MEDS ORDERED: NYSTATIN TOPICAL POWDER 15GM BOTTLE. TP PRN (06:45)
[2016-12-25] MEDS ORDERED: MAGNESIUM HYDROXIDE 2,400 MG/30 ML ORAL.SUSP. PO PRN (06:45)
[2016-12-25] MEDS ORDERED: MAG HYDROX/AL HYDROX/SIMETH 30 ML ORAL.SUSP PO PRN (06:45)
[2016-12-25] MEDS ORDERED: CYCLOBENZAPRINE 10 MG TABLET. PO PRN (06:45)
[2016-12-25] MEDS ORDERED: MAGNESIUM CITRATE 296 ML SOLUTION. PO PRN (06:45)
[2016-12-25] MEDS ORDERED: METHYL SALICYLATE/MENTHOL TOPICAL OINTMENT 29GM TUBE. TP PRN (06:45)
[2016-12-25] MEDS ORDERED: LEVOTHYROXINE 75 MCG TABLET PO SCH (07:30)
[2016-12-25] MEDS: GLIMEPIRIDE 2 MG TABLET PO SCH (07:45)
[2016-12-25 08:21] LABS: BASO # 0.1 x10^3/uL (0.0-0.2); BASO % 1 % (0-3); EOS # 0.3 x10^3/uL (0.0-0.7); EOS % 3 % (0-3); HEMATOCRIT 40.8 % (36.0-47.0); HEMOGLOBIN 13.5 g/dL (12.0-15.5); LYMPH # 3.6 x10^3/uL (1.0-4.8); LYMPH % 35 % (24-48); MEAN CORPUSCULAR HEMOGLOBIN 30 pg (25-35); MEAN CORPUSCULAR HGB CONC 33 g/dL (31-37); MEAN CORPUSCULAR VOLUME 90 fL (79-100); MONO # 0.7 x10^3/uL (0.0-1.1); MONO % 7 % (0-9); NEUT # 5.5 x10^3uL (1.8-7.7); NEUT % 54 % (31-73); PLATELET COUNT 196 x10^3/uL (140-400); RED BLOOD COUNT 4.53 x10^6/uL (3.50-5.40); RED CELL DISTRIBUTION WIDTH 15.5 % (11.5-14.5); WHITE BLOOD COUNT 10.1 x10^3/uL (4.0-11.0)
[2016-12-25] MEDS: FLUoxetine HCL 10 MG CAPSULE PO SCH (08:26)
[2016-12-25] MEDS: CHOLECALCIFEROL (VITAMIN D3) 1,000 UNIT TABLET PO SCH (08:26)
[2016-12-25] MEDS: OXYBUTYNIN CHLORIDE 5 MG TABLET PO SCH ×2 (08:26→20:11)
[2016-12-25] MEDS: PANTOPRAZOLE 40 MG TABLET. PO SCH (08:26)
[2016-12-25] MEDS: CYANOCOBALAMIN (VITAMIN B-12) 250 MCG TABLET PO SCH (08:26)
[2016-12-25] MEDS: NICOTINE 21MG PATCH. TD SCH (08:27)
[2016-12-25] MEDS: SENNOSIDES 8.6 MG TABLET PO SCH ×2 (08:27→20:11)
[2016-12-25 08:39] LABS: ALBUMIN 3.4 g/dL (3.4-5.0); ALBUMIN/GLOBULIN RATIO 0.9 (1.0-1.7); CALCIUM 9.3 mg/dL (8.5-10.1); CREATININE 1.1 mg/dL (0.6-1.0); GFR 49.8; MAGNESIUM 1.8 mg/dL (1.8-2.4); POTASSIUM 4.3 mmol/L (3.5-5.1); TOTAL BILIRUBIN 0.2 mg/dL (0.2-1.0); TOTAL PROTEIN 7.2 g/dL (6.4-8.2)
[2016-12-25 08:41] LABS: VAL ACID < 3 mcg/mL (50-100)
--- NOTE | 2016-12-25 10:18 | NUR ---
Patient has been provided with Practical Counseling for tobacco cessation. It included a face to face interaction and the following was discussed: Recognizing danger situations, Developing coping skills,Basic cessation information. Will follow for discharge needs and discharge planning.
[2016-12-25 10:41] LABS: THYROID STIM HORMONE (TSH) 6.684 uIU/mL (0.358-3.740)
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
[2016-12-25] MEDS: risperiDONE 0.25 MG TABLET. PO SCH (13:38)
[2016-12-25 14:07] LABS: T3 TOTAL 86 ng/dL (71-180); THYROXINE 6.6 ug/dL (4.5-12.0)
--- NOTE | 2016-12-25 14:51 | NUR ---
Behavior Intervention Response and Plan: BIRP Note: Behavior: Assumed Care of patient, patient located in Patient Room at shift change. Patient exhibited the following behavior Restless, Calm, Anxious. Brief assessment on rounds of vital signs, medication needs, lab studies, and pain. Treatment plan problems . Intervention: Patient assessed and the following interventions initiated safety checks 15 Minute Checks Call bernabe in reach , Head to toe Assessment , Cognitive Assessment. Response: After interactions and interventions patient responded in the following manner, Calm , Compliant ,Restless. Continue to assess behaviors and condition will continue to monitor throughout the shift as needed. Plan: Continue to monitor Master Treatment Plan for patient's progress toward short term goals of Medication Compliance, Improved Mood, usp goals to return to previous living setting vs placement. Continue to assess patient for changes in above assessment. Monitor for medication needs, pain, and safety concerns. Hourly rounding performed to ensure safe environment.
[2016-12-25 16:36] VITALS: BP 129/71
--- NOTE | 2016-12-25 19:20 | ACF ---
Admission Criteria Forms PSYCHIATRIC DISORDERS Clinical Indications for Inpatient Care (Place 'X' for any and all applicable criteria): Ongoing inpatient care may be needed for ANY ONE of the following(1)(2)(3)(4)(6) (7)(8): [X]I. Danger to self or others not manageable at lower level of care. [ ]II. Grave disability (eg, inability to perform self care necessary at lower level of care) [ ]III. Agitation or inappropriate behavior interfering with care for primary condition (eg, attempting to discontinue lines or drains prematurely, unable to cooperate with respiratory care) [ ]IV. Severe disability or disorder indicated by ALL of the following: [ ]a) Severe behavioral health disorder-related symptoms or condition indicated by ANY ONE of the following: [ ]i) Severe problem with cognition, memory, judgment, or impulse control [ ]ii) Severe clinical manifestations (eg, hallucinations, delusions, other acute psychotic symptoms, toño, extreme agitation or anxiety) [ ]b) Patient management at lower level of care is not feasible until acute intervention or modification is initiated. Extended stay beyond goal length of stay for the primary condition may be indicated when ANY ONE of the following is present: (1)(2)(3)(4): [ ]a) Patient is a danger to self or others and not manageable at lower level of care. [ ]b) Behavior crisis management, including physical or chemical restraints, is required and is not available at a lower level of care. [ ]c) Behavioral symptoms (e.g., agitation, somnolence, inappropriate behavior) are present, and are not manageable at a lower level of care. [ ]d) Patient cannot understand follow-up treatment and crisis plan. [ ]e) Provider and supports are not sufficiently available at lower level of care. [ ]f) Patient cannot participate (e.g., verify absence of plan for harm) and is in needed of monitoring. The original [facility] content created by [employer] has been revised. The portions of the content which have been revised are identified through the use of italic text or in bold, and [facility] has neither reviewed nor approved the modified material. All other unmodified content is copyright [facility] [employer]. Please see references footnoted in the original [facility] edition 2016 Admission Criteria Met?: Yes SCAR WASHINGTON December 25, 2016 19:20
[2016-12-25] MEDS: SIMVASTATIN 40 MG TABLET. PO SCH (20:11)
[2016-12-25] MEDS: traZODone 150 MG TABLET. PO SCH (20:11)
[2016-12-25] MEDS: DIVALPROEX ER 500 MG TAB.ER.24H PO SCH (20:11)
[2016-12-25] MEDS: DOCUSATE CALCIUM 240 MG CAPSULE PO SCH (20:11)
[2016-12-25] MEDS: risperiDONE 0.5 MG TABLET. PO SCH (20:11)
[2016-12-25] MEDS: DIVALPROEX ER 250 MG TAB.ER.24H. PO SCH (20:11)
[2016-12-25] MEDS: MIRTAZAPINE 7.5 MG TABLET. PO SCH (20:12)
--- NOTE | 2016-12-25 21:00 | PDOC ---
Exam Cory Demential Exam: Cory Note: Please also refer to the separate dictated note~for this date of service dictated separately.~Patient seen individually. Discussed the patient with Nursing staff reviewed the chart.~Reviewed interim history and current functioning. Reviewed vital signs,~Labs/ Radiology~and current medications noted below. Continue current treatment with the changes noted in the dictated addendum note Assessment: Vital Signs: Vital Signs Date Time Temp Pulse Resp B/P (MAP) Pulse Ox O2 Delivery O2 Flow Rate FiO2 12/25/16 16:36 97.0 72 18 129/71 (90) 98 12/25/16 04:25 Room Air Labs: Laboratory Tests Test 12/25/16 07:00 White Blood Count 10.1 x10^3/uL (4.0-11.0) Red Blood Count 4.53 x10^6/uL (3.50-5.40) Hemoglobin 13.5 g/dL (12.0-15.5) Hematocrit 40.8 % (36.0-47.0) Mean Corpuscular Volume 90 fL (79-100) Mean Corpuscular Hemoglobin 30 pg (25-35) Mean Corpuscular Hemoglobin Concent 33 g/dL (31-37) Red Cell Distribution Width 15.5 % (11.5-14.5) H Platelet Count 196 x10^3/uL (140-400) Neutrophils (%) (Auto) 54 % (31-73) Lymphocytes (%) (Auto) 35 % (24-48) Monocytes (%) (Auto) 7 % (0-9) Eosinophils (%) (Auto) 3 % (0-3) Basophils (%) (Auto) 1 % (0-3) Neutrophils # (Auto) 5.5 x10^3uL (1.8-7.7) Lymphocytes # (Auto) 3.6 x10^3/uL (1.0-4.8) Monocytes # (Auto) 0.7 x10^3/uL (0.0-1.1) Eosinophils # (Auto) 0.3 x10^3/uL (0.0-0.7) Basophils # (Auto) 0.1 x10^3/uL (0.0-0.2) Sodium Level 146 mmol/L (136-145) H Potassium Level 4.3 mmol/L (3.5-5.1) Chloride Level 110 mmol/L (98-107) H Carbon Dioxide Level 26 mmol/L (21-32) Anion Gap 10 (6-14) Blood Urea Nitrogen 17 mg/dL (7-20) Creatinine 1.1 mg/dL (0.6-1.0) H Estimated GFR (Cockcroft-Gault) 49.8 BUN/Creatinine Ratio 15 (6-20) Glucose Level 116 mg/dL (70-99) H Calcium Level 9.3 mg/dL (8.5-10.1) Magnesium Level 1.8 mg/dL (1.8-2.4) Total Bilirubin 0.2 mg/dL (0.2-1.0) Aspartate Amino Transferase (AST) 26 U/L (15-37) Alanine Aminotransferase (ALT) 19 U/L (14-59) Alkaline Phosphatase 70 U/L (46-116) OV-Khm-X-Type Natriuretic Peptide 322 pg/mL (0-124) H Total Protein 7.2 g/dL (6.4-8.2) Albumin 3.4 g/dL (3.4-5.0) Albumin/Globulin Ratio 0.9 (1.0-1.7) L Triglycerides Level 108 mg/dL (0-150) Cholesterol Level 166 mg/dL (0-200) LDL Cholesterol, Calculated 96 mg/dL (0-100) VLDL Cholesterol, Calculated 21 mg/dL (0-40) Non-HDL Cholesterol Calculated 117 mg/dL (0-129) HDL Cholesterol 49 mg/dL (40-60) Cholesterol/HDL Ratio 3.0 25-Hydroxy Vitamin D Total Pending Thyroid Stimulating Hormone (TSH) 6.684 uIU/mL (0.358-3.740) Thyroxine (T4) 6.6 ug/dL (4.5-12.0) Total Triiodothyronine (TT3) 86 ng/dL (71-180) Valproic Acid Level < 3 mcg/mL (50-100) L Valproic Acid Last Dose Date 12/24/16 Valproic Acid Last Dose Time 2100 RPR Titer Additional Testing Pending Current Medications: Meds: Current Medications Divalproex Sodium (Depakote Er) 250 mg HS PO ; Start 12/25/16 at 21:00 Fluoxetine HCl (PROzac) 10 mg DAILY PO Last administered on 12/25/16 08:26; Start 12/25/16 at 09:00 Mirtazapine (Remeron) 7.5 mg HS PO ; Start 12/25/16 at 21:00 Nicotine (Nicoderm Cq 21mg) 1 patch DAILY TD Last administered on 12/25/16 08: 27; Start 12/25/16 at 09:00 Risperidone (RisperDAL) 0.25 mg AFTRNOON PO Last administered on 12/25/16 13: 38; Start 12/25/16 at 14:00 Risperidone (RisperDAL) 0.5 mg HS PO ; Start 12/25/16 at 21:00 Trazodone HCl (Desyrel) 150 mg PRN QHS PRN PO INSOMNIA; Start 12/25/16 at 03:30 Trazodone HCl (Desyrel) 150 mg QHS PO ; Start 12/25/16 at 21:00 Divalproex Sodium (Depakote Er) 1,000 mg HS PO ; Start 12/25/16 at 21:00 Acetaminophen (Tylenol) 650 mg PRN Q6HRS PRN PO PAIN / TEMP; Start 12/25/16 at 06:45 Vitamin D (Vitamin D3) 2,000 unit DAILY PO Last administered on 12/25/16 08:26 ; Start 12/25/16 at 09:00 Cyclobenzaprine HCl (Flexeril) 10 mg PRN TID PRN PO MUSCLE SPASMS; Start at 06:45 Docusate Calcium (Surfak) 240 mg QHS PO ; Start 12/25/16 at 21:00 Glimepiride (Amaryl) 2 mg DAILYWBKFT PO Last administered on 12/25/16 07:45; Start 12/25/16 at 08:00 Levothyroxine Sodium (Synthroid) 75 mcg DAILY06 PO Last administered on 07:45; Start 12/25/16 at 07:30; Stop 12/25/16 at 11:32; Status DC Al Hydroxide/Mg Hydroxide (Mylanta Plus Xs) 15 ml PRN AFTMEALHC PRN PO DYSPEPSIA; Start 12/25/16 at 06:45 Magnesium Citrate (Citroma) 296 ml PRN DAILY PRN PO CONSTIPATION; Start at 06:45 Magnesium Hydroxide (Milk Of Magnesia) 2,400 mg PRN QHS PRN PO CONSTIPATION; Start 12/25/16 at 06:45 Multi-Ingredient Ointment (Analgesic [place]) 1 gisselle PRN QID PRN TP MUSCLE PAIN; Start 12/25/16 at 06:45 Nystatin (Nystop) 1 gisselle PRN BID PRN TP YEAST; Start 12/25/16 at 06:45 Pantoprazole Sodium (Protonix) 40 mg DAILY PO Last administered on 12/25/16 08 :26; Start 12/25/16 at 09:00 Sennosides (Senna) 17.2 mg BID PO Last administered on 12/25/16 08:27; Start 12/25/16 at 09:00 Simvastatin (Zocor) 40 mg QHS PO ; Start 12/25/16 at 21:00 Cyanocobalamin (Vitamin B-12) 250 mcg DAILY PO Last administered on 12/25/16 08:26; Start 12/25/16 at 09:00 Oxybutynin Chloride (Ditropan) 5 mg BID PO Last administered on 12/25/16 08:26 ; Start 12/25/16 at 09:00 Levothyroxine Sodium (Synthroid) 88 mcg DAILY06 PO ; Start 12/26/16 at 06:00 Active Scripts Active Reported Levothyroxine Sodium 75 Mcg Tablet 75 Mcg PO DAILY06 Risperidone 0.5 Mg Tablet 0.5 Mg PO HS Risperidone 0.5 Mg Tablet 0.25 Mg PO [id number] Mirtazapine 7.5 Mg Tablet 7.5 Mg PO HS Divalproex Sodium Er (Divalproex Sodium) 250 Mg Tab.er.24h 250 Mg PO HS Take with 1000mg dosage for a total dose of 1250mg. Give with food. DO NOT CRUSH OR CHEW! NICODERM CQ 21mg (Nicotine) 1 Each Patch.td24 1 Patch TD DAILY Analgesic [place] (Methyl Salicylate/Menthol) 29 Gm Oint...g. 1 Gisselle TP PRN QID PRN Antacid Maximum Strength Liq (Mag Hydrox/Al Hydrox/Simeth) 355 Ml Oral.susp 15 Ml PO PRN AFTMEALHC PRN B-12 (Cyanocobalamin (Vitamin B-12)) 500 Mcg Tablet 250 Mcg PO DAILY PRN Trazodone Hcl 150 Mg Tablet 150 Mg PO PRN QHS PRN Repeat dose to be administered if Scheduled dose is not effective Trazodone Hcl 150 Mg Tablet 150 Mg PO QHS May repeat dosage x1 if first dose ineffective. Prozac (Fluoxetine Hcl) 10 Mg Capsule 10 Mg PO DAILY Pantoprazole Sodium 40 Mg Tablet.dr 40 Mg PO DAILY Oxybutynin Chloride Er (Oxybutynin Chloride) 10 Mg Tab.er.24 5 Mg PO BID Magnesium Citrate 296 Ml Solution 296 Ml PO PRN DAILY PRN Milk Of Magnesia (Magnesium Hydroxide) 400 Mg/5 Ml Oral.susp 2,400 Mg PO PRN QHS PRN Nystop (Nystatin) 60 Gm Powder 1 Gisselle TP PRN BID PRN Senna (Sennosides) 8.6 Mg Tablet 17.2 Mg PO BID Surfak (Docusate Calcium) 240 Mg Capsule 240 Mg PO QHS Glimepiride 4 Mg Tablet 2 Mg PO DAILY Simvastatin 40 Mg Tablet 40 Mg PO QHS Cyclobenzaprine Hcl 10 Mg Tablet 10 Mg PO PRN TID PRN Tylenol (Acetaminophen) 325 Mg Tablet 650 Mg PO PRN Q6HRS PRN Max Acetaminophen dose is 4000mg in 24 hours from all sources for adults may resume as needed Vitamin D3 (Cholecalciferol (Vitamin D3)) 1,000 Unit Tablet 2,000 Unit PO DAILY Divalproex Sodium 500 Mg Tablet.dr 1,000 Mg PO HS Total dose is 1250mg Give with food. DO NOT CRUSH OR CHEW! Diagnosis: Problems: (1) Suicidal ideation (2) Bipolar 1 disorder, manic, moderate (3) Depressed bipolar I disorder GEOFF PAREKH MD December 25, 2016 21:00
--- NOTE | 2016-12-25 22:53 | NUR ---
Behavior Intervention Response and Plan: [facility] Note: Behavior: Assumed Care of patient, patient located in Day Room at shift change. Patient exhibited the following behavior Calm, Compliant, Cooperative. Brief assessment on rounds of vital signs, medication needs, lab studies, and pain. Treatment plan problems Danger to Self and Fall Risk. Intervention: Patient assessed and the following interventions initiated safety checks Cognitive Assessment , Head to toe Assessment , Medications. Response: After interactions and interventions patient responded in the following manner, Calm , Compliant ,Cooperative. Continue to assess behaviors and condition will continue to monitor throughout the shift as needed. 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 Continue to assess patient for changes in above assessment. Monitor for medication needs, pain, and safety concerns. Hourly rounding performed to ensure safe environment. Addendum: 12/27/16 at 0123 by BABATUNDE PETIT RN RN Document date and time is for 12/27/16 at 0100; not 12/26/16 at 0100.
[2016-12-26 00:11] LABS: HEMOGLOBIN A1C 5.6 % (4.8-5.6)
--- NOTE | 2016-12-26 01:00 | NUR ---
Nursing Note: Patient had large BM s/p MOM administration. Patient stated she had some generalized aches and pain due to neuropathy 10/15 and request Tylenol. Tylenol administered as ordered. Upon reassessment, patient noted to be resting quietly in bed. No s/s discomfort noted. Will follow. Addendum: 12/27/16 at 0115 by BABATUNDE PETIT RN RN Nursing note: New order for Risperdal 0.5 mg BID noted; non-administered as patient had already received Risperdal 0.5 mg at 2100.
[2016-12-26] MEDS: LEVOTHYROXINE 88 MCG TABLET PO SCH (05:40)
[2016-12-26] MEDS: ACETAMINOPHEN 325 MG TABLET PO PRN ×2 (05:46→22:56)
[2016-12-26 06:57] VITALS: BP 135/80
[2016-12-26] MEDS: OXYBUTYNIN CHLORIDE 5 MG TABLET PO SCH ×2 (08:26→19:18)
[2016-12-26] MEDS: GLIMEPIRIDE 2 MG TABLET PO SCH (08:26)
[2016-12-26] MEDS: CYANOCOBALAMIN (VITAMIN B-12) 250 MCG TABLET PO SCH (08:26)
[2016-12-26] MEDS: PANTOPRAZOLE 40 MG TABLET. PO SCH (08:26)
[2016-12-26] MEDS: SENNOSIDES 8.6 MG TABLET PO SCH ×2 (08:27→19:17)
[2016-12-26] MEDS: FLUoxetine HCL 10 MG CAPSULE PO SCH (08:27)
[2016-12-26] MEDS: NICOTINE 21MG PATCH. TD SCH (08:27)
[2016-12-26] MEDS: CHOLECALCIFEROL (VITAMIN D3) 1,000 UNIT TABLET PO SCH (08:27)
--- NOTE | 2016-12-26 10:26 | NUR ---
Behavior Intervention Response and Plan: BIRP Note: Behavior: Assumed Care of patient, patient located in Dining Room at shift change. Patient exhibited the following behavior Anxious, Compulsive, Compliant. Brief assessment on rounds of vital signs, medication needs, lab studies, and pain. Treatment plan problems . Intervention: Patient assessed and the following interventions initiated safety checks 15 Minute Checks Cognitive Assessment , Head to toe Assessment , Medications. Response: After interactions and interventions patient responded in the following manner, Calm , Compliant ,Cooperative. Continue to assess behaviors and condition will continue to monitor throughout the shift as needed. 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 Continue to assess patient for changes in above assessment. Monitor for medication needs, pain, and safety concerns. Hourly rounding performed to ensure safe environment.
[2016-12-26] MEDS: risperiDONE 0.25 MG TABLET. PO SCH (12:13)
[2016-12-26 16:16] VITALS: BP 133/75
[2016-12-26] MEDS: DIVALPROEX ER 250 MG TAB.ER.24H. PO SCH (19:17)
[2016-12-26] MEDS: MIRTAZAPINE 7.5 MG TABLET. PO SCH (19:17)
[2016-12-26] MEDS: risperiDONE 0.5 MG TABLET. PO SCH ×2 (19:17→21:00)
[2016-12-26] MEDS: traZODone 150 MG TABLET. PO SCH (19:17)
[2016-12-26] MEDS: DIVALPROEX ER 500 MG TAB.ER.24H PO SCH (19:18)
[2016-12-26] MEDS: DOCUSATE CALCIUM 240 MG CAPSULE PO SCH (19:18)
[2016-12-26] MEDS: SIMVASTATIN 40 MG TABLET. PO SCH (19:18)
--- NOTE | 2016-12-26 19:49 | PDOC ---
Exam Cory Demential Exam: Cory Note: Please also refer to the separate dictated note~for this date of service dictated separately.~Patient seen individually. Discussed the patient with Nursing staff reviewed the chart.~Reviewed interim history and current functioning. Reviewed vital signs,~Labs/ Radiology~and current medications noted below. Continue current treatment with the changes noted in the dictated addendum note Assessment: Vital Signs: Vital Signs Date Time Temp Pulse Resp B/P (MAP) Pulse Ox O2 Delivery O2 Flow Rate FiO2 12/26/16 16:16 98.3 76 18 133/75 (94) 98 12/25/16 04:25 Room Air I&O Intake and Output 12/26/16 07:00 Intake Total 1140 ml Balance 1140 ml Intake Oral 1140 ml # Bowel Movements 1 Labs: Laboratory Tests Test 12/26/16 07:55 Glucose (Fingerstick) 104 mg/dL (70-99) H Current Medications: Meds: Current Medications Divalproex Sodium (Depakote Er) 250 mg HS PO Last administered on 12/26/16 19: 17; Start 12/25/16 at 21:00 Fluoxetine HCl (PROzac) 10 mg DAILY PO Last administered on 12/26/16 08:27; Start 12/25/16 at 09:00 Mirtazapine (Remeron) 7.5 mg HS PO Last administered on 12/26/16 19:17; Start 12/25/16 at 21:00 Nicotine (Nicoderm Cq 21mg) 1 patch DAILY TD Last administered on 12/26/16 08: 27; Start 12/25/16 at 09:00 Risperidone (RisperDAL) 0.25 mg AFTRNOON PO Last administered on 12/26/16 12: 13; Start 12/25/16 at 14:00 Risperidone (RisperDAL) 0.5 mg HS PO Last administered on 12/26/16 19:17; Start 12/25/16 at 21:00 Trazodone HCl (Desyrel) 150 mg PRN QHS PRN PO INSOMNIA; Start 12/25/16 at 03:30 Trazodone HCl (Desyrel) 150 mg QHS PO Last administered on 12/26/16 19:17; Start 12/25/16 at 21:00 Divalproex Sodium (Depakote Er) 1,000 mg HS PO Last administered on 12/26/16 19:18; Start 12/25/16 at 21:00 Acetaminophen (Tylenol) 650 mg PRN Q6HRS PRN PO PAIN / TEMP Last administered on 12/26/16 05:46; Start 12/25/16 at 06:45 Vitamin D (Vitamin D3) 2,000 unit DAILY PO Last administered on 12/26/16 08:27 ; Start 12/25/16 at 09:00 Cyclobenzaprine HCl (Flexeril) 10 mg PRN TID PRN PO MUSCLE SPASMS; Start at 06:45 Docusate Calcium (Surfak) 240 mg QHS PO Last administered on 12/26/16 19:18; Start 12/25/16 at 21:00 Glimepiride (Amaryl) 2 mg DAILYWBKFT PO Last administered on 12/26/16 08:26; Start 12/25/16 at 08:00 Levothyroxine Sodium (Synthroid) 75 mcg DAILY06 PO Last administered on 07:45; Start 12/25/16 at 07:30; Stop 12/25/16 at 11:32; Status DC Al Hydroxide/Mg Hydroxide (Mylanta Plus Xs) 15 ml PRN AFTMEALHC PRN PO DYSPEPSIA; Start 12/25/16 at 06:45 Magnesium Citrate (Citroma) 296 ml PRN DAILY PRN PO CONSTIPATION; Start at 06:45 Magnesium Hydroxide (Milk Of Magnesia) 2,400 mg PRN QHS PRN PO CONSTIPATION Last administered on 12/26/16 19:35; Start 12/25/16 at 06:45 Multi-Ingredient Ointment (Analgesic [place]) 1 gisselle PRN QID PRN TP MUSCLE PAIN; Start 12/25/16 at 06:45 Nystatin (Nystop) 1 gisselle PRN BID PRN TP YEAST; Start 12/25/16 at 06:45 Pantoprazole Sodium (Protonix) 40 mg DAILY PO Last administered on 12/26/16 08 :26; Start 12/25/16 at 09:00 Sennosides (Senna) 17.2 mg BID PO Last administered on 12/26/16 19:17; Start 12/25/16 at 09:00 Simvastatin (Zocor) 40 mg QHS PO Last administered on 12/26/16 19:18; Start at 21:00 Cyanocobalamin (Vitamin B-12) 250 mcg DAILY PO Last administered on 12/26/16 08:26; Start 12/25/16 at 09:00 Oxybutynin Chloride (Ditropan) 5 mg BID PO Last administered on 12/26/16 19:18 ; Start 12/25/16 at 09:00 Levothyroxine Sodium (Synthroid) 88 mcg DAILY06 PO Last administered on 05:40; Start 12/26/16 at 06:00 Active Scripts Active Reported Levothyroxine Sodium 75 Mcg Tablet 75 Mcg PO DAILY06 Risperidone 0.5 Mg Tablet 0.5 Mg PO HS Risperidone 0.5 Mg Tablet 0.25 Mg PO [id number] Mirtazapine 7.5 Mg Tablet 7.5 Mg PO HS Divalproex Sodium Er (Divalproex Sodium) 250 Mg Tab.er.24h 250 Mg PO HS Take with 1000mg dosage for a total dose of 1250mg. Give with food. DO NOT CRUSH OR CHEW! NICODERM CQ 21mg (Nicotine) 1 Each Patch.td24 1 Patch TD DAILY Analgesic [place] (Methyl Salicylate/Menthol) 29 Gm Oint...g. 1 Gisselle TP PRN QID PRN Antacid Maximum Strength Liq (Mag Hydrox/Al Hydrox/Simeth) 355 Ml Oral.susp 15 Ml PO PRN AFTMEALHC PRN B-12 (Cyanocobalamin (Vitamin B-12)) 500 Mcg Tablet 250 Mcg PO DAILY PRN Trazodone Hcl 150 Mg Tablet 150 Mg PO PRN QHS PRN Repeat dose to be administered if Scheduled dose is not effective Trazodone Hcl 150 Mg Tablet 150 Mg PO QHS May repeat dosage x1 if first dose ineffective. Prozac (Fluoxetine Hcl) 10 Mg Capsule 10 Mg PO DAILY Pantoprazole Sodium 40 Mg Tablet.dr 40 Mg PO DAILY Oxybutynin Chloride Er (Oxybutynin Chloride) 10 Mg Tab.er.24 5 Mg PO BID Magnesium Citrate 296 Ml Solution 296 Ml PO PRN DAILY PRN Milk Of Magnesia (Magnesium Hydroxide) 400 Mg/5 Ml Oral.susp 2,400 Mg PO PRN QHS PRN Nystop (Nystatin) 60 Gm Powder 1 Gisselle TP PRN BID PRN Senna (Sennosides) 8.6 Mg Tablet 17.2 Mg PO BID Surfak (Docusate Calcium) 240 Mg Capsule 240 Mg PO QHS Glimepiride 4 Mg Tablet 2 Mg PO DAILY Simvastatin 40 Mg Tablet 40 Mg PO QHS Cyclobenzaprine Hcl 10 Mg Tablet 10 Mg PO PRN TID PRN Tylenol (Acetaminophen) 325 Mg Tablet 650 Mg PO PRN Q6HRS PRN Max Acetaminophen dose is 4000mg in 24 hours from all sources for adults may resume as needed Vitamin D3 (Cholecalciferol (Vitamin D3)) 1,000 Unit Tablet 2,000 Unit PO DAILY Divalproex Sodium 500 Mg Tablet.dr 1,000 Mg PO HS Total dose is 1250mg Give with food. DO NOT CRUSH OR CHEW! GEOFF PAREKH MD December 26, 2016 19:49
--- NOTE | 2016-12-26 20:10 | NUR ---
Behavior Intervention Response and Plan: BIRP Note: Behavior: Assumed Care of patient, patient located in Patient Room at shift change. Patient exhibited the following behavior Calm, Compliant, Cooperative. Brief assessment on rounds of vital signs, medication needs, lab studies, and pain. Treatment plan problems Danger to Self and Fall Risk. Intervention: Patient assessed and the following interventions initiated safety checks Cognitive Assessment , Head to toe Assessment , Medications. Response: After interactions and interventions patient responded in the following manner, Calm , Compliant ,Cooperative. Continue to assess behaviors and condition will continue to monitor throughout the shift as needed. 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 Continue to assess patient for changes in above assessment. Monitor for medication needs, pain, and safety concerns. Hourly rounding performed to ensure safe environment.
--- NOTE | 2016-12-26 22:34 | HP ---
ADMIT DATE: 12/25/2016 IDENTIFYING DATA: The patient is a 66-year-old female who returns back to us from the Emergency Room at [facility] [place] where she presented with the [place] [employer] after she called him asking for a refrigeration brazer/solderer to give her last rites. She was threatening to stab herself. She said she was getting increasingly paranoid, psychotic and knew that if she did something wrong, should be asked to leave the apartment since she only had one more chance left before they would "kick me out." She took it on herself to call the police, threatening suicide, brought to the ER and then admitted to us. She had been noncompliant with her psychotropics for the past many days. CHIEF COMPLAINT: "I was getting manic again. I was getting anxious. I did not know what to do." HISTORY OF PRESENT ILLNESS: The patient has a long history of bipolar disorder with psychotic features. She was last here with us about a week 10 days back, stabilized for her bipolar symptoms then returned back to the apartment with outpatient followup at the [facility]. Reportedly, she has been noncompliant with her medications, slowly became increasingly psychotic, making threats to stab herself with a knife. She reportedly had a knife in her hand, was refusing medications, called the police department. She is reported to have flight of ideas, sleep disturbance, appetite disturbance and suicidal ideation noted above. Anxiety had been worsening recently. PAST PSYCHIATRIC HISTORY: As above. MEDICAL HISTORY: Diabetes mellitus, CHF, hypertension, hyperlipidemia, recurrent UTIs, hypothyroidism, TIA, she is deaf in her left ear, sleep apnea, Accu-Cheks before meals and at bedtime. DRUG ALLERGIES: Negative. CODE STATUS: Full. DIET: Regular, takes her medications whole, ambulates independently. CURRENT PSYCHOTROPICS: Risperdal 0.5 mg at bedtime, 0.25 mg at 1400, Remeron 7.5 mg at bedtime, Depakote ER 1250 mg at bedtime, but the level is less than 3 due to noncompliance, trazodone 150 mg at bedtime, may repeat x 1 for insomnia, Prozac 10 mg a day. FAMILY HISTORY: Noncontributory. SOCIAL HISTORY: No alcohol, drug abuse, physical, sexual or elder abuse history is noted. She is not known to be a perpetrator. MENTAL STATUS EXAMINATION: The patient was seen individually in the evening of 12/25/2016. She is reasonably oriented, readily recognized me. Speech is coherent, at times a little pressured, anxious. Abstraction fair, computation impaired, language function intact. Attention span short. She admits to suicidal ideation, but none actively as I assessed her at the evening of 12/25/2016. VITAL SIGNS: Temperature 97.7, BP 135/80, pulse 81, respirations 16. REVIEW OF SYSTEMS: No CV, , pulmonary, eye system symptoms on review. IMPRESSION: Bipolar 1 disorder, mixed with psychotic features; anxiety disorder, unspecified; impulse control disorder, unspecified. Rest of diagnoses unchanged as noted above. PLAN: Readmit to the Geropsychiatry unit at [facility] [place]. I will see her daily individually from a psychiatric standpoint and medical followup with Dr. George/Dr. Workman. Restart all her psychotropics. Check a valproic acid level. Adjust to reach a therapeutic level further. Decisions will be made after baseline assessment. MAN Frankie PAREKH MD DR: GEOVANY/paresh JOB#: [id number] / [id number]
--- NOTE | 2016-12-27 05:17 | PN ---
DATE: 12/26/2016 The patient was seen in the evening of 12/26/2016. This note covers elements not covered in my initial note. SUBJECTIVE: Per nursing report, the patient slept 8-1/4 hours. Temperature 97.8, BP 126/64, pulse 71. The patient remains anxious, somewhat labile at times. She has admitted to the nursing staff that she feels manic, somewhat attention seeking, anxious. REVIEW OF SYSTEMS: No CV, , pulmonary, eye, ENT system symptoms on review. MENTAL STATUS EXAM: Oriented to herself and situation. Speech coherent, pressured at times. Abstraction fair, computation impaired, language function intact. Attention span short. Mood and affect somewhat labile, manic. LABORATORY DATA: Reviewed. Valproic acid less than 3 due to noncompliance. IMPRESSION: Bipolar 1 disorder, mixed with psychotic features, anxiety disorder, unspecified; impulse control disorder, unspecified. PLAN: Restart all her psychotropics. Repeat labs and a valproic acid level in the morning. Increase Risperdal from 0.25 mg at 1400 to 0.5 mg at 1400. Continue 0.5 mg at bedtime. Continue Remeron 7.5 mg at bedtime, Prozac 10 mg a day, trazodone 150 mg at bedtime, may repeat x 1 for insomnia. MAN Frankie PAREKH MD DR: GEOVANY/paresh JOB#: [id number] / [id number]
[2016-12-27 06:05] VITALS: BP 125/62
[2016-12-27] MEDS: LEVOTHYROXINE 88 MCG TABLET PO SCH (06:13)
[2016-12-27 07:17] LABS: VAL ACID 69 mcg/mL (50-100)
[2016-12-27] MEDS: GLIMEPIRIDE 2 MG TABLET PO SCH (08:05)
[2016-12-27] MEDS: SENNOSIDES 8.6 MG TABLET PO SCH (08:05)
[2016-12-27] MEDS: OXYBUTYNIN CHLORIDE 5 MG TABLET PO SCH (08:05)
[2016-12-27] MEDS: CHOLECALCIFEROL (VITAMIN D3) 1,000 UNIT TABLET PO SCH (08:05)
[2016-12-27] MEDS: FLUoxetine HCL 10 MG CAPSULE PO SCH (08:05)
[2016-12-27] MEDS: PANTOPRAZOLE 40 MG TABLET. PO SCH (08:05)
[2016-12-27] MEDS: NICOTINE 21MG PATCH. TD SCH (08:06)
[2016-12-27] MEDS: CYANOCOBALAMIN (VITAMIN B-12) 250 MCG TABLET PO SCH (08:06)
--- NOTE | 2016-12-27 09:00 | NUR ---
MORENA received call from Pt's sister in law, Bonny, regarding reason for admit to this facility. Bonny also stated Pt. was due for her 2nd injection. SW inquired about the injection as Pt. was not [facility] an [facility] facility several weeks ago. Bonny stated the [facility] altered a medication to provide as an IM to help Pt. in her med non compliance. MORENA will pass this information along to Nursing for further investigation. MORENA reported the above information to PT's RN and she will contact [facility] for a current list of medications.
--- NOTE | 2016-12-27 10:47 | NUR ---
Group Note [facility] Group Type UNGAME Start Time: 09:40 End Time: 10:20 Problem: Depression Purpose: Increase Stimulation, Increase socialization, express thoughts/feelings Level of Participation: absent Behaviors or Symptoms Observed: Pts sat within group and answered questions from the UNGAME and shared experiences and thoughts and feelings around questions that were asked. Interventions: Directed Focus Plan: group Additional Comments:
[2016-12-27] MEDS ORDERED: PALI234D IM (11:05)
--- NOTE | 2016-12-27 11:24 | NUR ---
SW met w/Pt. 1:1 while sitting in the day rooom. SW asked Pt. to discuss the reason for readmit to this facility. Pt. was not able to track the conversation w/open ended questions and was redirected several times throughout the conversation. Pt. stated she purposely called the police and stated she was suicidal so that she could be admitted to this facility for her toño. Pt. stated she "messed up her meds" during the days she put them in the pillbox, making her manic. SW asked specific questions about dates related to the need for PT. to fill her own pill box as her sister Shawna set up the initial pills and a Home Health Nurse also follows Pt. on set up of medication. Pt. was not able to answer this question and actually provided this SW w/multiple answers that were not congruent w/the statement. SW asked the Pt. what was her plan was to help her to be successful this time at me as all of the community supports w/HH and [facility] were still not assisting Pt. in being successful. Pt. answered that she had been thinking about this and decided that she would be baptized and that would then help all of her problems to be much better. SW validated the methodist gesture, but asked further how that would help her choices to be different then they had been during all of the other multiple admits to this facility. Pt. acknowledged her multiple admits to this facility since August 2016 and the several ER visits where Pt. refused a Psych consult, but continued to be adamant that she would be "much better" this time because of being baptized. Pt. also stated Dr. Bertrand told her it was fine for her to leave this facility once her Valproic Acid level was therapeutic. SW discussed the need to talk further about realistic options such as transition to a Level II facility and Pt. absolutely refused to entertain this as an option at me. Pt. stated she would be returning home at me. Pt. understands she is not allowed any additional behavior problems at [facility] as she is on her final notice for possible eviction. SW asked what Pt's plan would be if she is evicted and if her family refuses to continue to assist her and PT. said that would not ever be a problem she would have to deal with at this time. SW explained the need to stay at this facility and Pt. was sure she would only stay until her VPA was therapeutic. Pt. then stated she would be ready to leave today. SW provided further information about leaving AMA and that SW would not be able to assist Pt. in planning any DC and Pt. was ok with this choice. SW stated she would contact Dr. Bertrand regarding this and report back any information. SW contacted Dr. Bertrand and explained the above situation. Pt's VPA is 68 as of today, however, Dr. Bertrand is not sure this is an accurate level as PT's VPA was less then [address] Bertrand asked this SW to relay that information and explain a new lab level would be drawn in [address] Bertrand instructed this SW to contact PT's Ad Operations Associate at [facility], Beto Mane to inquire about further assistance. MORENA mentioned the possibility of admit to OSH.
[2016-12-27] MEDS ORDERED: FURO40TA4 PO (13:17)
[2016-12-27] MEDS: risperiDONE 0.5 MG TABLET. PO SCH (13:38)
--- NOTE | 2016-12-27 14:04 | NUR ---
Nursing: Nathaly spoke with family regarding medication. Medication list requested from [facility] ([facility] Medication list reviewed and reconciled with Dr. Workman. Patient restarted on furosemide. HOLD Phenazopyridine and Loratadine. Continue on current dose of oxybutynin. See chart for more information. Waiting to speak with Dr. Bertrand regarding psychiatric medication's listed on [facility] medication list.
--- NOTE | 2016-12-27 14:55 | NUR ---
Nursing/AMA: Approximately 1415: Patient came to nursing station requesting to leave against medical advice. Patient encouraged to stay. Patient informed Dr. Bertrand wanted her to stay and have labs drawn in 3 days. Nurse and social work faculty member Nathaly spoke with patient. Patient alert and oriented x4. Patient denies SI. Patient reported she could take a cab home. 1424: Dr. Bertrand returned page. Dr. Bertrand spoke with Janey Mendez RN and Nathaly. Ordered to have patient sign AMA form. 1436: Form "Leaving the Hospital Against Medical Advice or Treatment" signed by patient and witnessed by Janey Mendez RN. Patient encouraged to follow-up with [facility]. 1440: All belongings returned to patient by Tia Jones. 1455: Taxi called. Patient ambulated off of unit accompanied by CLINICAL LAB CLERK. All belongings with patient.
--- NOTE | 2016-12-27 16:07 | NUR ---
MORENA is documenting information pertaining to Pt's decision to leave the unit AMA. This note was entered after Pt. left. Pt. walked up to nursing window while this SW was working w/RN and stated she would like to leave the facility AMA right now. SW reported the information Dr. Bertrand had shared earlier in that he would like to continue to monitor the valproic acid level and do another lab draw in 3 days . Pt. stated she has decided to leave now. SW asked Pt. if she felt as though she would harm herself or anyone else and Pt. stated, "No, you know I only said that as a ruse to be able to come here". This was witnessed by Arlin Dickerson RN. SW told Pt. Dr. Bertrand would be notified and then we would proceed w/AMA protocol. This SW spoke w/Dr. Bertrand who agreed Pt. would be leaving AMA. Dr. Bertrand asked SW to encourage Pt. to attend services at [facility] upon leaving this facility. SW again spoke w/PT. as she was signing the AMA paperwork. SW asked PT. to really think about the consequences of her decision to leave AMA, that likely her family would no longer be a support for her. Pt. stated she understand all of the consequences and she knows they are her responsibility. Pt. stated she know's exactly what she is doing and will not change her mind. SW asked her to continue to think about her decision while nursing was gathering her belongings. SW assisted Pt. downstairs to wait for the cab to pick her up as she made arrangements to take a cab home and plans to pay them once she is home w/money. Pt. again explained to this SW the reason for her admit was because she mis-managed her medications in between when her sister Shawna organized the meds and when [facility] w[facility] came to the home. SW was still unclear why there was a gap between services as Pt. has refused HH to enter her home in the recent past. Pt. again spoke of her plans to be baptized again in a voodoo. Pt. spoke highly of her case management assistant at the [facility] and SW encouraged Pt. to continue to attend day program and services there upon leaving this facility. Pt. stated she currently plans to continue those services. SW asked Pt. if SW could notify Bonny Bahena of her leaving AMA and Pt. stated this SW could contact Bonny after Pt. has left the facility. SW called Bonny after Pt. left facility and notified of Pt. leaving AMA.
--- NOTE | 2016-12-27 16:54 | NUR ---
MORENA completed APS report w/concerns of leaving AMA and general concerns of PT's mental well being and ability to make safe decisions. #[id number]. Addendum: 12/27/16 at 1703 by BELLA BERG MORENA faxed [phone] Guardianship/Conservator Referral to [facility] as supporting information to the APS report made. This paperwork was obtained from the [facility].
[2016-12-28] MEDS ORDERED: FUROSEMIDE 40 MG TABLET PO SCH (09:00)
--- NOTE | 2016-12-28 21:49 | DS ---
DATE OF DISCHARGE: 12/27/2016 DISCHARGE SUMMARY/PSYCHIATRIC PROGRESS NOTE This is late entry of 12/27/2016, covers elements not covered in my initial note. REASON FOR ADMISSION: Please refer to the admission history for details. Briefly, the patient is a 66-year-old female who returns back to us as an emergency via the Emergency Room at [facility] where she presented after she called the police department asking for a vest baster to give her last rights. She was threatening to stab herself, had been noncompliant with her psychotropics for her bipolar disorder and with outpatient treatment at the [facility] as had been arranged at the time of her discharge from her most recent stay here a few days previously. SIGNIFICANT FINDINGS AND CLINICAL COURSE: Following admission, the patient was seen daily individually by myself, followed medically per Dr. George/Dr. Workman. The patient stated shortly after admission that she made the statements wanting to end her life because she wanted to be readmitted since she feared if she made another mistake at the apartment she would be asked to leave the apartment never to be able to return there. She felt she needed her psychotropics restarted and then made the above statements to ensure she was hospitalized. She was restarted on her psychotropics and gradually seemed to do a little bit on the combination of Risperdal 0.5 mg twice a day, Remeron 7.5 at bedtime, Depakote ER 1250 at bedtime, trazodone 150 at bedtime, may repeat x 1 and Prozac 10 mg a day. Valproic acid level was therapeutic given though the initial level was less than 3 at admission following her noncompliance at home. However, at this stage her psychotropics were still being stabilized, but she demanded to leave against medical advice stating she wanted to be back at her apartment and had made all arrangements for this. Social service and nursing staff coordinated with the [facility] for outpatient treatment and she was discharged against medical advice. She denied any active suicidal or homicidal ideation at discharge. MENTAL STATUS EXAMINATION: Prior to discharge, reasonably oriented. Speech coherent, abstraction fair, computation impaired, language function intact. No active suicidal or homicidal ideation. FINAL DIAGNOSES: Bipolar 1 disorder, mixed with psychotic features, in partial remission; anxiety disorder, unspecified; impulse control disorder, unspecified. Rest diagnoses unchanged from admission. DISCHARGE MEDICATIONS: Please refer to the MRAD. DISCHARGE INSTRUCTIONS: Outpatient psychiatric followup at the [facility], medical followup with her primary care physician. Time for discharge day management greater than 30 minutes. GEOFF PAREKH MD DR: GEOVANY/paresh JOB#: [id number] / [id number]
== END 2016-12-27 14:55 | disposition left against medical advice (07) | DRG 885 ==
LOC: GEROPSY 03:01
PROVIDERS: ADMIT Psychiatry & Neurology Psychiatry; ATTEND Psychiatry & Neurology Psychiatry
DX: F31.60 Bipolar disorder, current episode mixed, unspecified (principal); I13.0 Hypertensive heart and chronic kidney disease with heart failure and stage 1 through stage 4 chronic kidney disease, or unspecified chronic kidney disease; R45.851 Suicidal ideations; F41.9 Anxiety disorder, unspecified; F63.9 Impulse disorder, unspecified; B35.1 Tinea unguium; E03.9 Hypothyroidism, unspecified; N18.9 Chronic kidney disease, unspecified; I50.9 Heart failure, unspecified; E11.22 Type 2 diabetes mellitus with diabetic chronic kidney disease; E78.5 Hyperlipidemia, unspecified; F17.200 Nicotine dependence, unspecified, uncomplicated; G47.30 Sleep apnea, unspecified; H91.90 Unspecified hearing loss, unspecified ear; Z79.899 Other long term (current) drug therapy; Z86.73 Personal history of transient ischemic attack (TIA), and cerebral infarction without residual deficits; Z87.440 Personal history of urinary (tract) infections; Z91.14 Patient's other noncompliance with medication regimen; Z53.21 Procedure and treatment not carried out due to patient leaving prior to being seen by health care provider
CPT/HCPCS: 36415; 80053; 80061; 80164; 82306; 82607; 82947; 83036; 83540; 83550; 83735; 83880; 84436; 84443; 84480; 85027; 86592; 86593; 99406; G0437

== ENCOUNTER 2018-10-02 20:18 | Emergency (ER) | payer MEDICARE, BC, OTHER ==
[~2018-10-02] VITALS: Ht 170.2 cm; Wt 197.4 kg
[2018-10-02 20:18] VITALS: BP 139/82
[~2018-10-02 20:18] MED LIST changes: +DIVA-51 PO; +DIVA-53 PO; -DIVA250T6 PO; -DIVA500T9 PO; -GUAI-107 PO; +GUAI-108 PO; +LEVO75TA5 PO; +PALI234D IM; -SENN-79 PO; +SENN-80 PO; +TRAZ-86 PO; -TRAZ-90 PO
--- NOTE | 2018-10-02 21:56 | RAD ---
PQRS Compliance statement: One or more of the following individualized dose reduction techniques were utilized for this examination: 1. Automated exposure control. 2. Adjustment of the mA and/or kV according to patient size. 3. Use of iterative reconstruction technique. Indication:FELL AND HIT BACK OF HEAD TECHNIQUE: CT head without IV contrast COMPARISON:None FINDINGS: No pathologic extra-axial or intra-axial fluid collection. Left basal ganglia calcifications are seen, nonspecific. No acute intracranial bleed. The ventricles and basal cisterns are within normal limits. No focal loss of oro-white differentiation. No large scalp hematoma. Visualized Orbits are within normal limits. No acute calvarial fractures. Visualized paranasal sinuses and mastoid air cells are clear. IMPRESSION: No acute intracranial bleed or calvarial fractures. Electronically signed by: James Matos DO (10/02/2018 9:53 PM) [facility]
[2018-10-02] MEDS ORDERED: NAPR-683 PO (23:12)
--- NOTE | 2018-10-02 23:12 | PHYS DOC ---
Past History Past Medical History: Diabetes, Hypertension, Hypothyroid, Other Past Surgical History: Other Smoking: Less than 1pk/day Alcohol Use: None Drug Use: None Adult General Chief Complaint Chief Complaint: MECHANICAL FALL HPI HPI Patient is a 68-year-old female patient of nursing facility who reportedly had fallen and hit the back of her head and her tailbone. Patient also complains of right knee pain. Patient denies any loss of consciousness but does complain of headache. She denies any neck pain. She also complains of tailbone pain. She denies any other injuries. He rates pain as being moderate. Review of Systems Review of Systems Constitutional: Denies fever or chills [] Respiratory: Denies cough or shortness of breath [] Cardiovascular: No additional information not addressed in HPI [] GI: Denies abdominal pain, nausea, vomiting, bloody stools or diarrhea [] Musculoskeletal: Complains of right knee, neck and lower back pain [] Neurologic: Complains of headache without focal weakness or sensory changes [] All other systems were reviewed and found to be within normal limits, except as documented in this note. Allergies Allergies Allergies Coded Allergies Type Severity Reaction Last Updated Verified No Known Drug Allergies 09/27/16 No Physical Exam Physical Exam Constitutional: Well developed, well nourished, no acute distress, non-toxic appearance. [] HENT: Normocephalic, atraumatic, bilateral external ears normal, oropharynx moist, no oral exudates, nose normal. [] Eyes: PERRLA, EOMI, conjunctiva normal, no discharge. [] Neck: Normal range of motion, no tenderness, supple, no stridor. [] Cardiovascular: Regular rate and rhythm[] Lungs & Thorax: Bilateral breath sounds clear to auscultation [] Abdomen: Bowel sounds normal, soft, no tenderness. [] Skin: Warm, dry, no erythema, no rash. [] Extremities: Patient reports to tenderness to palpation around the patella on the right. Patient has normal range of motion of knee. [] Neurologic: Awake and alert, no focal deficits noted. [] Current Patient Data Vital Signs Vital Signs Date Time Temp Pulse Resp B/P (MAP) Pulse Ox O2 Delivery O2 Flow Rate FiO2 10/02/18 20:18 98.9 95 18 98 Room Air EKG EKG [] Radiology/Procedures Radiology/Procedures [] Impressions: PROCEDURE: CT HEAD WO CONTRAST PQRS Compliance statement: One or more of the following individualized dose reduction techniques were utilized for this examination: 1. Automated exposure control. 2. Adjustment of the mA and/or kV according to patient size. 3. Use of iterative reconstruction technique. Indication:FELL AND HIT BACK OF HEAD TECHNIQUE: CT head without IV contrast COMPARISON:None X-ray imaging of the right knee and sacrum demonstrate no acute bony abnormalities. FINDINGS: No pathologic extra-axial or intra-axial fluid collection. Left basal ganglia calcifications are seen, nonspecific. No acute intracranial bleed. The ventricles and basal cisterns are within normal limits. No focal loss of oro-white differentiation. No large scalp hematoma. Visualized Orbits are within normal limits. No acute calvarial fractures. Visualized paranasal sinuses and mastoid air cells are clear. IMPRESSION: No acute intracranial bleed or calvarial fractures. Electronically signed by: James Matos DO (10/02/2018 9:53 PM) [facility] Course & Med Decision Making Course & Med Decision Making Pertinent Labs and Imaging studies reviewed. (See chart for details) [] Dragon Disclaimer Dragon Disclaimer This electronic medical record was generated, in whole or in part, using a voice recognition dictation system. Departure Departure: Impression: Primary Impression: Closed head injury Additional Impressions: Right knee sprain Coccyx contusion Disposition: 01 HOME, SELF-CARE Condition: STABLE Referrals: LUIS DANIEL SOTO MD (PCP) Patient Instructions: Contusion, Head Injury, Adult, Knee Sprain Scripts Naproxen (NAPROSYN) 500 Mg Tablet 1 TAB PO BID PRN for PAIN, #20 TAB Prov: ROHINI BARRETO Jr., DO 10/02/18 Problem Qualifiers Primary Impression: Closed head injury Encounter type: initial encounter Qualified Codes: S09.90XA - Unspecified injury of head, initial encounter Additional Impressions: Right knee sprain Encounter type: initial encounter Involved ligament of knee: unspecified ligament Qualified Codes: S83.91XA - Sprain of unspecified site of right knee , initial encounter Coccyx contusion Encounter type: initial encounter Qualified Codes: S30.0XXA - Contusion of lower back and pelvis, initial encounter ROHINI BARRETO Jr., DO Oct 02, 2018 23:12
--- NOTE | 2018-10-02 23:26 | RAD ---
Indication:FALL, RIGHT KNEE PAIN TECHNIQUE: 3 views of the right knee COMPARISON:None FINDINGS: No acute fracture or dislocation. Moderate lateral compartment space narrowing. No joint effusion. IMPRESSION: Moderate lateral compartment arthritis. No acute findings. Electronically signed by: James Matos DO (10/02/2018 11:23 PM) [facility]
--- NOTE | 2018-10-02 23:35 | RAD ---
Indication: Fall. TECHNIQUE: 3 views of the sacrococcygeal spine COMPARISON: FINDINGS: The sacrococcygeal spine is in normal anatomic alignment. No apparent fractures seen. Bilateral hip symmetric. SI joints within normal limits. IMPRESSION: No acute findings. Electronically signed by: James Matos DO (10/02/2018 11:32 PM) [facility]
== END 2018-10-02 23:23 | disposition home or self-care (01) ==
LOC: ER 20:18
DX: S83.91XA Sprain of unspecified site of right knee, initial encounter (principal); S09.8XXA Other specified injuries of head, initial encounter; S30.0XXA Contusion of lower back and pelvis, initial encounter; E11.9 Type 2 diabetes mellitus without complications; I10 Essential (primary) hypertension; E03.9 Hypothyroidism, unspecified; F17.200 Nicotine dependence, unspecified, uncomplicated; W18.09XA Striking against other object with subsequent fall, initial encounter; Y93.89 Activity, other specified; Y92.128 Other place in nursing home as the place of occurrence of the external cause; Y99.8 Other external cause status
CPT/HCPCS: 70450; 72220; 73562; 99284-25

== ENCOUNTER 2019-02-28 03:22 | Inpatient (IN) | payer MEDICARE, BC, OTHER ==
[~2019-02-28] VITALS: Ht 170.2 cm; Wt 90.4 kg
[~2019-02-28 03:22] MED LIST changes: +NAPR-683 PO; +OMEP20CA10 PO; -OMEP20CA9 PO
[2019-02-28] MEDS ORDERED: IV NORMAL SALINE 500ML 500 ML IV ONE (04:00)
[2019-02-28 04:34] LABS: BASO # 0.1 x10^3/uL (0.0-0.2); BASO % 1 % (0-3); EOS # 0.1 x10^3/uL (0.0-0.7); EOS % 1 % (0-3); HEMATOCRIT 41.5 % (36.0-47.0); HEMOGLOBIN 13.7 g/dL (12.0-15.5); LYMPH # 2.4 x10^3/uL (1.0-4.8); LYMPH % 24 % (24-48); MEAN CORPUSCULAR HEMOGLOBIN 32 pg (25-35); MEAN CORPUSCULAR HGB CONC 33 g/dL (31-37); MEAN CORPUSCULAR VOLUME 96 fL (79-100); MONO # 1.4 x10^3/uL (0.0-1.1); MONO % 14 % (0-9); NEUT # 5.8 x10^3uL (1.8-7.7); NEUT % 59 % (31-73); PLATELET COUNT 193 x10^3/uL (140-400); RED BLOOD COUNT 4.32 x10^6/uL (3.50-5.40); RED CELL DISTRIBUTION WIDTH 13.8 % (11.5-14.5); WHITE BLOOD COUNT 9.8 x10^3/uL (4.0-11.0)
[2019-02-28 05:04] LABS: ALBUMIN 3.1 g/dL (3.4-5.0); ALBUMIN/GLOBULIN RATIO 0.8 (1.0-1.7); CALCIUM 9.7 mg/dL (8.5-10.1); CREATININE 1.2 mg/dL (0.6-1.0); GFR 44.7; MAGNESIUM 1.8 mg/dL (1.8-2.4); POTASSIUM 4.2 mmol/L (3.5-5.1); TOTAL BILIRUBIN 0.3 mg/dL (0.2-1.0); TOTAL PROTEIN 6.9 g/dL (6.4-8.2)
--- NOTE | 2019-02-28 05:37 | PHYS DOC ---
Past History Past Medical History: Diabetes, Hypertension, Hypothyroid, Other Past Surgical History: Other Smoking: Less than 1pk/day Alcohol Use: None Drug Use: None Adult General Chief Complaint Chief Complaint: WEAKNESS/GENERALIZED HPI HPI Patient is a 69-year-old female who presents via EMS with report of weakness and inability to ambulate this morning. [facility] reports that patient has been leaning to her left and has been confused with greater weakness. They also indicate the patient was reporting dizziness. Upon arrival, EMS reports that patient's [place] stroke scale was negative. Patient is awake and alert and denies any pain. She does appear confused and is disoriented to place and time. Additional history is somewhat limited due to patient mental status.[] Review of Systems Review of Systems Constitutional: Positive fever reported[] Respiratory: Denies cough or shortness of breath [] Cardiovascular: No additional information not addressed in HPI [] GI: Denies abdominal pain [] Integument: Denies rash or skin lesions [] Neurologic: Positive generalized weakness [] All other systems were reviewed and found to be within normal limits, except as documented in this note. Current Medications Current Medications Current Medications Medications (Trade) Dose Ordered Sig/Denice Start Time Stop Time Status Last Admin Dose Admin Sodium Chloride 500 ml @ 500 mls/hr 1X ONCE 02/28/19 04:00 02/28/19 04:59 DC 02/28/19 04:47 500 MLS/HR Allergies Allergies Allergies Coded Allergies Type Severity Reaction Last Updated Verified No Known Drug Allergies 09/27/16 No Physical Exam Physical Exam Constitutional: Awake and alert, no acute distress, non-toxic appearance. [] HENT: Normocephalic, atraumatic, bilateral external ears normal, oropharynx dry, no oral exudates, nose normal. [] Eyes: PERRLA, EOMI, conjunctiva normal, no discharge. [] Neck: Normal range of motion, no tenderness, supple. [] Cardiovascular: Regular rate and rhythm[] Lungs & Thorax: Bilateral breath sounds clear to auscultation [] Abdomen: Bowel sounds normal, soft, no tenderness. [] Skin: Warm, dry, no erythema, no rash. [] Extremities: No tenderness, no cyanosis, no clubbing, ROM intact. [] Neurologic: Awake and alert, no focal deficits noted. [] Current Patient Data Vital Signs Vital Signs Date Time Temp Pulse Resp B/P (MAP) Pulse Ox O2 Delivery O2 Flow Rate FiO2 02/28/19 03:23 100.0 99 20 95 Room Air Lab Results Laboratory Tests Test 02/28/19 04:05 White Blood Count 9.8 x10^3/uL (4.0-11.0) Red Blood Count 4.32 x10^6/uL (3.50-5.40) Hemoglobin 13.7 g/dL (12.0-15.5) Hematocrit 41.5 % (36.0-47.0) Mean Corpuscular Volume 96 fL (79-100) Mean Corpuscular Hemoglobin 32 pg (25-35) Mean Corpuscular Hemoglobin Concent 33 g/dL (31-37) Red Cell Distribution Width 13.8 % (11.5-14.5) Platelet Count 193 x10^3/uL (140-400) Neutrophils (%) (Auto) 59 % (31-73) Lymphocytes (%) (Auto) 24 % (24-48) Monocytes (%) (Auto) 14 % (0-9) H Eosinophils (%) (Auto) 1 % (0-3) Basophils (%) (Auto) 1 % (0-3) Neutrophils # (Auto) 5.8 x10^3uL (1.8-7.7) Lymphocytes # (Auto) 2.4 x10^3/uL (1.0-4.8) Monocytes # (Auto) 1.4 x10^3/uL (0.0-1.1) H Eosinophils # (Auto) 0.1 x10^3/uL (0.0-0.7) Basophils # (Auto) 0.1 x10^3/uL (0.0-0.2) Sodium Level 136 mmol/L (136-145) Potassium Level 4.2 mmol/L (3.5-5.1) Chloride Level 100 mmol/L (98-107) Carbon Dioxide Level 27 mmol/L (21-32) Anion Gap 9 (6-14) Blood Urea Nitrogen 23 mg/dL (7-20) H Creatinine 1.2 mg/dL (0.6-1.0) H Estimated GFR (Cockcroft-Gault) 44.7 BUN/Creatinine Ratio 19 (6-20) Glucose Level 299 mg/dL (70-99) H Lactic Acid Level 1.4 mmol/L (0.4-2.0) Calcium Level 9.7 mg/dL (8.5-10.1) Magnesium Level 1.8 mg/dL (1.8-2.4) Total Bilirubin 0.3 mg/dL (0.2-1.0) Aspartate Amino Transferase (AST) 21 U/L (15-37) Alanine Aminotransferase (ALT) 18 U/L (14-59) Alkaline Phosphatase 76 U/L (46-116) Troponin I Quantitative < 0.017 ng/mL (0-0.055) SI-Tcy-Y-Type Natriuretic Peptide 432 pg/mL (0-124) H Total Protein 6.9 g/dL (6.4-8.2) Albumin 3.1 g/dL (3.4-5.0) L Albumin/Globulin Ratio 0.8 (1.0-1.7) L EKG EKG [] Radiology/Procedures Radiology/Procedures [] Course & Med Decision Making Course & Med Decision Making Pertinent Labs and Imaging studies reviewed. (See chart for details) [] Dragon Disclaimer Dragon Disclaimer This electronic medical record was generated, in whole or in part, using a voice recognition dictation system. Departure Departure: Impression: Primary Impression: UTI (urinary tract infection) Additional Impression: Altered mental status Disposition: ADMITTED INPATIENT Admitting Physician: Tomás Workman Condition: GOOD Referrals: LUIS DANIEL SOTO MD (PCP) Problem Qualifiers Primary Impression: UTI (urinary tract infection) Urinary tract infection type: site unspecified Hematuria presence: with hematuria Qualified Codes: N39.0 - Urinary tract infection, site not specified; R31.9 - Hematuria, unspecified Additional Impression: Altered mental status Altered mental status type: unspecified Qualified Codes: R41.82 - Altered mental status, unspecified ROHINI BARRETO Jr. DO Feb 28, 2019 05:37
[2019-02-28 05:41] LABS: BACTERIA,URINE MANY /HPF (0-FEW); BILIRUBIN,URINE NEG (NEG); CLARITY,URINE CLOUDY; COLOR,URINE YELLOW; GLUCOSE,URINE 500 mg/dL (NEG); NITRITE,URINE NEG (NEG); RBC,URINE OCC /HPF (0-2); SQUAMOUS EPITHELIAL CELL,UR FEW /LPF; UROBILINOGEN,URINE 1 mg/dL (0.2 mg/dL); WBC,URINE TNTC /HPF (0-4)
[2019-02-28] MEDS ORDERED: ACETAMINOPHEN 325 MG TABLET PO PRN ×2 (06:00→10:00)
[2019-02-28] MEDS ORDERED: IV NORMAL SALINE 50ML 50 ML ONE (06:06)
[2019-02-28] MEDS ORDERED: cefTRIAXone SODIUM 1 GM VIAL ONE (06:07)
[2019-02-28] MEDS: IV NORMAL SALINE 1,000ML 1,000 ML IV SCH ×2 (06:17→14:02)
[2019-02-28] MEDS ORDERED: BISA5TAB4 PO (08:20)
[2019-02-28] MEDS ORDERED: LEVO125T5 PO (08:20)
[2019-02-28] MEDS ORDERED: CRAN400C PO (08:20)
[2019-02-28] MEDS ORDERED: BISA10SU4 RC (08:20)
[2019-02-28] MEDS ORDERED: ESCITALOPRAM OX10 MG PO (08:20)
[2019-02-28] MEDS ORDERED: CALC300T5 PO (08:20)
[2019-02-28] MEDS ORDERED: D-MA300P PO (08:20)
[2019-02-28] MEDS ORDERED: BENZ1TAB5 PO (08:20)
--- NOTE | 2019-02-28 09:13 | RAD ---
EXAM: AP View of the chest DATE: 02/28/2019 3:24 AM INDICATION: Weakness and dizziness COMPARISON: No Prior FINDINGS: The heart is not enlarged. Atherosclerotic calcifications of aorta are seen. Mediastinal and hilar contours are normal. Patchy opacity left lung base likely atelectasis. No pleural effusion or pneumothorax. IMPRESSION: 1. Minimal patchy opacities left lung base likely atelectasis. 2. Otherwise No radiographic evidence for acute cardiopulmonary process. Electronically signed by: Sujit Reich MD (02/28/2019 9:10 AM) [facility]
[2019-02-28] MEDS ORDERED: DEXTROSE 50% 25 GM / 50ML DISP.SYRIN. IV PRN ×2 (09:30→17:15)
[2019-02-28] MEDS ORDERED: BISACODYL TAB 5 MG TABLET.DR. PO PRN (10:00)
[2019-02-28] MEDS ORDERED: MAGNESIUM HYDROXIDE 2,400 MG/30 ML ORAL.SUSP. PO PRN (10:00)
[2019-02-28] MEDS: LEVOTHYROXINE 125 MCG TABLET PO SCH (10:00)
[2019-02-28] MEDS: FUROSEMIDE 40 MG TABLET PO SCH (10:00)
[2019-02-28] MEDS ORDERED: BISACODYL 10 MG SUPP.RECT RC PRN (10:00)
[2019-02-28] MEDS ORDERED: NYSTATIN TOPICAL POWDER 15GM BOTTLE. TP PRN (10:00)
[2019-02-28] MEDS: CITALOPRAM 20 MG TABLET. PO SCH (10:00)
[2019-02-28 10:37] VITALS: BP 102/70
[2019-02-28] MEDS ORDERED: INSULIN LISPRO 300 UNITS/3 ML INSULN.PEN. SQ SCH (12:00)
--- NOTE | 2019-02-28 12:55 | EKG ---
[address] [address] Test Date: 2019-02-28 Test Time: 04:18:40 Pat Name: ISABEL ADAMES Department: Room: Gender: F Home Care Associate: NALINI : 1950 Requested By: ROHINI BARRETO Order Number: [id number] Reading MD: Measurements Intervals [place] Rate: 98 P: 6 NC: 176 QRS: 28 QRSD: 80 T: 26 QT: 312 QTc: 400 Interpretive Statements SINUS RHYTHM NO SPECIFIC ECG ABNORMALITIES RI6.01 No previous ECG available for comparison
[2019-02-28] MEDS ORDERED: MAG HYDROX/AL HYDROX/SIMETH 30 ML ORAL.SUSP PO PRN (13:15)
[2019-02-28] MEDS ORDERED: CALCIUM CARBONATE 500 MG TAB.CHEW PO PRN (13:30)
[2019-02-28] MEDS ORDERED: NAPROXEN 500 MG TABLET PO PRN (13:30)
[2019-02-28] MEDS: BENZTROPINE MESYLATE 1 MG TABLET PO SCH ×2 (14:01→20:57)
[2019-02-28] MEDS: D MANNOSE 500 MG PO SCH ×2 (14:02→20:56)
[2019-02-28 14:23] VITALS: BP 124/71
--- NOTE | 2019-02-28 15:29 | HP ---
ADMIT DATE: 02/28/2019 HISTORY OF PRESENT ILLNESS: The patient is a 69-year-old female patient, a resident at [facility] who was brought with generalized weakness and altered mental status and inability to ambulate this morning. Nursing staff from the [facility] reports that the patient has been leaning to her left and has been confused with greater weakness. They also indicated that the patient was reporting dizziness. Upon arrival, the emergency medical service personnel reports the patient's [place] Stroke Scale was negative. The patient was awake, alert and denied any pain. She does appear confused and disoriented to place and time. Additional history is somewhat limited due to the patient's mental status. She was apparently extensively investigated. Her lab work showed that she has no leukocytosis, but she was somewhat dehydrated with elevated BUN and creatinine. Her CT scan of the head and her chest x-ray was unremarkable. The heart is not enlarged. Atherosclerotic calcification of the aorta is seen. Mediastinal hilar contours are normal. Patchy opacity of the left lung base, likely atelectasis, no pleural effusion or pneumothorax. Her urinalysis, however, showed that she has too numerous to count wbc's and small amount of leukocyte esterase, occasional rbc's, and many bacteria and the patient was admitted with altered mental status, likely due to urinary tract infection and was started on IV ceftriaxone. On questioning her, she stated that she has diffuse abdominal pain and constipation and stated that her last bowel movement was a week ago, although difficult to verify this information given her cognitive impairment. PAST MEDICAL HISTORY: Significant for type 2 diabetes mellitus, hypertension, hyperlipidemia, congestive heart failure, hypothyroidism, recurrent UTIs, TIA. She is deaf in her left ear. She has obstructive sleep apnea. PAST SURGICAL HISTORY: Unremarkable. FAMILY HISTORY: Noncontributory. SOCIAL HISTORY: She is a resident at [facility]. She does not smoke, drink alcohol or use any recreational drugs. CODE STATUS: Full. MEDICATIONS: She is currently on following medications: She is on naproxen 500 mg twice a day, acetaminophen 650 mg every 6 hours. She is on divalproex 250 mg at bedtime, escitalopram oxalate 10 mg once a day, benztropine mesylate 1 mg p.o. b.i.d., furosemide 40 mg daily, calcium carbonate 600 mg as needed. She is on Maalox 15 mL after meals, bisacodyl 5 mg tablet as needed for constipation, bisacodyl 10 mg suppository rectally daily p.r.n. for constipation, milk of magnesia 30 mL p.o. daily p.r.n. for constipation, glimepiride 4 mg daily, levothyroxine sodium 125 mcg daily, Nystatin powder applied topically twice a day, cranberry 400 mg capsules daily and ____ 500 mg q.i.d. for recurrent UTIs. REVIEW OF SYSTEMS: As per history of present illness. PHYSICAL EXAMINATION: GENERAL: On arrival to the Emergency Room, the patient looked slightly pale, but no jaundice, cyanosis, or thyromegaly. No jugular venous distension. No limb edema. VITAL SIGNS: Her heart rate was 99, blood pressure was 128/66, temperature was 100, respiratory rate was 16, and oxygen saturation was 95%. HEAD, EYES, EARS, NOSE AND THROAT: Showed normocephalic, atraumatic. NECK: Supple. HEART: Showed normal first and second heart sounds with no gallop, rub or murmur. CHEST: Clear to auscultation. No crepitation or rhonchi. ABDOMEN: Distended with mild diffuse tenderness. No guarding or rigidity. No organomegaly. All hernial orifice intact. Bowel sounds normal. NEUROLOGIC: She was demented, but without any obvious lateralizing sign. The patient is able to ambulate with a standby assist. LABORATORY DATA: Showed a white cell count 9800, hemoglobin 13.7, hematocrit 41.5, MCV 96, and platelet count of 193,000. Her serum sodium was 136, potassium 4.2, chloride 100, bicarbonate 27, anion gap of 9, BUN 23, creatinine was 1.2, estimated GFR was 44 mL per minute. Her glucose was 199. Her lactic acid was 1.4, calcium was 9.7, magnesium was 1.8. Total bilirubin, AST, ALT, alkaline phosphatase were normal. Her beta-natriuretic peptide was 432. Total protein was 6.9, albumin was 3.1. Her urinalysis showed the urine was yellow, cloudy with a pH of 5.5, specific gravity of 1.010. The urine was negative for protein. There was large amount of glucose, negative for ketones, trace for blood, negative for nitrite and bilirubin. There was small amount of leukocyte esterase, occasional rbc's, too numerous to count wbc's and many bacteria. Her chest x-ray showed that the heart is not enlarged. Atherosclerotic calcification of the aorta is seen. Mediastinal and hilar contours are normal. Patchy opacity in the left lung base, likely atelectasis, no pleural effusion or pneumothorax. ASSESSMENT AND PLAN: The patient was admitted basically with generalized weakness. There was no evidence of any specific neurological deficit. She has a UTI for which she was started her on IV ceftriaxone. We will continue all her medication and follow her closely and await the result of the culture and sensitivity. STACEY MOORE MD DR: TASHI/paresh JOB#: [id number] / [id number]
[2019-02-28 19:00] VITALS: BP 142/63
[2019-02-28] MEDS: DIVALPROEX ER 250 MG TAB.ER.24H. PO SCH (20:57)
[2019-02-28] MEDS: DIVALPROEX ER 500 MG TAB.ER.24H PO SCH (20:57)
[2019-02-28 23:10] VITALS: BP 102/56
[2019-03-01] MEDS: LEVOTHYROXINE 125 MCG TABLET PO SCH (05:23)
[2019-03-01] MEDS: IV NORMAL SALINE 1,000ML 1,000 ML IV SCH (05:25)
[2019-03-01 05:29] VITALS: BP 135/85
[2019-03-01 06:38] LABS: ALBUMIN 2.4 g/dL (3.4-5.0); ALBUMIN/GLOBULIN RATIO 0.7 (1.0-1.7); CALCIUM 8.7 mg/dL (8.5-10.1); GFR 55.1; POTASSIUM 4.3 mmol/L (3.5-5.1); TOTAL BILIRUBIN 0.2 mg/dL (0.2-1.0)
[2019-03-01 06:45] LABS: HEMATOCRIT 37.5 % (36.0-47.0); HEMOGLOBIN 12.2 g/dL (12.0-15.5); RED BLOOD COUNT 3.86 x10^6/uL (3.50-5.40); RED CELL DISTRIBUTION WIDTH 14.4 % (11.5-14.5); WHITE BLOOD COUNT 9.3 x10^3/uL (4.0-11.0)
[2019-03-01] MEDS: BENZTROPINE MESYLATE 1 MG TABLET PO SCH ×2 (08:10→20:33)
[2019-03-01] MEDS: CITALOPRAM 20 MG TABLET. PO SCH (08:11)
[2019-03-01] MEDS: GLIMEPIRIDE 2 MG TABLET PO SCH (08:11)
[2019-03-01] MEDS: FUROSEMIDE 40 MG TABLET PO SCH (08:11)
[2019-03-01] MEDS: D MANNOSE 500 MG PO SCH ×4 (08:17→20:33)
[2019-03-01] MEDS: INSULIN LISPRO 300 UNITS/3 ML INSULN.PEN. SQ SCH ×3 (08:17→17:00)
[2019-03-01] MEDS ORDERED: NON FORMULARY ITEM (Cranberry 400 MG) PO SCH (09:00)
[2019-03-01 15:23] VITALS: BP 117/78
[2019-03-01 19:39] VITALS: BP 122/76
[2019-03-01] MEDS: LACTOBACILLUS RHAMNOSUS GG 1 CAPSULE. PO SCH (20:32)
[2019-03-01] MEDS: DIVALPROEX ER 250 MG TAB.ER.24H. PO SCH (20:32)
[2019-03-01] MEDS: DIVALPROEX ER 500 MG TAB.ER.24H PO SCH (20:32)
[2019-03-02] MEDS: LEVOTHYROXINE 125 MCG TABLET PO SCH (05:41)
[2019-03-02 05:57] VITALS: BP 114/70
[2019-03-02] MEDS: BENZTROPINE MESYLATE 1 MG TABLET PO SCH (08:32)
[2019-03-02] MEDS: LACTOBACILLUS RHAMNOSUS GG 1 CAPSULE. PO SCH (08:32)
[2019-03-02] MEDS: GLIMEPIRIDE 2 MG TABLET PO SCH (08:32)
[2019-03-02] MEDS: CITALOPRAM 20 MG TABLET. PO SCH (08:32)
[2019-03-02] MEDS: FUROSEMIDE 40 MG TABLET PO SCH (08:33)
[2019-03-02] MEDS: D MANNOSE 500 MG PO SCH (08:33)
[2019-03-02] MEDS: INSULIN LISPRO 300 UNITS/3 ML INSULN.PEN. SQ SCH (08:35)
[2019-03-02 11:00] VITALS: BP 109/73
--- NOTE | 2019-03-02 14:22 | PN ---
DATE: 03/01/2019 SUBJECTIVE: The patient is resting, slightly propped up in bed, in no apparent distress. On questioning her, denied any complaint. The nursing staff did not voice any concern and stated that she had an uneventful night. PHYSICAL EXAMINATION: GENERAL: When I examined her, she looked well and was clearly in no apparent respiratory distress. No pallor, jaundice, cyanosis, or thyromegaly. No jugular venous distension. No limb edema. VITAL SIGNS: Her heart rate was 80, blood pressure 117/78, temperature was 97.8, respiratory rate 20, and oxygen saturation was 96%. Her physical exam is otherwise unremarkable. LABORATORY DATA: Her lab work showed a white cell count of 9300, hemoglobin 12, hematocrit 37, MCV 97 and platelet count of 174,000. Her serum sodium was 136, potassium 4.2, chloride 100, bicarbonate 27, anion gap of 9, BUN was 17, creatinine 1, estimated GFR was 55 mL per minute. Her glucose was 141, calcium was 8.7. Total bilirubin, AST, ALT, alkaline phosphatase were normal. Total protein 6, albumin was 2.74. Her urinalysis showed that she has too numerous to count wbc's. Her urine culture is still pending at the time of this dictation. ASSESSMENT AND PLAN: 1. Altered mental status, generalized weakness. 2. Urinary tract infection for which she was on IV ceftriaxone. Other medical problems including type 2 diabetes mellitus, hypertension, hyperlipidemia, congestive heart failure, hypothyroidism and obstructive sleep apnea. STACEY MOORE MD DR: TASHI/paresh JOB#: [id number] / [id number]
== END 2019-03-02 13:50 | DRG 689 ==
LOC: ER 03:22 → 1 SOUTH 05:48
PROVIDERS: ADMIT Internal Medicine; ATTEND Internal Medicine
DX: N39.0 Urinary tract infection, site not specified (principal); G93.41 Metabolic encephalopathy; J98.11 Atelectasis; E03.9 Hypothyroidism, unspecified; E11.9 Type 2 diabetes mellitus without complications; E78.5 Hyperlipidemia, unspecified; E86.0 Dehydration; G47.33 Obstructive sleep apnea (adult) (pediatric); H91.92 Unspecified hearing loss, left ear; I11.0 Hypertensive heart disease with heart failure; I50.9 Heart failure, unspecified; I70.0 Atherosclerosis of aorta; Z86.73 Personal history of transient ischemic attack (TIA), and cerebral infarction without residual deficits; Z87.440 Personal history of urinary (tract) infections
CPT/HCPCS: 36415; 51702; 71045; 80053; 81001; 82947; 83605; 83735; 83880; 84484; 85025; 85027; 87040; 87086; 87186; 87641; 93005; 96365; J0696; J1815; J7040; 97110; 97530; 97535; 99285-25; J7030

== ENCOUNTER 2019-05-16 11:30 | Inpatient (IN) | payer MEDICARE, BC, OTHER ==
[~2019-05-16] VITALS: Ht 170.2 cm; Wt 91.7 kg
[~2019-05-16 11:30] MED LIST changes: +BENZ1TAB5 PO; +BISA10SU4 RC; +BISA5TAB4 PO; +CALC300T5 PO; +CRAN400C PO; +D-MA300P PO; +DOXY-96 PO; -DOXY100T9 PO; +ESCITALOPRAM OX10 MG PO; -GLIM4TAB2 PO; +GLIM4TAB4 PO; +LEVO125T5 PO; -OXYB10TA PO; +OXYB10TA2 PO; +OXYB5TAB10 PO; -OXYB5TAB7 PO; +SIMV40TA18 PO; -SIMV40TA3 PO
[2019-05-16 12:36] LABS: BASO # 0.1 x10^3/uL (0.0-0.2); BASO % 1 % (0-3); EOS # 0.1 x10^3/uL (0.0-0.7); EOS % 1 % (0-3); HEMATOCRIT 41.8 % (36.0-47.0); HEMOGLOBIN 13.8 g/dL (12.0-15.5); LYMPH % 20 % (24-48); MEAN CORPUSCULAR HEMOGLOBIN 32 pg (25-35); MEAN CORPUSCULAR HGB CONC 33 g/dL (31-37); MEAN CORPUSCULAR VOLUME 96 fL (79-100); MONO # 1.2 x10^3/uL (0.0-1.1); MONO % 12 % (0-9); NEUT # 6.7 x10^3uL (1.8-7.7); NEUT % 66 % (31-73); PLATELET COUNT 157 x10^3/uL (140-400); RED BLOOD COUNT 4.36 x10^6/uL (3.50-5.40); RED CELL DISTRIBUTION WIDTH 14.2 % (11.5-14.5); WHITE BLOOD COUNT 10.1 x10^3/uL (4.0-11.0)
[2019-05-16 12:59] LABS: ALBUMIN 2.9 g/dL (3.4-5.0); ALBUMIN/GLOBULIN RATIO 0.6 (1.0-1.7); C REACTIVE PROTEIN 24.3 mg/L (0-3.3); CALCIUM 9.7 mg/dL (8.5-10.1); CREATININE 1.5 mg/dL (0.6-1.0); GFR 34.5; MAGNESIUM 1.9 mg/dL (1.8-2.4); POTASSIUM 3.8 mmol/L (3.5-5.1); TOTAL BILIRUBIN 0.3 mg/dL (0.2-1.0); TOTAL PROTEIN 7.4 g/dL (6.4-8.2)
--- NOTE | 2019-05-16 13:11 | RAD ---
Right lower extremity arterial Doppler 05/16/2019 INDICATION: Swelling and pain of the right lower extremity with decreased pulses. COMPARISON: Bilateral lower extremity arterial Doppler 10/19/2016 TECHNIQUE: Sonographic evaluation of the right lower extremity arterial system was performed utilizing grayscale, color Doppler and spectral waveform analysis. FINDINGS: Right: Biphasic waveforms are identified throughout the right lower extremity suggestive of at least mild peripheral vascular disease. Waveforms were previously triphasic in October 19, 2016. Evaluation is limited by degree of edema with poor visualization of certainty vessels. Common femoral artery: 153 cm/s Profunda artery: 79 cm/s Superficial femoral artery, proximal: 115 cm/s Superficial femoral artery, mid: 71 cm/s Superficial femoral artery, distal: 83 cm/s Popliteal artery: 63 cm/s Posterior tibial artery: 40 cm/s with proximal posterior tibial artery not well visualized. Anterior tibial artery : Not visualized Dorsalis pedis artery: 37 cm/s IMPRESSION: Biphasic waveforms are identified at the right lower extremity with poor visualization of the proximal posterior tibial artery and anterior tibial artery. Wave forms are noted within the dorsalis pedis artery. Findings favor mild to moderate peripheral vascular disease, progressed since 10/19/2016. Electronically signed by: Marlene Thibodeaux MD (05/16/2019 1:08 PM) [facility]
--- NOTE | 2019-05-16 13:17 | PHYS DOC ---
Past History Past Medical History: Bipolar, Depression, Diabetes, GERD, Glaucoma, Hypertension, Hypothyroid, Schizophrenia Past Surgical History: No Surgical History Smoking: Quit Greater Than 1 Year Alcohol Use: None Drug Use: None Adult General Chief Complaint Chief Complaint: FOOT INJURY PAIN HPI HPI 69-year-old female presents with report of several day history of right lower extremity swelling and tenderness. Caregiver also reports purplish hue to foot. Denies known trauma. Patient had recent x-ray of right foot on 05/13/2019 which noted some minimal arthritis. Patient also with history of right knee x-ray on 04/26/2019 which noted decreased joint space and lateral osteophytes. Patient has been treated with naproxen and Voltaren gel without significant improvement of her symptoms. Denies chest pain. Denies shortness of air. Patient was sent to the ER for further evaluation with concern for possible DVT and or cellulitis. Denies any fever or chills. Review of Systems Review of Systems Constitutional: Denies fever or chills Eyes: Denies redness or eye pain HENT: Denies nasal congestion or sore throat Respiratory: Denies cough or shortness of breath Cardiovascular: Denies chest pain or palpitations GI: Denies abdominal pain, nausea, or vomiting : Denies dysuria or hematuria Musculoskeletal: Denies back pain; RLE swelling and tenderness Integument: Color change to RLE/foot Neurologic: Denies headache, focal weakness or sensory changes Complete systems were reviewed and found to be within normal limits, except as documented in this note. Allergies Allergies Allergies Coded Allergies Type Severity Reaction Last Updated Verified quetiapine Allergy Intermediate 03/01/19 Yes Physical Exam Physical Exam Constitutional: Well developed, well nourished, no acute distress, non-toxic appearance HENT: Normocephalic, atraumatic, oropharynx moist Eyes: Conjunctiva normal, no discharge Neck: Normal range of motion, no tenderness, supple Cardiovascular: Heart rate normal, regular rhythm Lungs & Thorax: Bilateral breath sounds clear to auscultation, no wheezing Abdomen: Soft, no tenderness Skin: Dry, purplish hue to distal right foot, as noted to lower extremity Extremities: Right lower extremity edema and swelling which is tense from right mid thigh and extending to foot Neurologic: Alert and oriented X 3, no focal deficits noted Psychologic: Affect flat, judgement normal Current Patient Data Vital Signs Vital Signs Date Time Temp Pulse Resp B/P (MAP) Pulse Ox O2 Delivery O2 Flow Rate FiO2 05/16/19 11:45 98.3 95 18 97 Room Air Lab Results Laboratory Tests Test 05/16/19 12:14 White Blood Count 10.1 x10^3/uL (4.0-11.0) Red Blood Count 4.36 x10^6/uL (3.50-5.40) Hemoglobin 13.8 g/dL (12.0-15.5) Hematocrit 41.8 % (36.0-47.0) Mean Corpuscular Volume 96 fL (79-100) Mean Corpuscular Hemoglobin 32 pg (25-35) Mean Corpuscular Hemoglobin Concent 33 g/dL (31-37) Red Cell Distribution Width 14.2 % (11.5-14.5) Platelet Count 157 x10^3/uL (140-400) Neutrophils (%) (Auto) 66 % (31-73) Lymphocytes (%) (Auto) 20 % (24-48) L Monocytes (%) (Auto) 12 % (0-9) H Eosinophils (%) (Auto) 1 % (0-3) Basophils (%) (Auto) 1 % (0-3) Neutrophils # (Auto) 6.7 x10^3uL (1.8-7.7) Lymphocytes # (Auto) 2.0 x10^3/uL (1.0-4.8) Monocytes # (Auto) 1.2 x10^3/uL (0.0-1.1) H Eosinophils # (Auto) 0.1 x10^3/uL (0.0-0.7) Basophils # (Auto) 0.1 x10^3/uL (0.0-0.2) Platelet Estimate Pending Erythrocyte Sedimentation Rate Pending Prothrombin Time 9.3 SEC (9.4-11.4) L Prothrombin Time INR 0.9 (0.9-1.1) Activated Partial Thromboplast Time 25 SEC (23-33) Sodium Level 135 mmol/L (136-145) L Potassium Level 3.8 mmol/L (3.5-5.1) Chloride Level 98 mmol/L (98-107) Carbon Dioxide Level 26 mmol/L (21-32) Anion Gap 11 (6-14) Blood Urea Nitrogen 21 mg/dL (7-20) H Creatinine 1.5 mg/dL (0.6-1.0) H Estimated GFR (Cockcroft-Gault) 34.5 BUN/Creatinine Ratio 14 (6-20) Glucose Level 357 mg/dL (70-99) H Lactic Acid Level 3.1 mmol/L (0.4-2.0) H Calcium Level 9.7 mg/dL (8.5-10.1) Magnesium Level 1.9 mg/dL (1.8-2.4) Total Bilirubin 0.3 mg/dL (0.2-1.0) Aspartate Amino Transferase (AST) 15 U/L (15-37) Alanine Aminotransferase (ALT) 8 U/L (14-59) L Alkaline Phosphatase 67 U/L (46-116) C-Reactive Protein 24.3 mg/L (0-3.3) H Total Protein 7.4 g/dL (6.4-8.2) Albumin 2.9 g/dL (3.4-5.0) L Albumin/Globulin Ratio 0.6 (1.0-1.7) L EKG EKG [] Radiology/Procedures Radiology/Procedures PROCEDURE: DUPLEX LOWER EX ARTERIAL RIGHT Right lower extremity arterial Doppler 05/16/2019 INDICATION: Swelling and pain of the right lower extremity with decreased pulses. COMPARISON: Bilateral lower extremity arterial Doppler 10/19/2016 TECHNIQUE: Sonographic evaluation of the right lower extremity arterial system was performed utilizing grayscale, color Doppler and spectral waveform analysis. FINDINGS: Right: Biphasic waveforms are identified throughout the right lower extremity suggestive of at least mild peripheral vascular disease. Waveforms were previously triphasic in October 19, 2016. Evaluation is limited by degree of edema with poor visualization of certainty vessels. Common femoral artery: 153 cm/s Profunda artery: 79 cm/s Superficial femoral artery, proximal: 115 cm/s Superficial femoral artery, mid: 71 cm/s Superficial femoral artery, distal: 83 cm/s Popliteal artery: 63 cm/s Posterior tibial artery: 40 cm/s with proximal posterior tibial artery not well visualized. Anterior tibial artery : Not visualized Dorsalis pedis artery: 37 cm/s IMPRESSION: Biphasic waveforms are identified at the right lower extremity with poor visualization of the proximal posterior tibial artery and anterior tibial artery. Wave forms are noted within the dorsalis pedis artery. Findings favor mild to moderate peripheral vascular disease, progressed since 10/19/2016. Electronically signed by: Marlene Thibodeaux MD (05/16/2019 1:08 PM) [facility] Course & Med Decision Making Course & Med Decision Making Pertinent Labs and Imaging studies reviewed. (See chart for details) Patient presents from long-term with report of right lower extremity swelling and tenderness which is been ongoing for several days. History of recent x-ray imaging which noted some arthritis to right foot and knee. Significant swelling with purplish hue noted to leg. Leg also tenths. Concern for vascular occlusion. Venous Doppler positive for DVT to right femoral vein extending into popliteal vein. Arterial Doppler with some peripheral vascular disease but otherwise good flow. Labs obtained and posted to chart. Hyperglycemia noted and addressed. Lactic acid also appreciated. Patient does not meet SIRS criteria and without source of infection. IVF hydration given. Patient requiring admission for further evaluation and treatment. Discussed with Dr. Workman (hospitalist) who is in agreement with admission. requests Eliquis. Eliquis provided. Discussed findings and plan with patient and family, who acknowledge understanding and agreement. Dragon Disclaimer Dragon Disclaimer This electronic medical record was generated, in whole or in part, using a voice recognition dictation system. Departure Departure: Impression: Primary Impression: DVT (deep venous thrombosis) Additional Impressions: Lactic acidosis Hyperglycemia Disposition: ADMITTED INPATIENT Admitting Physician: Tomás Workman Condition: GUARDED Referrals: LUIS DANIEL SOTO MD (PCP) Critical Care Time Critical care time was 30 minutes which includes time at bedside, spent in discussion of patient's care with specialists and/or family members, with interpretation of laboratory and/or radiological studies and is exclusive of procedures. Problem Qualifiers Primary Impression: DVT (deep venous thrombosis) DVT location: lower extremity Affected thrombotic vein of extremity: femoral Chronicity: acute Laterality: right Qualified Codes: I82.411 - Acute embolism and thrombosis of right femoral vein EMILY JOHNSON DO May 16, 2019 13:17
[2019-05-16 13:22] LABS: % BANDS 3 % (0-9); % BASOS 0 % (0-3); % EOS 2 % (0-5); % LYMPHS 25 % (24-48); % MONOS 7 % (0-10); % SEGS 63 % (35-66); PLT ESTIMATE DECREASED (ADEQUATE)
--- NOTE | 2019-05-16 14:03 | RAD ---
Exam: VENOUS LOWER EXTREMITY RIGHT Indication: Right lower extremity pain and swelling Technique: Color-flow and pulsed wave duplex ultrasound with compression of venous structures of the right lower extremity. Comparison: None Available. Findings: Occlusive thrombus in the right common femoral vein extending down through the popliteal vein. The posterior tibial veins appear patent. Impression: Positive for right lower extremity DVT. Electronically signed by: Aron Richey MD (05/16/2019 2:00 PM) [id number]
[2019-05-16 14:04] LABS: SEDIMENTATION RATE 9 (0-25)
[2019-05-16] MEDS ORDERED: DEXTROSE 50% 25 GM / 50ML DISP.SYRIN. IV PRN (14:30)
[2019-05-16] MEDS ORDERED: ONDANSETRON PF 4 MG/2 ML VIAL. IV PRN (14:30)
[2019-05-16] MEDS ORDERED: IV NORMAL SALINE 1,000ML 1,000 ML IV ONE (14:45)
[2019-05-16] MEDS ORDERED: APIXABAN 5 MG TABLET. PO SCH (15:00)
[2019-05-16] MEDS ORDERED: INSULIN REGULAR 100 UNIT/ML 3ML VIAL. SQ ONE (15:00)
[2019-05-16 15:03] LABS: VAL ACID 83 mcg/mL (50-100)
[2019-05-16] MEDS ORDERED: CITA20TA9 PO (15:46)
[2019-05-16] MEDS ORDERED: PALI6TAB3 PO (15:46)
[2019-05-16] MEDS ORDERED: FAMO-63 PO (15:46)
[2019-05-16 16:00] VITALS: BP 83/59
[2019-05-16] MEDS: APIXABAN 5 MG TABLET. PO SCH ×2 (16:00→21:05)
[2019-05-16 16:16] VITALS: BP 107/69
[2019-05-16] MEDS: INSULIN LISPRO 300 UNITS/3 ML VIAL. SQ SCH (17:35)
[2019-05-16 19:33] VITALS: BP 98/61
[2019-05-16 23:07] VITALS: BP 112/74
[2019-05-17] MEDS: NYSTATIN TOPICAL POWDER 15GM BOTTLE. TP PRN ×2 (01:59→08:28)
[2019-05-17 05:48] VITALS: BP 123/57
[2019-05-17] MEDS: APIXABAN 5 MG TABLET. PO SCH ×2 (08:29→21:51)
[2019-05-17] MEDS: INSULIN LISPRO 300 UNITS/3 ML VIAL. SQ SCH ×3 (08:33→17:19)
[2019-05-17 10:45] VITALS: BP 113/76
[2019-05-17 15:17] VITALS: BP 126/77
[2019-05-17] MEDS ORDERED: IOHEXOL 240 MG/ML 50ML VIAL. ONE (16:05)
[2019-05-17] MEDS ORDERED: BISACODYL TAB 5 MG TABLET.DR. PO PRN (16:15)
[2019-05-17] MEDS ORDERED: NAPROXEN 500 MG TABLET PO PRN (16:15)
[2019-05-17] MEDS ORDERED: MAG HYDROX/AL HYDROX/SIMETH 30 ML ORAL.SUSP PO PRN (16:15)
[2019-05-17] MEDS ORDERED: MAGNESIUM HYDROXIDE 2,400 MG/30 ML ORAL.SUSP. PO PRN (16:15)
[2019-05-17] MEDS ORDERED: BISACODYL 10 MG SUPP.RECT RC PRN (16:15)
[2019-05-17] MEDS ORDERED: CALCIUM CARBONATE 600 MG PO PRN (16:15)
--- NOTE | 2019-05-17 16:37 | HP ---
ADMIT DATE: 05/16/2019 HISTORY OF PRESENT ILLNESS: The patient is a 69-year-old female patient, a resident at [facility], who apparently presented with reported several day history of right lower extremity swelling and tenderness. Caregiver also reports a purplish hue to the foot. Denies any known trauma. The patient has recent x-rays of her right foot on 05/13/2019, which noted some minimal arthritis. She also has a history of right knee x-ray on 04/26/2019, which noted decreased joint space and lateral osteophytes. She has been treated with naproxen and Voltaren gel without much improvement. The patient denied any chest pain, shortness of breath, cough, phlegm, or hemoptysis, and she was sent to the Emergency Room as her right lower extremity was markedly more swollen than the left for possibility of cellulitis and/or DVT. Her lab work showed that she has no leukocytosis. The patient was afebrile and she did have mild impairment of her kidney function and marked hyperglycemia. Her lactic acid was high at 3.1; it came down to 1.6. She did have a right lower extremity DVT, which showed that she has an occlusive thrombus in the right common femoral vein extending down to the popliteal veins and posterior tibial veins appears patent. She did have bilateral lower extremity arterial Doppler ultrasound, which basically showed that the patient has biphasic waveforms identified at the right lower extremity with poor visualization of the proximal posterior tibial artery and anterior tibial waveforms are noted within the dorsalis pedis artery. Findings favor [id number] peripheral vascular disease progressed since 10/19/2016. She was admitted and was started on Eliquis 10 mg twice a day. She was also started on insulin sliding scale for hyperglycemia. PAST MEDICAL HISTORY: Significant for: 1. Bipolar disorder, unspecified. 2. Schizophrenia. 3. Glaucoma. 4. Adult failure to thrive. 5. Hypothyroidism. 6. Type 2 diabetes mellitus without complication. 7. Major depressive disorder. 8. Drug-induced tremor. 9. Insomnia. 10. Essential hypertension. 11. Gastroesophageal reflux disease. 12. Overactive bladder. PAST SURGICAL HISTORY: Unremarkable. ALLERGIES: She has no known drug allergies. FAMILY HISTORY: Noncontributory. SOCIAL HISTORY: She currently resides at [facility]. She is from her . She quit smoking. She does not drink alcohol or use any recreational drugs. She has a son and a daughter. Currently, she has been residing at [facility] for more than 2 years. REVIEW OF SYSTEMS: As per history of present illness. PHYSICAL EXAMINATION: GENERAL: On arrival to the Emergency Room, she looked well and was clearly in no apparent respiratory distress. No pallor, jaundice, cyanosis or thyromegaly. No jugular venous distention. No limb edema. VITAL SIGNS: Her heart rate was 95, blood pressure was 125/96, temperature was 98.3, respiratory rate was 18, and oxygen saturation was 97%. HEAD, EYES, EARS, NOSE, AND THROAT: Normocephalic, atraumatic. NECK: Supple. HEART: Showed normal first and second heart sounds. No gallop or murmur. CHEST: Clear to auscultation. No crepitation or rhonchi. ABDOMEN: Distended, soft, nontender. No guarding or rigidity. No organomegaly. All hernial orifice intact. Bowel sounds normal. NEUROLOGIC: She is awake, alert, responding appropriately. All cranial nerves are intact. EXTREMITIES: She moves her extremities without difficulty. Examination of right lower extremity showed it is markedly swollen. The swelling extends all the way to the groin area with purplish hue. LABORATORY DATA: Her lab work showed a white cell count of 10,100, hemoglobin 14, hematocrit 42, MCV 96, and platelet count of 157,000 with normal manual differential. Her sedimentation rate was only 9. Her chemistry showed a serum sodium 135, potassium 3.8, chloride 98, bicarbonate 26, anion gap of 11, BUN 21, creatinine 1.5, estimated GFR was 34 mL per minute. Her glucose was 357. Lactic acid was 3.1, calcium was 9.7, magnesium was 1.9. Total bilirubin, AST, ALT, alkaline phosphatase were normal. Her C-reactive protein was high at 24 mg/dL. Total protein was 7.4, albumin was 2.9. Her prothrombin time was 9.3, INR 0.9, aPTT was 25. Toxic screen showed valproic acid was 83 mcg/mL. ASSESSMENT AND PLAN: So, in summary, this is a 69-year-old female patient who was admitted with marked swelling with right lower extremity ultrasound showed that she has an occlusive thrombus extending from the right femoral vein all the way to the popliteal vein. She has a multitude of other medical problems including hypertension, type 2 diabetes, hypothyroidism, and gastroesophageal reflux disease. The patient has unprovoked deep venous thrombosis, raising the possibility that the patient might have underlying malignancy. I will arrange for her to have a CT scan of the chest, abdomen, and pelvis. Meanwhile, we will continue with all her medication and we will also continue with apixaban 10 mg twice a day. STACEY MOORE MD DR: TASHI/paresh JOB#: [id number] / [id number]
[2019-05-17] MEDS ORDERED: D MANNOSE 500 MG PO SCH (17:00)
[2019-05-17] MEDS ORDERED: CALCIUM CARBONATE 500 MG TAB.CHEW PO PRN (18:45)
[2019-05-17 20:20] VITALS: BP 116/62
[2019-05-17] MEDS: DIVALPROEX ER 500 MG TAB.ER.24H PO SCH (21:51)
[2019-05-17] MEDS: DIVALPROEX ER 250 MG TAB.ER.24H. PO SCH (21:52)
[2019-05-17] MEDS: BENZTROPINE MESYLATE 1 MG TABLET PO SCH (21:52)
[2019-05-17] MEDS ORDERED: INSULIN LISPRO 300 UNITS/3 ML VIAL. SQ ONE (22:20)
--- NOTE | 2019-05-17 23:31 | RAD ---
Exam: CT of chest, abdomen and pelvis without contrast INDICATION: Right lower extremity DVT TECHNIQUE: Sequential axial images through the chest, abdomen and pelvis obtained without IV contrast. Sagittal and coronal reformatted images were reconstructed from the axial data and reviewed. Comparisons: None FINDINGS: Visualized portions of the thyroid are unremarkable. No enlarged mediastinal lymph nodes. Heart size is normal. No pericardial effusion. Moderate coronary artery calcifications are noted. Thoracic aorta has a normal course and caliber. Pulmonary artery is not enlarged. Airways are patent. No consolidation or pneumothorax. No suspicious lung nodules are identified. Strandy opacities are noted at the lung bases, likely representing atelectasis. No pleural effusion or thickening. Evaluation of the abdominal organs is limited secondary to noncontrast technique. Liver, spleen, pancreas, and adrenals are unremarkable. Gallstone is noted gallbladder neck is otherwise unremarkable. No perinephric inflammation or hydronephrosis. No renal or ureteral calculi are identified. Bladder is distended and appears thin-walled. Uterus is not enlarged. No abnormal adnexal mass. Large and small bowel are unremarkable. No obstruction. No free intra-abdominal air or fluid. Appendix is not identified. Abdominal aorta has a normal course and caliber. No enlarged intra-abdominal lymph nodes are identified. Edema in the right lower extremity is noted. No suspicious osseous lesions or acute fractures. IMPRESSION: 1. Edema in the right lower extremity, likely related to known DVT. 2. No acute process identified within the chest, abdomen or pelvis. 3. Gallstone noted within the gallbladder. Exposure: One or more of the following in the visualized dose reduction techniques were utilized for this examination: 1. Automated exposure control 2. Adjustment of the MA and/or KV according to patient size 3. Use of iterative of reconstructive technique Electronically signed by: Meli Briones MD (05/17/2019 11:28 PM) [facility]
[2019-05-17 23:49] VITALS: BP 124/57
[2019-05-18] MEDS: LEVOTHYROXINE 125 MCG TABLET PO SCH (05:05)
[2019-05-18 05:19] VITALS: BP 111/76
[2019-05-18 07:16] LABS: ALBUMIN 2.4 g/dL (3.4-5.0); ALBUMIN/GLOBULIN RATIO 0.6 (1.0-1.7); ALK PHOS 54 U/L (46-116); ANION GAP 7 (6-14); AST (SGOT) 16 U/L (15-37); BLOOD UREA NITROGEN 16 mg/dL (7-20); BUN/CREATININE RATIO 16 (6-20); CALCIUM 9.3 mg/dL (8.5-10.1); CARBON DIOXIDE 27 mmol/L (21-32); CHLORIDE 102 mmol/L (98-107); GFR 55.1; GLUCOSE 186 mg/dL (70-99); POTASSIUM 4.3 mmol/L (3.5-5.1); SODIUM 136 mmol/L (136-145); TOTAL BILIRUBIN 0.3 mg/dL (0.2-1.0); TOTAL PROTEIN 6.5 g/dL (6.4-8.2)
[2019-05-18] MEDS ORDERED: POLYETHYLENE GLYCOL 3350 17 GM PACKET. PO PRN (07:30)
[2019-05-18 07:32] LABS: ALT (SGPT) < 6 U/L (14-59)
[2019-05-18] MEDS: FAMOTIDINE 20 MG TABLET PO SCH (08:43)
[2019-05-18] MEDS: FUROSEMIDE 40 MG TABLET PO SCH (08:43)
[2019-05-18] MEDS: GLIMEPIRIDE 2 MG TABLET PO SCH (08:43)
[2019-05-18] MEDS: CITALOPRAM 20 MG TABLET. PO SCH (08:44)
[2019-05-18] MEDS: BENZTROPINE MESYLATE 1 MG TABLET PO SCH ×2 (08:44→21:44)
[2019-05-18] MEDS: PALIPERIDONE 6 MG TAB.ER.24. PO SCH (08:44)
[2019-05-18] MEDS ORDERED: NON FORMULARY ITEM (Cranberry 400 MG) PO SCH (09:00)
[2019-05-18] MEDS: INSULIN LISPRO 300 UNITS/3 ML VIAL. SQ SCH ×3 (09:10→17:05)
[2019-05-18] MEDS: APIXABAN 5 MG TABLET. PO SCH ×2 (10:04→21:44)
[2019-05-18 12:43] LABS: HEMATOCRIT 39.9 % (36.0-47.0); HEMOGLOBIN 13.3 g/dL (12.0-15.5); RED BLOOD COUNT 4.23 x10^6/uL (3.50-5.40); RED CELL DISTRIBUTION WIDTH 14.2 % (11.5-14.5); WHITE BLOOD COUNT 10.3 x10^3/uL (4.0-11.0)
[2019-05-18 18:27] VITALS: BP 111/76
[2019-05-18 19:53] VITALS: BP 110/67
[2019-05-18] MEDS ORDERED: INSULIN LISPRO 300 UNITS/3 ML VIAL. SQ SCH (21:00)
[2019-05-18] MEDS: ACETAMINOPHEN 325 MG TABLET PO PRN (21:43)
[2019-05-18] MEDS: DIVALPROEX ER 500 MG TAB.ER.24H PO SCH (21:43)
[2019-05-18] MEDS: DIVALPROEX ER 250 MG TAB.ER.24H. PO SCH (21:43)
[2019-05-18] MEDS ORDERED: INSULIN LISPRO 300 UNITS/3 ML VIAL. SQ ONE (22:15)
[2019-05-18 22:28] VITALS: BP 111/72
[2019-05-19 05:21] VITALS: BP 111/66
[2019-05-19] MEDS: LEVOTHYROXINE 125 MCG TABLET PO SCH (05:56)
[2019-05-19] MEDS: INSULIN LISPRO 300 UNITS/3 ML VIAL. SQ SCH (08:00)
[2019-05-19] MEDS: FAMOTIDINE 20 MG TABLET PO SCH (08:39)
[2019-05-19] MEDS: FUROSEMIDE 40 MG TABLET PO SCH (08:40)
[2019-05-19] MEDS: GLIMEPIRIDE 2 MG TABLET PO SCH (08:40)
[2019-05-19] MEDS: CITALOPRAM 20 MG TABLET. PO SCH (08:40)
[2019-05-19] MEDS: BENZTROPINE MESYLATE 1 MG TABLET PO SCH (08:41)
[2019-05-19] MEDS: PALIPERIDONE 6 MG TAB.ER.24. PO SCH (08:41)
[2019-05-19] MEDS: APIXABAN 5 MG TABLET. PO SCH (09:00)
[2019-05-19] MEDS: ACETAMINOPHEN 325 MG TABLET PO PRN (09:20)
[2019-05-19] MEDS ORDERED: APIX5TAB5 PO (10:13)
[2019-05-19] MEDS ORDERED: APIX5TAB3 PO (10:13)
--- NOTE | 2019-05-19 10:16 | DISCH ---
DISCHARGE ORDERS DISCHARGE DATE: May 19, 2019 FINAL DIAGNOSIS RLE DVT SCHZOPHRENIA CONDITION AT DISCHARGE: Stable Code Status: DNR/DNI SNF STAY <30 DAYS: Yes POST DISCHARGE ORDERS: ACTIVITY ORDERS: No restrictions, Resume previous activity WEIGHT BEARING STATUS: No restrictions, Full weight bearing DIET AFTER DISCHARGE: Regular CHECKS AFTER DISCHARGE: CHECKS AFTER DISCHARGE: Check blood sugar, ac/hs TREATMENT/EQUIPMENT ORDERS: ADAPTIVE EQUIPMENT NEEDED: None DISCHARGE MEDICATIONS: Home Meds Active Scripts Apixaban (Eliquis) 5 Mg Tab.ds.pk, 5 MG PO BID for DVT for 180 Days, #360 PKG Prov:STACEY MOORE MD 05/19/19 Apixaban (ELIQUIS) 5 Mg Tablet, 10 MG PO BID for DVT for 5 Days, #20 TAB Prov:STACEY MOORE MD 05/19/19 Reported Medications Famotidine (PEPCID) 20 Mg Tablet, 2 TAB PO DAILY for GERD, #60 TAB 3 Refills 05/16/19 Paliperidone (INVEGA) 6 Mg Tab.er.24, 1 TAB PO DAILYWBKFT for SCHIZOPHRENIA for 30 Days, #30 TAB 0 Refills 05/16/19 Citalopram Hydrobromide (CELEXA) 20 Mg Tablet, 1 TAB PO DAILY for DEP, #90 TAB 3 Refills 05/16/19 Calcium Carbonate (TUMS) 300 Mg Tab.chew, 600 MG PO PRN PRN for ACID, TAB.CHEW 02/28/19 Bisacodyl (BISACODYL) 10 Mg Supp.rect, 10 MG RC PRN DAILY PRN for CONSTIPATION, SUPP.RECT 0 Refills 02/28/19 Bisacodyl (BISACODYL) 5 Mg Tablet.dr, 5 MG PO PRN DAILY PRN for CONSTIPATION, TAB 0 Refills 02/28/19 Levothyroxine Sodium (LEVOTHYROXINE SODIUM) 125 Mcg Tablet, 1 TAB PO DAILY for THYROID, #30 TAB 5 Refills 02/28/19 D-Mannose (Mannxtra) 300 Gm Powder, 500 MG PO QID for RECURRENT UTI, MISC 02/28/19 Cranberry (CRANBERRY) 400 Mg Capsule, 400 MG PO DAILY for supplement, CAP 02/28/19 Benztropine Mesylate (BENZTROPINE MESYLATE) 1 Mg Tablet, 1 TAB PO BID for tremors, #60 TAB 7/24/19 Furosemide (FUROSEMIDE) 40 Mg Tablet, 40 MG PO DAILY, TAB 12/27/16 Divalproex Sodium (DIVALPROEX SODIUM ER) 250 Mg Tab.er.24h, 250 MG PO HS for Mood Stabilizer, TAB.SR Take with 1000mg dosage for a total dose of 1250mg. Give with food. DO NOT CRUSH OR CHEW! 12/15/16 Mag Hydrox/Al Hydrox/Simeth (ANTACID MAXIMUM STRENGTH LIQ) 355 Ml Oral.susp, 15 ML PO PRN AFTMEALHC PRN for DYSPEPSIA, LIQUID 12/15/16 Magnesium Hydroxide (MILK OF MAGNESIA) 400 Mg/5 Ml Oral.susp, 2400 MG PO PRN QHS PRN for CONSTIPATION 09/27/16 Nystatin (NYSTOP) 60 Gm Powder, 1 JEANNE TP PRN BID PRN for YEAST 09/22/16 Glimepiride (GLIMEPIRIDE) 4 Mg Tablet, 4 MG PO DAILY for Diabetes 09/13/16 Acetaminophen (TYLENOL) 325 Mg Tablet, 650 MG PO PRN Q6HRS PRN for PAIN / TEMP Max Acetaminophen dose is 4000mg in 24 hours from all sources for adults may resume as needed 07/04/15 Divalproex Sodium (DIVALPROEX SODIUM) 500 Mg Tablet.dr, 1000 MG PO HS for Mood stabilizer Total dose is 1250mg Give with food. DO NOT CRUSH OR CHEW! 02/12/14 Discontinued Reported Medications Escitalopram Oxalate (ESCITALOPRAM OXALATE) 10 Mg Tablet, 1 TAB PO DAILY for DEPRESSION, #30 TAB 3 Refills 02/28/19 Discontinued Scripts Naproxen (NAPROSYN) 500 Mg Tablet, 1 TAB PO BID PRN for PAIN, #20 TAB Prov:ROHINI BARRETO Jr. DO 10/02/18 STACEY MOORE MD May 19, 2019 10:16
--- NOTE | 2019-05-19 19:49 | DS ---
DATE OF DISCHARGE: 05/19/2019 HOSPITAL COURSE: The patient is resting, slightly propped up in bed, in no apparent distress, awake, alert. On questioning her, denied any complaint. Nursing staff did not voice any concerns, that she has an uneventful night. PHYSICAL EXAMINATION: GENERAL: When I examined her, she looked somewhat pale, but no jaundice, cyanosis, or thyromegaly. No jugular venous distention. No limb edema. VITAL SIGNS: Her heart rate was 71, blood pressure was 111/66, temperature was 97.6, respiratory rate was 20, and oxygen saturation was 92%. HEAD, EYES, EARS, NOSE, AND THROAT: Showed normocephalic, atraumatic. NECK: Supple. HEART: Showed normal first and second heart sounds. No gallop or murmur. CHEST: Clear to auscultation. No crepitation or rhonchi. ABDOMEN: Distended, soft, nontender. No guarding or rigidity. No organomegaly. All hernial orifices are intact. Bowel sounds normal. NEUROLOGIC: She was awake, alert, responding appropriately. All cranial nerves are intact. She moves extremities without difficulty. Her right lower extremity is definitely more swollen. Her intake and output were incompletely recorded. LABORATORY DATA: Her lab work showed that her blood sugar was reasonably controlled. Her white cell count was 10,300, hemoglobin 13, hematocrit 39, MCV 95, and platelet count of 155,000. Her serum sodium was 136, potassium 4.3, chloride 102, bicarbonate 27, anion gap of 7, BUN 16, creatinine 1, estimated GFR was 55 mL per minute, her glucose 186, calcium was 9.3. Total bilirubin, AST, ALT, and alkaline phosphatase were normal. Total protein was 6.5, albumin 2.4. DISCHARGE MEDICATIONS: She was discharged back to [facility] to continue on apixaban 10 mg twice a day for 5 more days and then apixaban 5 mg twice a day. She will continue on Tylenol 650 mg p.o. q. 6 hourly, benztropine mesylate 1 mg twice a day, bisacodyl tablets 5 mg once a day, bisacodyl 10 mg suppository rectally daily p.r.n. for constipation, calcium carbonate for Tums 600 mg before meals, citalopram hydrobromide for Celexa 20 mg once a day, cranberry 400 mg daily, Ranexa 500 mg 4 times a day, divalproex sodium 1000 mg at bedtime, divalproex 250 mg at bedtime, famotidine 40 mg daily, furosemide 40 mg once a day, glimepiride 4 mg once a day, levothyroxine sodium 125 mcg once a day, Maalox 15 mL after meals, milk of magnesia 30 mL p.o. daily p.r.n. for constipation, nystatin powder applied topically twice a day, paliperidone for Invega 6 mg daily with breakfast for schizophrenia. I did discontinue her naproxen as she is now high risk for bleeding given that she is on apixaban. FINAL DISCHARGE DIAGNOSES: 1. Right lower extremity deep vein thrombosis. 2. Other medical problems include: A. Hypothyroidism. B. Type 2 diabetes mellitus without complication. C. Glaucoma. D. Schizophrenia. E. Bipolar disorder. F. Major depressive disorder. G. Drug-induced tremor. H. Essential hypertension. I. Gastroesophageal reflux disease. J. Overactive bladder. STACEY MOORE MD DR: TASHI/paresh JOB#: [id number] / [id number]
== END 2019-05-19 10:30 | disposition home or self-care (01) | DRG 299 ==
LOC: ER 11:30 → 1 SOUTH 14:00
PROVIDERS: ADMIT Internal Medicine; ATTEND Internal Medicine
DX: I82.411 Acute embolism and thrombosis of right femoral vein (principal); E43 Unspecified severe protein-calorie malnutrition; E87.2 Acidosis; I82.431 Acute embolism and thrombosis of right popliteal vein; E11.51 Type 2 diabetes mellitus with diabetic peripheral angiopathy without gangrene; E11.65 Type 2 diabetes mellitus with hyperglycemia; I10 Essential (primary) hypertension; E03.9 Hypothyroidism, unspecified; F20.9 Schizophrenia, unspecified; F31.9 Bipolar disorder, unspecified; H40.9 Unspecified glaucoma; K21.9 Gastro-esophageal reflux disease without esophagitis; N32.81 Overactive bladder; Z79.01 Long term (current) use of anticoagulants; Z87.891 Personal history of nicotine dependence; G47.00 Insomnia, unspecified; R62.7 Adult failure to thrive; Z88.8 Allergy status to other drugs, medicaments and biological substances; G25.1 Drug-induced tremor; T50.905A Adverse effect of unspecified drugs, medicaments and biological substances, initial encounter; Y92.89 Other specified places as the place of occurrence of the external cause; Z68.31 Body mass index [BMI] 31.0-31.9, adult
CPT/HCPCS: 36415; 71250; 74176; 80053; 80164; 82947; 83605; 83735; 85007; 85025; 85027; 85610; 85651; 85730; 86140; 93926; 93971; 96372; 96374; J1815; J3010; 99285-25; J7030

== ENCOUNTER 2019-05-24 09:13 | Emergency (ER) | payer MEDICARE, BC, OTHER ==
[~2019-05-24] VITALS: Ht 170.2 cm; Wt 197.4 kg
[~2019-05-24 09:13] MED LIST changes: +APIX5TAB3 PO; +APIX5TAB5 PO; +CITA20TA9 PO; +FAMO-63 PO; +PALI6TAB3 PO
--- NOTE | 2019-05-24 09:30 | PHYS DOC ---
Past History Past Medical History: Bipolar, Depression, Diabetes, GERD, Glaucoma, Hypertension, Hypothyroid, Schizophrenia Past Surgical History: No Surgical History Smoking: Quit Greater Than 1 Year Alcohol Use: None Drug Use: None Adult General Chief Complaint Chief Complaint: LOWER EXTREMITY SWELLING HPI HPI 69-year-old female presents from residential with concern for worsening swelling and discoloration to RLE at site of known DVT. Patient had been initially seen and diagnosed in ED at [place] on 05/16/19 and started on Eliquis. Patient had been discharged on 05/19/19. Denies known trauma. Denies chest pain. Denies shortness of air. Denies any fever or chills. Review of Systems Review of Systems Constitutional: Denies fever or chills Eyes: Denies redness or eye pain HENT: Denies nasal congestion or sore throat Respiratory: Denies cough or shortness of breath Cardiovascular: Denies chest pain or palpitations GI: Denies abdominal pain, nausea, or vomiting : Denies dysuria or hematuria Musculoskeletal: RLE swelling and tenderness, denies back pain Integument: Reports discoloration to RLE Neurologic: Denies headache, focal weakness or sensory changes Complete systems were reviewed and found to be within normal limits, except as documented in this note. Allergies Allergies Allergies Coded Allergies Type Severity Reaction Last Updated Verified quetiapine Allergy Intermediate 03/01/19 Yes Physical Exam Physical Exam Constitutional: Well developed, well nourished, no acute distress, non-toxic appearance HENT: Normocephalic, atraumatic, oropharynx moist Eyes: Conjunctiva normal, no discharge Neck: Normal range of motion, no tenderness, supple Cardiovascular: Heart rate normal, regular rhythm Lungs & Thorax: Bilateral breath sounds clear to auscultation, no wheezing Abdomen: Soft, no tenderness Skin: Dry, purplish hue to distal right foot with swelling (see below), BLE cool to touch Extremities: RLE 2+ edema which is tense and extends from right mid thigh to foot Neurologic: Alert and oriented X 3, no focal deficits noted Psychologic: Affect flat, judgement normal EKG EKG [] Radiology/Procedures Radiology/Procedures PROCEDURE: VENOUS LOWER EXT BILATERAL Examination: VENOUS LOWER EXT BILATERAL History: Right lower extremity swelling which has progressively worsened Comparison/Correlation: 05/16/2019 venous ultrasound exam FINDINGS: Bilateral lower extremity duplex venous ultrasound exam was performed. Grayscale, color Doppler, and spectral Doppler imaging was performed. Compression and augmentation was performed. The right common femoral vein, superficial femoral vein, and deep femoral vein have occlusive thrombus. The popliteal vein, posterior tibial veins and greater saphenous vein are normal with no evidence of deep venous thrombus. The left common femoral vein, superficial femoral vein, popliteal vein, and minimally visualized greater saphenous vein are normal with no evidence of deep venous thrombus. Normal compressibility and augmentation is evident. IMPRESSION: Known occlusive thrombus involving the proximal right lower extremity deep venous system at the common femoral, superficial, deep femoral veins is again seen. Decreased thrombus involvement of the popliteal venous level is evident in the interval. No evidence of left lower extremity deep venous thrombus. Electronically signed by: Shahzad Phoenix MD (05/24/2019 10:40 AM) [facility] Course & Med Decision Making Course & Med Decision Making Pertinent Labs and Imaging studies reviewed. (See chart for details) Patient with known DVT to right lower extremity presents with concern for worsening of swelling and discoloration. Patient had been seen and diagnosed on 05/16/2019 and admitted to the hospital. Patient discharged on 05/19/2019 after treatment with Eliquis. Extremity appears similar to prior on physical exam. Labs obtained and posted to chart. Venous Doppler repeated with some interval improvement. Patient stable for discharge with outpatient follow-up with PCP. Discussed findings and plan with patient, who acknowledges understanding and agreement. Dragon Disclaimer Dragon Disclaimer This electronic medical record was generated, in whole or in part, using a voice recognition dictation system. Departure Departure: Impression: Primary Impression: Deep vein thrombosis (DVT) of femoral vein of right lower extremity Disposition: HOME, SELF-CARE (back pain to ECF) Condition: STABLE Referrals: LUIS DANIEL SOTO MD (PCP) Patient Instructions: Deep Vein Thrombosis Additional Instructions: Continue previously prescribed Eliquis Problem Qualifiers Primary Impression: Deep vein thrombosis (DVT) of femoral vein of right lower extremity Chronicity: acute Qualified Codes: I82.411 - Acute embolism and thrombosis of right femoral vein EMILY JOHNSON DO May 24, 2019 09:30
[2019-05-24 09:59] LABS: BASO % 1 % (0-3); EOS # 0.3 x10^3/uL (0.0-0.7); EOS % 4 % (0-3); HEMATOCRIT 39.9 % (36.0-47.0); LYMPH # 2.6 x10^3/uL (1.0-4.8); LYMPH % 38 % (24-48); MEAN CORPUSCULAR HEMOGLOBIN 31 pg (25-35); MEAN CORPUSCULAR HGB CONC 33 g/dL (31-37); MEAN CORPUSCULAR VOLUME 96 fL (79-100); MONO # 0.7 x10^3/uL (0.0-1.1); MONO % 10 % (0-9); NEUT # 3.3 x10^3uL (1.8-7.7); NEUT % 48 % (31-73); PLATELET COUNT 256 x10^3/uL (140-400); RED BLOOD COUNT 4.17 x10^6/uL (3.50-5.40); RED CELL DISTRIBUTION WIDTH 14.5 % (11.5-14.5); WHITE BLOOD COUNT 6.9 x10^3/uL (4.0-11.0)
[2019-05-24 10:07] LABS: ALBUMIN 2.4 g/dL (3.4-5.0); ALBUMIN/GLOBULIN RATIO 0.6 (1.0-1.7); CALCIUM 9.2 mg/dL (8.5-10.1); CREATININE 1.2 mg/dL (0.6-1.0); GFR 44.7; MAGNESIUM 1.9 mg/dL (1.8-2.4); POTASSIUM 4.3 mmol/L (3.5-5.1); TOTAL BILIRUBIN 0.1 mg/dL (0.2-1.0); TOTAL PROTEIN 6.7 g/dL (6.4-8.2)
--- NOTE | 2019-05-24 10:43 | RAD ---
Examination: VENOUS LOWER EXT BILATERAL History: Right lower extremity swelling which has progressively worsened Comparison/Correlation: 05/16/2019 venous ultrasound exam FINDINGS: Bilateral lower extremity duplex venous ultrasound exam was performed. Grayscale, color Doppler, and spectral Doppler imaging was performed. Compression and augmentation was performed. The right common femoral vein, superficial femoral vein, and deep femoral vein have occlusive thrombus. The popliteal vein, posterior tibial veins and greater saphenous vein are normal with no evidence of deep venous thrombus. The left common femoral vein, superficial femoral vein, popliteal vein, and minimally visualized greater saphenous vein are normal with no evidence of deep venous thrombus. Normal compressibility and augmentation is evident. IMPRESSION: Known occlusive thrombus involving the proximal right lower extremity deep venous system at the common femoral, superficial, deep femoral veins is again seen. Decreased thrombus involvement of the popliteal venous level is evident in the interval. No evidence of left lower extremity deep venous thrombus. Electronically signed by: Shahzad Phoenix MD (05/24/2019 10:40 AM) [facility]
[2019-05-24 11:27] VITALS: BP 113/80
[2019-05-24 12:33] LABS: % ATYL 3 % (0-0); % BANDS 1 % (0-9); % EOS 6 % (0-5); % LYMPHS 39 % (24-48); % MONOS 10 % (0-10); % SEGS 41 % (35-66); PLT ESTIMATE ADEQUATE (ADEQUATE)
== END 2019-05-24 11:49 | disposition home or self-care (01) ==
LOC: ER 09:13
DX: I82.411 Acute embolism and thrombosis of right femoral vein (principal); K21.9 Gastro-esophageal reflux disease without esophagitis; I10 Essential (primary) hypertension; E03.9 Hypothyroidism, unspecified; F20.9 Schizophrenia, unspecified; Z87.891 Personal history of nicotine dependence; Z88.8 Allergy status to other drugs, medicaments and biological substances
CPT/HCPCS: 36415; 80053; 83735; 85007; 85025; 85610; 85730; 93970; 99285-25

== ENCOUNTER 2020-07-12 03:31 | Inpatient (IN) | payer MEDICARE, BC, OTHER ==
[~2020-07-12] VITALS: Ht 170.2 cm; Wt 85.0 kg
[~2020-07-12 03:31] MED LIST changes: -ERTA1VIA IJ; +ERTA1VIA16 IJ; +FLUO20CA20 PO; -FLUO20CA8 PO; -GLIM4TAB4 PO; +GLIM4TAB8 PO; -MAGN2400 PO; +MAGN24003 PO; +MAGN296S68 PO; -MAGN296S9 PO; -OMEP20CA10 PO; +OMEP20CA16 PO; -OXYB10TA2 PO; +OXYB10TA26 PO; -PANT40TA5 PO; +PANT40TA6 PO; -RISP0.5T3 PO; +RISP0.5T62 PO; -RISP1TAB3 PO; +RISP1TAB88 PO; +SENN-182 PO; -SENN-80 PO; +TRAZ-125 PO; -TRAZ-86 PO
--- NOTE | 2020-07-12 03:46 | PHYS DOC ---
Past History Past Medical History: Bipolar, Depression, Diabetes, GERD, Glaucoma, Hypertension, Hypothyroid, Schizophrenia, UTI (EDISON BENITEZ MD) Past Surgical History: Other Additional Past Surgical Histo: NECK SURGERY (EDISON BENITEZ MD) Smoking: Quit Greater Than 1 Year Alcohol Use: None Drug Use: None (EDISON BENITEZ MD) General Adult HPI: HPI: " They said she is COVID positive and has been non-responsive the last 24hrs Patient is a 70 year old female who presents with above hx per paramedics. Pt. is a resident of [facility] [place] since 05/19/19. Patient has been reportedly Covid positive as of 2 weeks ago and has not been responsive for the past 24 hrs. . Patient has past diagnoses of failure to thrive, bipolar disorder, drug-induced tremor, essential hypertension, glaucoma, insomnia, major depressive disorder, repeated falls, diabetes, embolism and thrombosis of arteries of lower extremities, GERD, hypothyroidism, dysfunctional bladder, schizophrenia, cataracts, and de condition. No call from [facility] as to the problems they want addressed. Discussed presentation, testing and tx. plan with Dr. Soto. Advised to get baseline labs and urine. If no UTI or specific other problem transfer back to [facility]. If UTI admitted for hydration and antibiotics. Pt. follows with Dr. Soto. (EDISON BENITEZ MD) Review of Systems: Review of Systems: ROS only per SD Mental status change (EDISON BENITEZ MD) Family History: Family History: Not currently available (EDISON BENITEZ MD) Current Medications: Current Meds: See nursing for [facility] meds (EDISON BENITEZ MD) Allergies: Allergies: Allergies Coded Allergies Type Severity Reaction Last Updated Verified quetiapine Allergy Intermediate 03/01/19 Yes (EDISON BENITEZ MD) Physical Exam: PE: Constitutional: , no acute distress, ill appearance. [] HENT: Normocephalic, atraumatic, bilateral external ears normal, oropharynx dry, no oral exudates, nose normal. [] Eyes: PERRLA, EOMI, conjunctiva normal, no discharge. Matted eyes Neck: Trachea midline. Old surgery scars. Cardiovascular: Tachycardia heart rate, irregular rhythm, no murmur [] Lungs & Thorax: Bilateral breath sounds equal apex and bilateral basilar crackles and wheezes auscultation [] Abdomen: Bowel sounds decreased, soft, no tenderness, no masses, no pulsatile masses. Distended Skin: Warm, dry, no erythema, no rash. Poor turgor Back: No tenderness, no CVA tenderness. [] Extremities: Lower legs stiff. Some cross reaction with noxious stimuli. Neurologic: Moves extremities only to noxious stimuli (EDISON BENITEZ MD) EKG: EKG: My interpretation EKG shows a irregular tachycardia 135 bpm. Appears to have multiple P wave formations. (EDISON BENITEZ MD) Radiology/Procedures: Radiology/Procedures: [[address] [address] IMAGING REPORT Signed PATIENT: ISABEL ADAMES ACCOUNT: [id number] : 1950 LOCATION: ER AGE: 70 SEX: F EXAM STATUS: REG ER ORD. PHYSICIAN: EDISON BENITEZ MD REASON: mental status change, hx of falls. , + COVID PROCEDURE: CT HEAD AND CERVICAL SPINE WO CT HEAD AND CERVICAL SPINE WO Date: 07/12/2020 5:34 AM Clinical Indication: Reason: mental status change, hx of falls. , + COVID / Spl. Instructions: / History: Comparison: 10/02/2018. Technique: 5 mm axial tomographic images were obtained of the head without contrast. These were viewed on brain and bone windows. Noncontrast CT of the cervical spine was performed. Sagittal and coronal reformats were performed and evaluated. One or more of the following dose reduction techniques were utilized: Automated exposure control (AEC), Adjustment of mA and/or kV according to patient size, Use of iterative reconstruction technique such as ASiR, CT scan done according to ALARA and image gently/image wisely HEAD FINDINGS: Mild generalized cerebral and cerebellar volume loss. Mild nonspecific periventricular hypoattenuation, most commonly seen with chronic small vessel ischemic disease. No intra- or extra-axial mass or fluid collection. No acute hemorrhage. The ventricles are normal in size, shape, and morphology. The oro-white matter junction is normal. The basilar cisterns are patent. The visualized paranasal sinuses are normal. The visualized portions of the orbits and globes are normal. The mastoid air cells are clear. No aggressive osseous lesion or fracture. CERVICAL SPINE FINDINGS: Reversal of the cervical lordosis centered at C5. No acute fracture. No aggressive lytic or blastic osseous lesions. Moderate to severe multilevel degenerative disc space height loss. Multilevel mild and moderate spinal canal stenosis secondary to disc protrusions and marginal osteophytes. Multilevel moderate neuroforaminal narrowing secondary to uncovertebral arthrosis. Multilevel moderate to severe facet arthrosis with osseous fusion across multiple facet joints. The thyroid gland is atrophic. No cervical lymphadenopathy. Bilateral carotid atherosclerosis. The visualized aerodigestive tract is normal. The visualized portions of the lungs are clear. IMPRESSION: 1. No acute intracranial process. 2. No acute cervical spine fracture. Electronically signed by: Nori Richey MD (07/12/2020 6:27 AM) [facility] DICTATED AND SIGNED BY: NORI RICHEY MD DATE: 07/12/20626 CC: EDISON BENITEZ MD; LUIS DANIEL SOTO MD ~[facility] 0 ][place] [address] IMAGING REPORT Signed PATIENT: ISABEL ADAMES ACCOUNT: [id number] : 1950 LOCATION: ER AGE: 70 SEX: F EXAM STATUS: REG ER ORD. PHYSICIAN: EDISON BENITEZ MD REASON: DYSPNEA, +COVID PROCEDURE: PORTABLE CHEST 1V PORTABLE CHEST 1V INDICATION: Reason: DYSPNEA, +COVID / Spl. Instructions: / History: . COMPARISON STUDY: 02/28/2019. FINDINGS: Lungs: Normal lung volume. Mild bibasilar patchy. The tracheobronchial tree and hilar structures are normal. Pleura: No pleural effusion or pneumothorax. Heart and Mediastinum: The cardiomediastinal silhouette is normal. The great vessels of the thorax are normal. IMPRESSION: Mild bibasilar opacities, which could represent subsegmental atelectasis or potentially an infectious process. Electronically signed by: Nori Richey MD (07/12/2020 5:13 AM) [facility] DICTATED AND SIGNED BY: NORI RICHEY MD DATE: 07/12/20512 CC: EDISON BENITEZ MD; LUIS DANIEL SOTO MD ~[facility] 0 (EDISON BENITEZ MD) Heart Score: HEART Score for Chest Pain: HEART Score for Chest Pain Response (Comments) Value History Slighlty/Non-Suspicious 0 ECG Nonspecific Repolarizatio 1 Age > 65 2 Risk Factors 1 or 2 Risk Factors 1 Total 4 Risk Factors: Risk Factors: DM, Current or recent (<one month) smoker, HTN, HLP, family history of CAD, obesity. Risk Scores: Score 0 - 3: 2.5% MACE over next 6 weeks - Discharge Home Score 4 - 6: 20.3% MACE over next 6 weeks - Admit for Clinical Observation Score 7 - 10: 72.7% MACE over next 6 weeks - Early Invasive Strategies (EDISON BENITEZ MD) Course & Med Decision Making: Course & Med Decision Making Pertinent Labs and Imaging studies reviewed. (See chart for details) Still waiting for electrolytes at 0730 hrs. Discussed presentation, testing and tx plan with Dr. Workman. Plan admit for anti biotic and hydration. Electrolytes pending at time of admit. Continued DNR status. Impression: 1. Hx. COVID + 2. Mental Status Change x 24 hrfs 3. Leukocytosis 16.3 4. Dehydration 5. Hx. of schizophrenia 6. Bibasilar atelectasis versus pneumonia 7. UTI. [] (EDISON BENITEZ MD) Course & Med Decision Making I received patient signout from off going physician, I reviewed patient's chart and ER work-up in its entirety Delayed laboratory results of elevated troponin brought to my attention. I immediately address this with excepting physician, Dr. Workman I subsequently contacted [facility] cardiology group for consultation. Joint decision to start on heparin drip and medically manage at this time, no acute indication for invasive intervention Patient transported up to [facility] prior to initiation of heparin drip. This decision will be communicated up to hospitalist and nursing staff that will be assuming care of patient (ALVARO JUAREZ DO) Melanie Disclaimer: Melanie Disclaimer: This electronic medical record was generated, in whole or in part, using a voice recognition dictation system. (EDISON BENITEZ MD) Departure Departure: Impression: Primary Impression: COVID-19 Additional Impressions: UTI (urinary tract infection) NSTEMI (non-ST elevated myocardial infarction) DNR (do not resuscitate) Disposition: 09 ADMITTED INPT THIS HOSP Admitting Physician: Tomás Workman (ALVARO JUAREZ DO) Condition: STABLE Referrals: LUIS DANIEL SOTO MD (PCP) Melanie Disclaimer This chart was dictated in whole or in part using Voice Recognition software in a busy, high-work load, and often noisy Emergency Department environment. It may contain unintended and wholly unrecognized errors or omissions. (EDISON BENITEZ MD) EDISON BENITEZ MD Jul 12, 2020 03:46 ALVARO JUAREZ DO Jul 12, 2020 08:45
[2020-07-12] MEDS ORDERED: IV RINGERS SOLUTION,LACTATED 1,000 ML IV SCH (04:00)
[2020-07-12] MEDS ORDERED: ACETAMINOPHEN 650 MG SUPP.RECT. PR ONE (04:30)
--- NOTE | 2020-07-12 05:16 | RAD ---
PORTABLE CHEST 1V INDICATION: Reason: DYSPNEA, +COVID / Spl. Instructions: / History: . COMPARISON STUDY: 02/28/2019. FINDINGS: Lungs: Normal lung volume. Mild bibasilar patchy. The tracheobronchial tree and hilar structures are normal. Pleura: No pleural effusion or pneumothorax. Heart and Mediastinum: The cardiomediastinal silhouette is normal. The great vessels of the thorax are normal. IMPRESSION: Mild bibasilar opacities, which could represent subsegmental atelectasis or potentially an infectious process. Electronically signed by: Aron Richey MD (07/12/2020 5:13 AM) [facility]
[2020-07-12] MEDS ORDERED: ASPIRIN RECTAL 300 MG SUPP. PR ONE (05:30)
[2020-07-12 06:03] LABS: BASO % 0 % (0-3); EOS % 0 % (0-3); HEMATOCRIT 51.8 % (36.0-47.0); HEMOGLOBIN 16.7 g/dL (12.0-15.5); LYMPH # 1.7 x10^3/uL (1.0-4.8); LYMPH % 10 % (24-48); MEAN CORPUSCULAR HEMOGLOBIN 32 pg (25-35); MEAN CORPUSCULAR HGB CONC 32 g/dL (31-37); MEAN CORPUSCULAR VOLUME 98 fL (79-100); MONO # 2.2 x10^3/uL (0.0-1.1); MONO % 14 % (0-9); NEUT # 12.4 x10^3uL (1.8-7.7); NEUT % 76 % (31-73); PLATELET COUNT 257 x10^3/uL (140-400); RED BLOOD COUNT 5.29 x10^6/uL (3.50-5.40); RED CELL DISTRIBUTION WIDTH 16.3 % (11.5-14.5); WHITE BLOOD COUNT 16.3 x10^3/uL (4.0-11.0)
[2020-07-12 06:20] LABS: CLARITY,URINE HAZY; COLOR,URINE YELLOW; GLUCOSE,URINE 100 mg/dL (NEG)
[2020-07-12 06:24] LABS: BACTERIA,URINE MANY /HPF (0-FEW); BILIRUBIN,URINE NEG (NEG); NITRITE,URINE NEG (NEG); RBC,URINE 20-40 /HPF (0-2); SQUAMOUS EPITHELIAL CELL,UR OCC /LPF; WBC,URINE >40 /HPF (0-4)
--- NOTE | 2020-07-12 06:30 | RAD ---
CT HEAD AND CERVICAL SPINE WO Date: 07/12/2020 5:34 AM Clinical Indication: Reason: mental status change, hx of falls. , + COVID / Spl. Instructions: / History: Comparison: 10/02/2018. Technique: 5 mm axial tomographic images were obtained of the head without contrast. These were viewed on brain and bone windows. Noncontrast CT of the cervical spine was performed. Sagittal and coronal reformats were performed and evaluated. One or more of the following dose reduction techniques were utilized: Automated exposure control (AEC), Adjustment of mA and/or kV according to patient size, Use of iterative reconstruction technique such as ASiR, CT scan done according to ALARA and image gently/image wisely HEAD FINDINGS: Mild generalized cerebral and cerebellar volume loss. Mild nonspecific periventricular hypoattenuation, most commonly seen with chronic small vessel ischemic disease. No intra- or extra-axial mass or fluid collection. No acute hemorrhage. The ventricles are normal in size, shape, and morphology. The oro-white matter junction is normal. The basilar cisterns are patent. The visualized paranasal sinuses are normal. The visualized portions of the orbits and globes are normal. The mastoid air cells are clear. No aggressive osseous lesion or fracture. CERVICAL SPINE FINDINGS: Reversal of the cervical lordosis centered at C5. No acute fracture. No aggressive lytic or blastic osseous lesions. Moderate to severe multilevel degenerative disc space height loss. Multilevel mild and moderate spinal canal stenosis secondary to disc protrusions and marginal osteophytes. Multilevel moderate neuroforaminal narrowing secondary to uncovertebral arthrosis. Multilevel moderate to severe facet arthrosis with osseous fusion across multiple facet joints. The thyroid gland is atrophic. No cervical lymphadenopathy. Bilateral carotid atherosclerosis. The visualized aerodigestive tract is normal. The visualized portions of the lungs are clear. IMPRESSION: 1. No acute intracranial process. 2. No acute cervical spine fracture. Electronically signed by: Aron Richey MD (07/12/2020 6:27 AM) [facility]
[2020-07-12 06:37] LABS: % BANDS 9 % (0-9); % LYMPHS 8 % (24-48); % MONOS 10 % (0-10); % SEGS 73 % (35-66); PLT ESTIMATE ADEQUATE (ADEQUATE)
[2020-07-12] MEDS ORDERED: ONDANSETRON PF 4 MG/2 ML VIAL. IVP PRN (06:45)
[2020-07-12] MEDS ORDERED: ASPIRIN RECTAL 300 MG SUPP. PR PRN (06:45)
[2020-07-12] MEDS ORDERED: IV NORMAL SALINE 250ML 250 ML ONE (06:53)
[2020-07-12] MEDS ORDERED: AZITHROMYCIN 500 MG VIAL. IV ONE (06:53)
[2020-07-12] MEDS ORDERED: AZITHROMYCIN 500 MG in IV NORMAL SALINE 250ML 250 ML IV ONE (07:00)
[2020-07-12] MEDS ORDERED: IV RINGERS SOLUTION,LACTATED 1,000 ML IV ONE ×2 (07:00→08:00)
[2020-07-12] MEDS ORDERED: cefTRIAXone IM 1 GM VIAL IM ONE (07:00)
[2020-07-12 08:00] LABS: ALBUMIN 2.9 g/dL (3.4-5.0); CALCIUM 10.1 mg/dL (8.5-10.1); CREATININE 2.3 mg/dL (0.6-1.0); POTASSIUM 4.1 mmol/L (3.5-5.1); TOTAL BILIRUBIN 1.2 mg/dL (0.2-1.0); TOTAL PROTEIN 7.6 g/dL (6.4-8.2)
[2020-07-12] MEDS: IPRATRPIUM/ALBUTEROL 0.5/2.5MG 3 ML NEBU. NEB SCH ×4 (08:00→20:00)
[2020-07-12 08:01] LABS: DIRECT BILIRUBIN 0.8 mg/dL (0.0-0.2); MAGNESIUM 2.8 mg/dL (1.8-2.4)
[2020-07-12 09:26] VITALS: BP 151/76
[2020-07-12] MEDS: ACETAMINOPHEN 650 MG SUPP.RECT. PR PRN (11:30)
[2020-07-12] MEDS ORDERED: DEXTROSE 50% 25 GM / 50ML DISP.SYRIN. IV PRN (13:30)
[2020-07-12 13:53] VITALS: BP 135/78
--- NOTE | 2020-07-12 14:07 | PDOC2 ---
CONSULT DOS: DATE: 07/12/20 TIME: 14:00 Reason for Consult: Elevated troponin Referring Physician: Dr. Workman Chief Complaint Patient nonresponsive for 24 hours. Source: Chart review Problem List Problems Medical Problems: (1) COVID-19 Status: Acute (2) DNR (do not resuscitate) Status: Acute (3) Mental status alteration Status: Acute (4) NSTEMI (non-ST elevated myocardial infarction) Status: Acute (5) UTI (urinary tract infection) Status: Acute History of Present Illness The patient is a 70-year-old resident of a local halfway who reportedly was nonresponsive for 24 hours and was transported to the emergency room for evaluation. She reportedly is Covid positive. Initial work-up showed a CT head scan that showed no acute intracranial processes. Chest x-ray showed mild bilateral opacities. Troponin was minimally elevated 0.363 and 0.299. The p atient was admitted for treatment with antibiotics and IV fluids for a probable urinary tract infection. At this time she remains nonresponsive. She has no clear cardiac history other than a history of hypertension. She does have a reported history of bipolar disorder and schizophrenia. Cardiovascular: HTN GI: GERD Psych: Bipolar, Schizophrenia Endocrine: Diabetes, Hypothyroidism Past Surgical History: Other (Previous neck surgery) Family History: Other (Not available.) Smoke: Quit ALCOHOL: none Current Medications Current Medications Lactated Ringer's 1,000 ml @ 1,000 mls/hr Q1H IV Last administered on 07/12/20at 05:19; Start 07/12/20 at 04:00; Stop 07/12/20 at 04:59; Status DC Acetaminophen (Tylenol Supp) 650 mg 1X ONCE LA Last administered on 07/12/20at 05:19; Start 07/12/20 at 04:30; Stop 07/12/20 at 04:31; Status DC Aspirin (Aspirin Rectal Supp) 300 mg 1X ONCE LA Last administered on 07/12/20at 05:19; Start 07/12/20 at 05:30; Stop 07/12/20 at 05:31; Status DC Ceftriaxone Sodium (Rocephin Im) 1 gm 1X ONCE IM Last administered on 1 09/12/19at 06:59; Start 07/12/20 at 07:00; Stop 07/12/20 at 07:01; Status DC Azithromycin 500 mg/Sodium Chloride 250 ml @ 250 mls/hr 1X ONCE IV Last administered on 07/12/20at 06:59; Start 07/12/20 at 07:00; Stop 07/12/20 at 07:59; Status DC Ondansetron HCl (Zofran) 4 mg PRN Q4HRS PRN IVP NAUSEA/VOMITING; Start 07/12/20 at 06:45; Stop 07/13/20 at 06:44 Albuterol/ Ipratropium (Duoneb) 3 ml RTQID NEB ; Start 07/12/20 at 08:00; Stop 07/13/20 at 07:59 Ceftriaxone Sodium 1 gm/ Sodium Chloride 50 ml @ 100 mls/hr DAILY IV ; Start 07/13/20 at 09:00; Stop 07/12/20 at 13:17; Status DC Azithromycin 250 mg/Sodium Chloride 250 ml @ 250 mls/hr DAILY IV ; Start 07/13/20 at 09:00 Acetaminophen (Tylenol Supp) 650 mg QIDPRN PRN LA FEVER Last administered on 07/12/20at 11:30; Start 07/12/20 at 06:45 Aspirin (Aspirin Rectal Supp) 300 mg QIDPRN PRN LA FEVER; Start 07/12/20 at 06:45; Stop 07/12/20 at 13:17; Status DC Lactated Ringer's 1,000 ml @ 200 mls/hr 1X ONCE IV ; Start 07/12/20 at 08:00; Stop 07/12/20 at 12:59; Status DC Lactated Ringer's 1,000 ml @ 1,000 mls/hr 1X ONCE IV Last administered on 07/12/20at 08:23; Start 07/12/20 at 07:00; Stop 07/12/20 at 07:59; Status DC Sodium Chloride 250 ml @ As Directed STK-MED ONCE .ROUTE ; Start 07/12/20 at 06:53; Stop 07/12/20 at 06:53; Status DC Azithromycin (Zithromax) 500 mg STK-MED ONCE IV ; Start 07/12/20 at 06:53; Stop 07/12/20 at 06:53; Status DC Piperacillin Sod/ Tazobactam Sod 2.25 gm/Sodium Chloride 50 ml @ 100 mls/hr Q8HRS IV ; Start 07/12/20 at 14:00 Insulin Human Lispro (HumaLOG) 0-7 UNITS Q6H SQ ; Start 07/12/20 at 13:30 Dextrose (Dextrose 50%-Water Syringe) 12.5 gm PRN Q15MIN PRN IV SEE COMMENTS; Start 07/12/20 at 13:30 Dextrose/Sodium Chloride 1,000 ml @ 100 mls/hr Q10H IV ; Start 07/12/20 at 13:30 Active Scripts Active Eliquis (Apixaban) 5 Mg Tab.ds.pk 5 Mg PO BID 180 Days Eliquis (Apixaban) 5 Mg Tablet 10 Mg PO BID 5 Days Reported Pepcid (Famotidine) 20 Mg Tablet 2 Tab PO DAILY Invega (Paliperidone) 6 Mg Tab.er.24 1 Tab PO DAILYWBKFT 30 Days Celexa (Citalopram Hydrobromide) 20 Mg Tablet 1 Tab PO DAILY Tums (Calcium Carbonate) 300 Mg Tab.chew 600 Mg PO PRN PRN Bisacodyl 10 Mg Supp.rect 10 Mg RC PRN DAILY PRN Bisacodyl 5 Mg Tablet.dr 5 Mg PO PRN DAILY PRN Levothyroxine Sodium 125 Mcg Tablet 1 Tab PO DAILY Mannxtra (D-Mannose) 300 Gm Powder 500 Mg PO QID Cranberry 400 Mg Capsule 400 Mg PO DAILY Benztropine Mesylate 1 Mg Tablet 1 Tab PO BID Furosemide 40 Mg Tablet 40 Mg PO DAILY Divalproex Sodium Er (Divalproex Sodium) 250 Mg Tab.er.24h 250 Mg PO HS Take with 1000mg dosage for a total dose of 1250mg. Give with food. DO NOT CRUSH OR CHEW! Antacid Maximum Strength Liq (Mag Hydrox/Al Hydrox/Simeth) 355 Ml Oral.susp 15 Ml PO PRN AFTMEALHC PRN Milk Of Magnesia (Magnesium Hydroxide) 400 Mg/5 Ml Oral.susp 2,400 Mg PO PRN QHS PRN Nystop (Nystatin) 60 Gm Powder 1 Gisselle TP PRN BID PRN Glimepiride 4 Mg Tablet 4 Mg PO DAILY Tylenol (Acetaminophen) 325 Mg Tablet 650 Mg PO PRN Q6HRS PRN Max Acetaminophen dose is 4000mg in 24 hours from all sources for adults may resume as needed Divalproex Sodium 500 Mg Tablet.dr 1,000 Mg PO HS Total dose is 1250mg Give with food. DO NOT CRUSH OR CHEW! Allergies: Coded Allergies: quetiapine (Verified Allergy, Intermediate, 03/01/19) Review of System The patient is nonresponsive. Physical Exam Visual examination as per Covid status. VITALS Vital Signs Date Time Temp Pulse Resp B/P (MAP) Pulse Ox O2 Delivery O2 Flow Rate FiO2 07/12/20 13:53 101.4 115 28 135/78 (97) 93 Nasal Cannula 5.0 Labs Laboratory Tests Test 07/12/20 04:20 07/12/20 04:45 07/12/20 09:52 07/12/20 13:05 Urine Collection Type U cath Urine Color Yellow Urine Clarity Hazy Urine pH 5.5 Urine Specific [place] 1.020 Urine Protein 100 mg/dl (NEG-TRACE) Urine Glucose (UA) 100 mg/dL (NEG) Urine Ketones (Stick) 15 mg/dL (NEG) Urine Blood Mod (NEG) Urine Nitrite Neg (NEG) Urine Bilirubin Neg (NEG) Urine Urobilinogen Dipstick 4.0 mg/dL (0.2 mg/dL) Urine Leukocyte Esterase Mod (NEG) Urine RBC 20-40 /HPF (0-2) Urine WBC >40 /HPF (0-4) Urine Squamous Epithelial Cells Occ /LPF Urine Bacteria Many /HPF (0-FEW) White Blood Count 16.3 x10^3/uL (4.0-11.0) Red Blood Count 5.29 x10^6/uL (3.50-5.40) Hemoglobin 16.7 g/dL (12.0-15.5) Hematocrit 51.8 % (36.0-47.0) Mean Corpuscular Volume 98 fL (79-100) Mean Corpuscular Hemoglobin 32 pg (25-35) Mean Corpuscular Hemoglobin Concent 32 g/dL (31-37) Red Cell Distribution Width 16.3 % (11.5-14.5) Platelet Count 257 x10^3/uL (140-400) Neutrophils (%) (Auto) 76 % (31-73) Lymphocytes (%) (Auto) 10 % (24-48) Monocytes (%) (Auto) 14 % (0-9) Eosinophils (%) (Auto) 0 % (0-3) Basophils (%) (Auto) 0 % (0-3) Neutrophils # (Auto) 12.4 x10^3uL (1.8-7.7) Lymphocytes # (Auto) 1.7 x10^3/uL (1.0-4.8) Monocytes # (Auto) 2.2 x10^3/uL (0.0-1.1) Eosinophils # (Auto) 0.0 x10^3/uL (0.0-0.7) Basophils # (Auto) 0.0 x10^3/uL (0.0-0.2) Segmented Neutrophils % 73 % (35-66) Band Neutrophils % 9 % (0-9) Lymphocytes % 8 % (24-48) Monocytes % 10 % (0-10) Platelet Estimate Adequate (ADEQUATE) D-Dimer (Merly) 0.58 mg/L (0.00-0.50) Sodium Level 145 mmol/L (136-145) Potassium Level 4.1 mmol/L (3.5-5.1) Chloride Level 107 mmol/L (98-107) Carbon Dioxide Level 27 mmol/L (21-32) Anion Gap 11 (6-14) Blood Urea Nitrogen 70 mg/dL (7-20) Creatinine 2.3 mg/dL (0.6-1.0) Estimated GFR (Cockcroft-Gault) 21.0 Glucose Level 324 mg/dL (70-99) Calcium Level 10.1 mg/dL (8.5-10.1) Magnesium Level 2.8 mg/dL (1.8-2.4) Total Bilirubin 1.2 mg/dL (0.2-1.0) Direct Bilirubin 0.8 mg/dL (0.0-0.2) Aspartate Amino Transf (AST/SGOT) 99 U/L (15-37) Alanine Aminotransferase (ALT/SGPT) 64 U/L (14-59) Alkaline Phosphatase 46 U/L (46-116) Creatine Kinase 723 U/L (26-192) Troponin I Quantitative 0.363 ng/mL (0-0.055) 0.299 ng/mL (0-0.055) RJ-Gzd-F-Type Natriuretic Peptide 1312 pg/mL (0-124) Total Protein 7.6 g/dL (6.4-8.2) Albumin 2.9 g/dL (3.4-5.0) Thyroid Stimulating Hormone (TSH) 3.665 uIU/mL (0.358-3.740) Bedside Troponin I 0.29 ng/ml (<0.08) Test 07/12/20 13:30 Glucose (Fingerstick) 349 mg/dL (70-99) Images CT head scan with no acute intracranial processes. Chest x-ray with mild bilateral opacities. Assessment/Plan 1. Covid positive patient. Nonrisk months of as above. Continue baseline Cov id treatment and precautions. 2. Urinary tract infection. IV antibiotics and fluids. 3. Minimally elevated troponin at 0.363 and 0.299. At this time will continue baseline medical treatment. Possible future echocardiogram based on Covid guidelines and patient's clinical course. 4. Hypertension. Continue present medications and monitor. 5. Diabetes mellitus. As per the primary service. 6. History of schizophrenia and bipolar disorder. We will continue present treatment. Thank you for allowing us to participate in the care of your patient. TITO PACHECO MD Jul 12, 2020 14:07
[2020-07-12] MEDS: IV DEXTROSE 5 %-0.2 % NACL 1,000 ML IV SCH ×2 (15:49→22:15)
[2020-07-12] MEDS: PIPERACILLIN/TAZOBACTAM 2.25 GM in IV NORMAL SALINE 50ML 50 ML IV SCH ×2 (15:49→22:14)
[2020-07-12] MEDS: INSULIN LISPRO 300 UNITS/3 ML VIAL. SQ SCH ×2 (15:51→18:03)
--- NOTE | 2020-07-12 18:44 | HP ---
ADMIT DATE: 07/12/2020 HISTORY OF PRESENT ILLNESS: The patient is a 70-year-old female patient, a resident at [facility], who was brought to the Emergency Room with altered mental status. According to the nursing staff there, she is normally awake, alert, nonverbal, but nods her head. She is able to feed herself and normally she is wheelchair bound; however, over the last 24 hours, the patient was unresponsive. She has been residing [facility]. She has been reportedly COVID positive starting about 2 weeks ago and has been unresponsive for the past 24 hours. 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 She was extensively evaluated in the Emergency Room and was admitted with: 1. Altered mental status. 2. COVID-19 pneumonia. 3. Acute hypoxic respiratory failure. She was also found to be dehydrated with questionable acute on chronic kidney injury. Her troponin was slightly elevated and she was seen by the cinder pit worker and was started on heparin drip. PAST MEDICAL HISTORY: Significant for adult failure to thrive. She has bipolar disorder, drug-induced tremor, essential primary hypertension, glaucoma, insomnia, major depressive disorder, recurrent. She has recurrent falls, type 2 diabetes mellitus without complication. PAST SURGICAL HISTORY: Unobtainable. ALLERGIES: She is allergic to SEROQUEL. MEDICATIONS: She is currently on following medications: She is on apixaban 5 mg twice a day, acetaminophen 650 mg every 6 hours, divalproex 1000 mg at bedtime, divalproex 250 mg at bedtime. She is on citalopram hydrobromide or Celexa 20 mg tablet once a day, paliperidone 6 mg tablet extended release or Invega 1 tablet once a day with breakfast, benztropine mesylate 1 mg tablet twice a day, furosemide 40 mg daily, calcium carbonate 600 mg daily. She is on Mylanta 15 mL after meals and as needed, bisacodyl 5 mg tablet once a day for constipation, bisacodyl 10 mg suppositories rectally daily p.r.n. for constipation, milk of magnesia 30 mL p.o. daily p.r.n. for constipation, famotidine 20 mg twice a day. She is on glimepiride 4 mg daily, levothyroxine 125 mcg once a day. She is on nystatin 60 g powder apply topically twice a day, cranberry 400 mg daily, D-mannose, ____ 500 mg 4 times a day. FAMILY HISTORY: Noncontributory. SOCIAL HISTORY: She is a resident at [facility] in [place], [place]. She apparently does not smoke, drink alcohol or use any recreational drugs. REVIEW OF SYSTEMS: Unobtainable. PHYSICAL EXAMINATION: GENERAL: On arrival to the Emergency Room, the patient was basically unresponsive even to painful stimuli. There was no pallor, jaundice, cyanosis, or thyromegaly. No jugular venous distension. No limb edema. VITAL SIGNS: Her heart rate on arrival was 115, blood pressure was 149/73, temperature was 98.5, respiratory rate was 32 and oxygen saturation was 95% on 15 liters of oxygen. HEAD, EYES, EARS, NOSE AND THROAT: Showed normocephalic, atraumatic. NECK: Supple. HEART: Showed normal first and second heart sounds. No gallop or murmur. CHEST: Clear to auscultation. No crepitation or rhonchi. ABDOMEN: Distended, soft, nontender. NEUROLOGIC: She has Jie coma scale of 3. Her right lower extremity seems to be shorter and externally rotated. LABORATORY DATA: Showed white cell count of 16,300, hemoglobin 16.7, hematocrit 52, MCV 98 and platelet count 257,000. Her chemistry showed a serum sodium 145, potassium 4.1, chloride 107, bicarbonate 27, anion gap of 11, BUN 70, creatinine was 2.3, estimated GFR was 21 mL per minute. Her glucose was 324, calcium was 10.1. Magnesium 2.8. Total bilirubin, AST and ALT are elevated. Alkaline phosphatase was normal. CK was slightly high at 223. Troponin was 0.363. Beta-natriuretic peptide was 1312, total protein was 7.6, albumin was 2.9. Her TSH was 3.665. Her D-dimer was 0.58. Urinalysis showed the urine was yellow, hazy with a pH of 5.5, specific gravity of 1.020. There was large amount of protein, moderate amount of glucose, trace of ketones, moderate amount of blood, negative for nitrite. There was moderate amount of leukocyte esterase, 20-40 rbc's, more than 40 wbc's, and many bacteria. Her chest x-ray showed normal lung volumes with mild bibasilar patches. She had tracheobronchial tree and hilar structures, normal sydni. No pleural effusion, no pneumothorax. The cardiomediastinal silhouette is normal. The great vessels of the thorax are normal. IMPRESSION: The patient has mild bibasilar opacities, which could represent subsegmental atelectasis or potentially an infectious process. Her CT scan of the head showed no acute intracranial process. No acute cervical spine fracture. The patient was admitted with altered mental status, urinary tract infection, probably healthcare-associated pneumonia, leukocytosis, acute perhaps some chronic kidney injury. The patient's kidney function was 1 mg on 05/18/2019. PLAN: To continue with IV fluid. I will broaden the spectrum of antibiotics and continue with IV fluid. We will put a Irwin catheter in and decide the further management according to her response. She is a DNR/DNI. STACEY MOORE MD DR: TASHI/paresh JOB#: [id number] / [id number]
[2020-07-12 18:56] VITALS: BP 134/79
[2020-07-12] MEDS: DEXAMETHASONE SOD PHOS 4 MG/ML VIAL. IVP SCH (22:14)
[2020-07-12 22:30] VITALS: BP 136/82
[2020-07-13] MEDS ORDERED: INSULIN LISPRO 300 UNITS/3 ML VIAL. SQ ONE ×2 (02:30→07:00)
[2020-07-13] MEDS: PIPERACILLIN/TAZOBACTAM 2.25 GM in IV NORMAL SALINE 50ML 50 ML IV SCH ×3 (06:00→21:56)
[2020-07-13 06:13] VITALS: BP 162/89
[2020-07-13] MEDS: INSULIN LISPRO 300 UNITS/3 ML VIAL. SQ SCH ×5 (07:00→21:54)
[2020-07-13] MEDS: ACETAMINOPHEN 650 MG SUPP.RECT. PR PRN (07:01)
[2020-07-13] MEDS ORDERED: AZITHROMYCIN 250 MG in IV NORMAL SALINE 250ML 250 ML IV SCH (09:00)
[2020-07-13 09:20] LABS: BASO % 0 % (0-3); EOS % 0 % (0-3); HEMATOCRIT 44.9 % (36.0-47.0); HEMOGLOBIN 14.4 g/dL (12.0-15.5); LYMPH # 1.4 x10^3/uL (1.0-4.8); LYMPH % 13 % (24-48); MEAN CORPUSCULAR HEMOGLOBIN 32 pg (25-35); MEAN CORPUSCULAR HGB CONC 32 g/dL (31-37); MEAN CORPUSCULAR VOLUME 99 fL (79-100); MONO # 0.5 x10^3/uL (0.0-1.1); MONO % 4 % (0-9); NEUT # 9.5 x10^3uL (1.8-7.7); NEUT % 83 % (31-73); PLATELET COUNT 193 x10^3/uL (140-400); RED BLOOD COUNT 4.55 x10^6/uL (3.50-5.40); RED CELL DISTRIBUTION WIDTH 16.4 % (11.5-14.5); WHITE BLOOD COUNT 11.4 x10^3/uL (4.0-11.0)
[2020-07-13 09:23] LABS: CALCIUM 9.5 mg/dL (8.5-10.1); CREATININE 1.6 mg/dL (0.6-1.0); POTASSIUM 3.9 mmol/L (3.5-5.1)
[2020-07-13] MEDS: IV DEXTROSE 5 %-0.2 % NACL 1,000 ML IV SCH (09:30)
[2020-07-13 10:09] VITALS: BP 148/96
[2020-07-13 14:00] VITALS: BP 173/73
[2020-07-13] MEDS: IV DEXTROSE 5% 1,000 ML IV SCH (15:18)
[2020-07-13] MEDS ORDERED: ACETAMINOPHEN 650 MG SUPP.RECT. PR PRN (16:00)
[2020-07-13 19:30] VITALS: BP 168/87
--- NOTE | 2020-07-13 20:59 | PN ---
DATE: 07/13/2020 SUBJECTIVE: The patient is resting, slightly propped up in bed, continued to be febrile; however, she seemed to be more responsive. She did open her eyes. PHYSICAL EXAMINATION: GENERAL: When I examined her, there was no pallor, jaundice, cyanosis or thyromegaly. No jugular venous distention. No lower limb edema. VITAL SIGNS: Her heart rate was 101, blood pressure was 173/73, temperature was 100.4, respiratory rate 20, and oxygen saturation was 94% on 5 liters of oxygen. HEAD, EYES, EARS, NOSE AND THROAT: Showed normocephalic, atraumatic. NECK: Supple. HEART: Showed normal first and second heart sounds. No gallop, rub or murmur. CHEST: Clear to auscultation. No crepitation or rhonchi. ABDOMEN: Distended, soft, nontender. No guarding or rigidity. No organomegaly. All hernial orifice intact. Bowel sounds normal. NEUROLOGIC: She apparently is nonverbal; however, she attempts to open her eyes and she did open her eyes when she was repositioned. Her intake over the last 24 hours was 1300, no output was recorded. LABORATORY DATA: Her lab work this morning showed white cell count is down to 11,400, hemoglobin 14, hematocrit 44, MCV 99 and platelet count of 193,000. Her chemistry showed that her serum sodium is actually higher and went up to 148 from 145, potassium 3.9, chloride 112, bicarbonate 28, anion gap of 8, BUN 44 and creatinine is 1.6 down from 2.3. Her glucose was extremely high at 408 and calcium was 9.5. Her D-dimer was 0.58 and urinalysis showed the urine was negative for nitrite; however, there is moderate amount of leukocyte esterase, 20-40 rbc's, more than 40 wbc's, and many bacteria. Her urine culture has grown greater than 100,000 colony forming units per mL of Aerococcus sanguinicola as well as Aerococcus urinae. ASSESSMENT: 1. Altered mental status. 2. COVID-19 pneumonia. 3. Urinary tract infection. 4. Acute hypoxic respiratory failure. 5. Hypertension. 6. Type 2 diabetes mellitus. 7. Drug-induced tremor. 8. Severe depression and anxiety. 9. Hypernatremia. PLAN: My plan is to discontinue the D5 quarter saline and switch her to D5W. We will tighten her blood sugar control. Continue meanwhile with the IV Zosyn and decide the further management accordingly. STACEY MOORE MD DR: TASHI/paresh JOB#: [id number] / [id number]
[2020-07-13] MEDS ORDERED: INSULIN GLARGINE SYRINGE. SQ SCH (21:00)
[2020-07-13] MEDS: DEXAMETHASONE SOD PHOS 4 MG/ML VIAL. IVP SCH (21:56)
[2020-07-13 23:10] VITALS: BP 132/79
[2020-07-14] MEDS: INSULIN LISPRO 300 UNITS/3 ML VIAL. SQ SCH ×8 (00:33→23:18)
[2020-07-14] MEDS: IV DEXTROSE 5% 1,000 ML IV SCH ×4 (03:42→23:57)
[2020-07-14] MEDS: PIPERACILLIN/TAZOBACTAM 2.25 GM in IV NORMAL SALINE 50ML 50 ML IV SCH ×3 (05:57→23:19)
[2020-07-14 06:20] VITALS: BP 134/78
[2020-07-14 07:02] LABS: ALBUMIN 2.1 g/dL (3.4-5.0); ALBUMIN/GLOBULIN RATIO 0.5 (1.0-1.7); CALCIUM 9.2 mg/dL (8.5-10.1); CREATININE 1.3 mg/dL (0.6-1.0); GFR 40.6; POTASSIUM 4.5 mmol/L (3.5-5.1); TOTAL BILIRUBIN 0.6 mg/dL (0.2-1.0); TOTAL PROTEIN 6.2 g/dL (6.4-8.2)
[2020-07-14 08:35] LABS: HEMATOCRIT 44.4 % (36.0-47.0); HEMOGLOBIN 13.9 g/dL (12.0-15.5); RED BLOOD COUNT 4.43 x10^6/uL (3.50-5.40); RED CELL DISTRIBUTION WIDTH 16.2 % (11.5-14.5); WHITE BLOOD COUNT 12.9 x10^3/uL (4.0-11.0)
--- NOTE | 2020-07-14 08:51 | EKG ---
[address] [address] Test Date: 2020-07-12 Test Time: 04:50:17 Pat Name: ISABEL ADAMES Department: Room: 123 A Gender: F Manager Managing: ANASTASIIA : 1950 Requested By: EDISON BENITEZ Order Number: [id number] Reading MD: Measurements Intervals [place] Rate: 134 P: AR: QRS: 42 QRSD: 78 T: 30 QT: 344 QTc: 513 Interpretive Statements IRREGULAR RHYTHM, NO P-WAVE FOUND OTHERWISE NORMAL ECG RI6.02 No previous ECG available for comparison
[2020-07-14 11:02] VITALS: BP 167/97
[2020-07-14 15:44] VITALS: BP 162/71
[2020-07-14 19:58] VITALS: BP 153/80
[2020-07-14] MEDS: INSULIN GLARGINE SYRINGE. SQ SCH (21:00)
[2020-07-14] MEDS: LACTOBACILLUS RHAMNOSUS GG 1 CAPSULE. PO SCH (21:00)
[2020-07-14 22:23] VITALS: BP 151/83
--- NOTE | 2020-07-14 23:06 | PN ---
DATE: 07/14/2020 SUBJECTIVE: The patient is resting, slightly propped up in bed, in no apparent distress. She is definitely awake, alert, opens her eyes, tracks, but she is mostly nonverbal. She is on 2 liters of oxygen, maintaining her oxygen saturation at 93%. OBJECTIVE: GENERAL: When I examined her this afternoon, she looked well and was clearly in no apparent respiratory distress. No pallor, jaundice, cyanosis or thyromegaly. No jugular venous distention or limb edema. VITAL SIGNS: Her heart rate was 93, blood pressure was 167/97, temperature 97, respiratory rate was 18 and oxygen saturation of 93% on 2 liters. EYES, HEAD, NOSE, AND THROAT: Showed normocephalic, atraumatic. NECK: Supple. CARDIAC: Normal first and second heart sounds. No gallop or murmur. CHEST: Showed central trachea, equal bilateral expansion, air entry, vesicular sounds. No crepitation or rhonchi anteriorly. ABDOMEN: Distended, soft, nontender. NEUROLOGIC: She is definitely more awake, alert, open her eyes, tracks, but she is mostly nonverbal. Apparently, she is mostly bed bound, wheelchair bound. Her intake over the last 24 hours was 1050, output was 1050. LABORATORY DATA: As of this morning, her white cell count was 12,900, hemoglobin 14, hematocrit 44, MCV 100, and platelet count of 189,000. Her chemistry showed that her serum sodium went up to 150, potassium 4.5, chloride 115, carbon dioxide was 26, anion gap of 9, BUN 39, creatinine 1.3, estimated GFR was 40 mL per minute. Her glucose was 203, calcium was 9.2. Total bilirubin, AST, ALT, alkaline phosphatase were normal. Her total protein was 6.2, albumin 2.1. Her D-dimer was 0.58. Her urine culture has grown more than 100,000 colony forming units per mL of Aerococcus sanguinicola and Aerococcus urinae. I spoke with the lab and unfortunately they cannot be grown in the lab and sensitivities cannot be detected, but they are sensitive to penicillin and therefore, I continued with the IV Zosyn. ASSESSMENT: 1. Altered mental status is improving. 2. COVID-19 pneumonia. 3. Urinary tract infection with growth of Aerococcus urinae. 4. Acute hypoxic respiratory failure, slowly improving. 5. Hypertension. 6. Type 2 diabetes mellitus. 7. Drug-induced tremor. 8. Severe depression and anxiety. 9. Hypernatremia. PLAN: Continue with D5W, continue with IV Zosyn. The patient is definitely more awake, alert, opens her eyes, tracks, although continued to be obviously nonverbal and ____. STACEY MOORE MD DR: TASHI/paresh JOB#: [id number] / [id number]
[2020-07-14] MEDS: DEXAMETHASONE SOD PHOS 4 MG/ML VIAL. IVP SCH (23:19)
[2020-07-15] MEDS: INSULIN LISPRO 300 UNITS/3 ML VIAL. SQ SCH ×9 (00:30→23:54)
[2020-07-15 05:10] VITALS: BP 158/75
[2020-07-15] MEDS: PIPERACILLIN/TAZOBACTAM 2.25 GM in IV NORMAL SALINE 50ML 50 ML IV SCH ×3 (05:18→22:30)
[2020-07-15 10:12] VITALS: BP 141/60
[2020-07-15] MEDS: LACTOBACILLUS RHAMNOSUS GG 1 CAPSULE. PO SCH ×2 (10:12→21:00)
[2020-07-15] MEDS: IV DEXTROSE 5% 1,000 ML IV SCH ×2 (10:32→18:45)
[2020-07-15 15:00] VITALS: BP 133/71
[2020-07-15 16:26] LABS: HEMATOCRIT 38.6 % (36.0-47.0); HEMOGLOBIN 12.5 g/dL (12.0-15.5); RED BLOOD COUNT 3.98 x10^6/uL (3.50-5.40); RED CELL DISTRIBUTION WIDTH 15.6 % (11.5-14.5); WHITE BLOOD COUNT 10.3 x10^3/uL (4.0-11.0)
[2020-07-15 16:42] LABS: ALBUMIN 2.1 g/dL (3.4-5.0); ALBUMIN/GLOBULIN RATIO 0.5 (1.0-1.7); CALCIUM 9.6 mg/dL (8.5-10.1); CREATININE 1.2 mg/dL (0.6-1.0); GFR 44.5; TOTAL BILIRUBIN 0.6 mg/dL (0.2-1.0); TOTAL PROTEIN 6.3 g/dL (6.4-8.2)
[2020-07-15 20:03] VITALS: BP 123/78
[2020-07-15] MEDS: INSULIN GLARGINE SYRINGE. SQ SCH (21:28)
[2020-07-15] MEDS: DEXAMETHASONE SOD PHOS 4 MG/ML VIAL. IVP SCH (21:29)
[2020-07-15 22:38] VITALS: BP 131/97
[2020-07-16] MEDS: IV DEXTROSE 5% 1,000 ML IV SCH ×4 (02:07→21:01)
[2020-07-16] MEDS: INSULIN LISPRO 300 UNITS/3 ML VIAL. SQ SCH ×7 (02:45→20:45)
[2020-07-16] MEDS: PIPERACILLIN/TAZOBACTAM 2.25 GM in IV NORMAL SALINE 50ML 50 ML IV SCH ×3 (06:05→21:01)
[2020-07-16 06:17] VITALS: BP 137/90
--- NOTE | 2020-07-16 07:55 | PN ---
DATE: 07/15/2020 SUBJECTIVE: The patient is resting slightly propped up in bed, in no apparent distress. She was sleepy, opens her eyes and was smiling and tracking, although obviously she is nonverbal. PHYSICAL EXAMINATION: GENERAL: When I examined her, she looked well and was clearly in no apparent respiratory distress. No pallor, jaundiced, cyanosed or thyromegaly. No jugular venous distention. No lower limb edema. VITAL SIGNS: Her heart rate was 90, blood pressure was 133/71, temperature was 98.6, respiratory rate was 16, and oxygen saturation was 95% on 2 liters of oxygen. HEAD, EYES, EARS, NOSE AND THROAT: Showed normocephalic, atraumatic. NECK: Supple. HEART: Normal first and second heart sounds. No gallop or murmur. CHEST: Clear to auscultation. No crepitation or rhonchi. ABDOMEN: Distended, soft, nontender. NEUROLOGIC: She is definitely more awake, alert, opens eyes, tracks, but obviously nonverbal. According to the [facility], the only thing she can do is feed herself when she was there and she was mostly wheelchair bound. Her intake as of yesterday was 1340, output was 850. LABORATORY DATA: As of this morning, her serum sodium was 143, potassium 4, chloride 107, bicarbonate 27, anion gap of 9, BUN 30, creatinine 1.2, estimated GFR was 44 mL per minute. Her glucose was 268, calcium was 9.6. Total bilirubin and alkaline phosphatase normal. AST, ALT slightly elevated. Total protein 6.3, albumin 2.1. Her white cell count was 10,000, hemoglobin 12.5, hematocrit 38.6, MCV 97 and platelet count 221,000. Urinalysis showed moderate amount of leukocyte esterase, more than 40 wbc's, and many bacteria. Her urine culture has grown more than 100,000 colony forming units per mL of Aerococcus sanguinicola as well as Aerococcus urinae, both are sensitive to penicillins. Her blood cultures are so far negative after 3 days. ASSESSMENT: 1. Altered mental status is improving. The patient now is awake, alert, opens her eyes, tracks and smiles though she is nonverbal. 2. COVID-19 pneumonia. 3. Urinary tract infection with growth of Aerococcus urinae. 4. Acute hypoxic respiratory failure, slowly improving. 5. Hypertension. 6. Type 2 diabetes mellitus. 7. Drug-induced tremors. 8. Severe depression and anxiety. 9. Hypernatremia that has resolved. In fact, her serum sodium came down from 150 down to 143. PLAN: My plan is obviously to continue with D5W at 150 mL per hour. Continue with dexamethasone. Continue with piperacillin and tazobactam. Eventually, the patient can be discharged on amoxicillin or Augmentin once she is able to take by mouth. STACEY MOORE MD DR: TASHI/paresh JOB#: [id number] / [id number]
[2020-07-16] MEDS: LACTOBACILLUS RHAMNOSUS GG 1 CAPSULE. PO SCH ×2 (08:49→20:34)
[2020-07-16 11:02] VITALS: BP 169/85
[2020-07-16 15:13] VITALS: BP 137/68
--- NOTE | 2020-07-16 17:35 | PN ---
DATE: 07/16/2020 ATTENDING PHYSICIAN: Dr. Workman. SUBJECTIVE: Nonverbal. She does open her eyes. There is no apparent respiratory distress. OBJECTIVE FINDINGS: VITAL SIGNS: Blood pressure today is 137/90 mmHg, temperature 97.0 degrees Fahrenheit, pulse 82 and regular, oxygen saturation 93% on 2 liters of nasal cannula. HEENT: Head is without trauma. Pupils are reactive. Sclerae are nonicteric. Oropharynx clear. NECK: Supple, no bruits. LUNGS: Shallow respirations. CARDIOVASCULAR: Showed distant heart tones. No gallops. ABDOMEN: Soft. No guarding. EXTREMITIES: Showed no cyanosis or edema. NEUROLOGIC: The patient is nonverbal. She is unresponsive. She has a blank stare of catatonia. SKIN: Warm and dry. ASSESSMENT: 1. A 70-year-old female with altered mentation. She may be close to her baseline. 2. COVID-19 pneumonia. 3. Urinary tract infection. 4. Acute hypoxemic respiratory failure, improving. 5. Essential hypertension. 6. Type 2 diabetes. 7. Drug-induced tremors. 8. Hypernatremia, being corrected. 9. Catatonia. PLAN: 1. Continue antibiotics as ordered. 2. Decrease IV rate. 3. Follow up chemistries. 4. Diet as tolerated. She is a DNR per advance directive. ÓSCAR GILES MD DR: STEVEN/paresh JOB#: [id number] / [id number]
[2020-07-16 20:00] VITALS: BP 132/65
[2020-07-16] MEDS: DEXAMETHASONE SOD PHOS 4 MG/ML VIAL. IVP SCH (21:02)
[2020-07-16] MEDS: INSULIN GLARGINE SYRINGE. SQ SCH (21:07)
[2020-07-17] MEDS: INSULIN LISPRO 300 UNITS/3 ML VIAL. SQ SCH ×3 (00:15→06:26)
[2020-07-17] MEDS: IV DEXTROSE 5% 1,000 ML IV SCH (03:50)
[2020-07-17] MEDS: PIPERACILLIN/TAZOBACTAM 2.25 GM in IV NORMAL SALINE 50ML 50 ML IV SCH (06:00)
[2020-07-17 06:13] VITALS: BP 169/81
--- NOTE | 2020-07-17 12:01 | DS ---
DATE OF DISCHARGE: 07/17/2020 ATTENDING PHYSICIAN: Dr. Workman FINAL DISCHARGE DIAGNOSES: 1. COVID-19 pneumonia. 2. Altered mentation, improved, back to baseline. 3. Frequent urinary tract infection. 4. Underlying schizoaffective disorder. 5. Type 2 diabetes mellitus. 6. Essential hypertension. 7. Drug-induced tremors. 8. Catatonic state. 9. The patient is nonverbal. HISTORY AND PHYSICAL: This unfortunate 70-year-old female with underlying psychiatric issues was admitted with hypoxemia, altered mentation and evidence of COVID-19 pneumonia. She is from long-term care. PHYSICAL EXAMINATION: Please see the dictated note. PERTINENT LABORATORY AND X-RAY STUDIES: Extensive on the database. Prior to discharge, her hemoglobin was 12.5 g, white count 10,000. Blood sugars were adequate. Chemistry panel shows sodium 143 mEq, potassium 4.0, creatinine 1.2 mg/dL. Troponin was measured at 0.299. COURSE IN THE HOSPITAL: The patient was admitted. She was treated for comfort measures and empiric antibiotics. Home meds, some were continued. The elevated enzymes were noted as troponin. This is stress demand ischemia. The family was notified. They did not want any heroics or further workup. She is not able to eat. She is nonambulatory and basically is in decline. The family requested [facility] the [facility] with end of life care and hospice and this will be accomplished. On the sixth hospital day, she was discharged from our hospital to continue her care at [facility] and hospice will be involved. Her discharge meds have been simplified. They will continue her apixaban, Celexa, Depakote, Synthroid, nystatin and Invega dosages unchanged. For now, we have held her Tylenol, benztropine, bisacodyl, calcium, cranberry, Pepcid, Lasix, glimepiride, magnesium hydroxide dosages for now. Her prognosis is terminal. She is a DNR status. She was discharged then from our hospital in stable condition with explicit instructions and followup care. TOTAL DISCHARGE TIME SPENT: 39 minutes. ÓSCAR GILES MD DR: STEVEN/paresh JOB#: [id number] / [id number] STACEY Lentz MD
== END 2020-07-17 12:06 | disposition hospice, inpatient (51) | DRG 177 ==
LOC: ER 03:31 → 1 SOUTH 06:40
PROVIDERS: ADMIT Internal Medicine; ATTEND Hospitalist
DX: U07.1 COVID-19 (principal); J96.01 Acute respiratory failure with hypoxia; J12.89 Other viral pneumonia; I74.3 Embolism and thrombosis of arteries of the lower extremities; E87.0 Hyperosmolality and hypernatremia; N39.0 Urinary tract infection, site not specified; I24.8 Other forms of acute ischemic heart disease; E03.9 Hypothyroidism, unspecified; E11.9 Type 2 diabetes mellitus without complications; E86.0 Dehydration; F25.9 Schizoaffective disorder, unspecified; F31.9 Bipolar disorder, unspecified; Z66 Do not resuscitate; F41.9 Anxiety disorder, unspecified; G47.00 Insomnia, unspecified; H40.9 Unspecified glaucoma; G25.1 Drug-induced tremor; I10 Essential (primary) hypertension; K21.9 Gastro-esophageal reflux disease without esophagitis; Z88.8 Allergy status to other drugs, medicaments and biological substances; R29.6 Repeated falls; R62.7 Adult failure to thrive; Y95 Nosocomial condition; Z51.5 Encounter for palliative care; Z79.01 Long term (current) use of anticoagulants; Z87.891 Personal history of nicotine dependence; Z91.81 History of falling; Z99.3 Dependence on wheelchair
CPT/HCPCS: 36415; 70450; 71045; 72125; 80048; 80053; 80076; 81001; 82550; 82947; 83735; 83880; 84443; 84484; 85007; 85025; 85027; 85379; 87040; 87077; 87086; 93005; 96361; 96365; 96372; J0456; J0696; J1100; J1815; J2543; J7050; J7120; P9612; 99285-25